=== PATIENT | female | born 1960 | race Hispanic/Latino ===

== ENCOUNTER 2018-03-25 06:45 | Day surgery (SDC) | payer OTHER ==
--- OUTSIDE RECORDS SUMMARY | 2018-03-25 06:57 | XMS REPORT ---
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, unspecified laterality Problem Breast cancer C50.919 Active Problem Post-menopausal bleeding N95.0 Active Problem Overactive bladder N32.81 Active Problem Mixed hyperlipidemia E78.2 Active Problem Colon polyps K63.5 Active Problem Chronic depressive person F34.1 Active Problem Other osteoporosis M81.8 Active Problem Edema R60.9 Active Problem Fatty liver K76.0 Active Problem Thrombocytopenia D69.6 Active Problem HTN (hypertension) I10 Active Problem Obesity E66.9 Active Problem 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 Problem Hyperglycemia R73.9 Active Problem Secondary esophageal varices I85.10 Active without bleeding Assessment Prediabetes R73.03 Active Problem Hypothyroidism E03.9 Active Problem Intramural leiomyoma of uterus D25.1 Active Medications Medication Code Code Instructions Start End Date Status Dosage System Date Metformin HCl [facility] 54503173889 500 MG Orally Active 1/2 Twice a day tablet with meals Results No Known Results Summary Purpose eClinicalWorks Submission
--- OUTSIDE RECORDS SUMMARY | 2018-03-25 06:57 | XMS REPORT ---
:1960 Author Organization e[employer]Works Care Team Providers Name Role Phone Murillo, Na Provider Role Unavailable Allergies, Adverse Reactions, Alerts Substance Reaction Event Type Lisinopril Info Not Available Drug Allergy Problems Problem Type Condition Code Onset Dates Condition Status Assessment Overactive bladder N32.81 Active Assessment Post-menopausal bleeding N95.0 Active Assessment Vaginal spotting N92.0 Active Assessment Urinary frequency R35.0 Active Problem Secondary esophageal varices I85.10 Active without bleeding Assessment Hematuria, unspecified R31.9 Active Problem Intramural leiomyoma of uterus D25.1 Active Assessment Urinary tract infection, site not N39.0 Active specified Problem Splenomegaly R16.1 Active Problem Allergic rhinitis, seasonal J30.2 Active Problem 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) Problem Vaginal spotting N92.0 Active Problem 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, unspecified laterality Problem Gastroesophageal reflux disease K21.9 Active Problem Breast cancer C50.919 Active Problem Overactive bladder N32.81 Active Problem Post-menopausal bleeding N95.0 Active Problem Mixed hyperlipidemia E78.2 Active Problem Colon polyps K63.5 Active Problem Chronic depressive person F34.1 Active Problem Other osteoporosis M81.8 Active Problem Edema R60.9 Active Problem Fatty liver K76.0 Active Problem Thrombocytopenia D69.6 Active Problem HTN (hypertension) I10 Active Problem Obesity E66.9 Active Problem 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 Problem Hyperglycemia R73.9 Active Problem Hypothyroidism E03.9 Active Medications Medication Code Code Instructions Start End Status Dosage System Date Date Levothyroxine [facility] 68314050936 112 MCG Orally Active 1 tablet on an Sodium Once a day empty stomach in the morning Macrobid [facility] 18726653927 100 MG Orally July Active 1 capsule with every 12 hrs 21, 28, food 2017 2017 Nadolol [facility] 75776337461 40MG Active TAKE ONE TABLET BY MOUTH ONCE DAILY Metformin HCl [facility] 73908893906 500 MG Orally Active 1/2 tablet Twice a day with meals Pennsaid [facility] 40829185989 2 % Active 2 applications Transdermal to affected Twice a day area Arimidex [facility] 13296282783 1 MG Orally Active 1 tablet Once a day Results No Known Results Summary Purpose eClinicalWorks Submission
--- OUTSIDE RECORDS SUMMARY | 2018-03-25 06:58 | XMS REPORT ---
[...] Secondary esophageal varices I85.10 Active without bleeding Problem Hypothyroidism E03.9 Active Problem Intramural leiomyoma of uterus D25.1 Active Medications No Known Medications Results No Known Results Summary Purpose eClinicalWorks Submission
--- OUTSIDE RECORDS SUMMARY | 2018-03-25 06:58 | XMS REPORT ---
:1960 Author Organization eClinicalWorks Care Team Providers Name Role Phone Tish Amor Provider Role Unavailable Allergies, Adverse Reactions, Alerts [...] in situ Z86.000 Active (DCIS) of breast Assessment Tinea B35.9 Active Problem Hyperglycemia R73.9 Active Problem Secondary esophageal varices I85.10 Active without bleeding Problem Hypothyroidism E03.9 Active Problem Intramural leiomyoma of uterus D25.1 Active Medications Medication Code Code Instructions Start End Status Dosage System Date Date Calcium + D [facility] [address] Active not defined Nadolol [facility] 01733891351 40MG Active TAKE ONE TABLET BY MOUTH ONCE DAILY Metformin HCl [facility] 52545962756 500 MG Orally Active 1/2 tablet Twice a day with meals Pennsaid [facility] 69565579627 2 % Active 2 applications Transdermal to affected Twice a day area Levothyroxine [facility] 57908227918 125 MCG Orally Active TAKE ONE Sodium Once a day TABLET BY MOUTH ONCE DAILY Diflucan [facility] 00821964284 150 MG Orally November Active 1 tablet once a week 2017 Fosamax [facility] [address]-89 Active not defined Arimidex [facility] 72313827512 1 MG Orally Active 1 tablet Once a day Results No Known Results Summary Purpose eClinicalWorks Submission
[2018-03-25] MEDS ORDERED: NA CHLORIDE 0.9% 1,000 ML ONE (07:00)
[2018-03-25 07:07] VITALS: TEMP 96.8
[2018-03-25] MEDS ORDERED: LIDOCAINE 1% MPF 5 ML VIAL ONE (07:45)
[2018-03-25] MEDS ORDERED: PROPOFOL 200 MG/20 ML VIAL IV ONE ×2 (07:45→08:15)
--- NOTE | 2018-03-25 08:17 | ENDO RPT ---
[address], [address] EGD PROCEDURE REPORT EXAM DATE: 03/25/2018 PATIENT NAME: Adry De Guzman MR#: [id number] BIRTHDATE: 1960 ATTENDING: Shailesh Lazcano Dr STATUS: outpatient NAIL TECH: Cecille Riley and Darling Solomon RN INDICATIONS: The patient is a 57 yr old Female here for an EGD due to bleeding varices PROCEDURE PERFORMED: EGD with banding MEDICATIONS: Per Anesthesia. TOPICAL ANESTHETIC: none CONSENT: The patient understands the risks and benefits of the procedure and understands that these risks include, but are not limited to: sedation, allergic reaction, infection, perforation and/or bleeding. Alternative means of evaluation and treatment include, among others: physical exam, x-rays, and/or surgical intervention. The patient elects to proceed with this endoscopic procedure. DESCRIPTION OF PROCEDURE: During intra-op preparation period all mechanical medical equipment was checked for proper function. Hand hygiene and appropriate measures for infection prevention was taken. Procedure, possible complications, and alternatives including but not limited to the possibility of bleeding, perforation, tear, infection, sepsis, need for surgery, need for blood transfusion, and anesthesia related complications were explained to the patient. After the risks, benefits and alternatives of the procedure were thoroughly explained, Informed consent was verified, confirmed and timeout was successfully executed by the treatment team. The patient was placed in the left lateral position. The patient was anesthetized with topical anesthesia. Through the anesthetized oropharyngeal area, the scope was passed without any difficulty. The Pentax EG-[id number] ([id number]) endoscope was introduced through the mouth and advanced to the second portion of the duodenum. Retroflexed views revealed a small hiatal hernia. The gastroscope was then slowly withdrawn and removed. Grade II varices were found in the lower esophagus. Esophageal banding was performed. A small hiatal hernia was found Mild gastritis was found in the body and the antrum of the stomach. A sessile polyp was found in the body of the stomach. ADVERSE EVENTS: There were no complications. IMPRESSIONS: 1. Two columns of grade II varices in the lower esophagus, s/p banding X2 2. Small hiatal hernia 3. Mild gastritis (bile induced) in the body and the antrum of the stomach 4. 4 sessile friable 3-5 mm polyps in the body of the stomach, with minor after abrasion with endoscope RECOMMENDATIONS: REPEAT EXAM: Shailesh Lazcano Dr eSigned: Shailesh Lazcano Dr 03/25/2018 8:08 AM cc: CPT CODES: ICD9 CODES: PATIENT NAME: Adry De Guzman MR#: [id number]
--- NOTE | 2018-03-25 08:31 | ENDO RPT ---
[address], [address] COLONOSCOPY PROCEDURE REPORT EXAM DATE: 03/25/2018 PATIENT NAME: Adry De Guzman MR #: [id number] BIRTHDATE: 1960 ATTENDING: Shailesh Lazcano Dr STATUS: outpatient NIGHT ORDER SELECTOR: Cecille Riley and Darling Solomon RN INDICATIONS: The patient is a 57 yr old Female here for a colonoscopy due to personal history of colon polyps PROCEDURE PERFORMED: Colonoscopy MEDICATIONS: Per Anesthesia. ESTIMATED BLOOD LOSS: None CONSENT: The patient understands the risks and benefits of the procedure and understands that these risks include, but are not limited to: sedation, allergic reaction, infection, perforation and/or bleeding. Alternative means of evaluation and treatment include, among others: physical exam, x-rays, and/or surgical intervention. The patient elects to proceed with this endoscopic procedure. DESCRIPTION OF PROCEDURE: During intra-op preparation period all mechanical medical equipment was checked for proper function. Hand hygiene and appropriate measures for infection prevention was taken. Procedure, possible complications, alternatives including, but not limited to possibility of bleeding, perforation, tear, infection, sepsis, need for surgery, need for blood transfusion, were explained to the patient. After the risks, benefits and alternatives of the procedure were thoroughly explained, Informed consent was verified, confirmed and timeout was successfully executed by the treatment team. The patient was placed in the left lateral position. A digital rectal exam was performed and revealed no abnormalities of the rectum. After appropriate level of anesthesia, the scope was passed. The EG-2990i ([id number]) and EC-[id number] ([id number]) endoscope was introduced through the anus and advanced to the terminal ileum which was intubated for a short distance. The quality of the prep was good. The instrument was then slowly withdrawn as the colon was fully examined. Scope withdrawal time was 7 minutes. COLON FINDINGS: Mild diverticulosis was noted in the sigmoid colon. Small internal hemorrhoids were found. Retroflexed views revealed small hemorrhoids. The scope was then completely withdrawn from the patient and the procedure terminated. ADVERSE EVENTS: There were no complications. IMPRESSIONS: 1. Mild diverticulosis in the sigmoid colon 2. Small internal hemorrhoids 3. Intubation to terminal ileum RECOMMENDATIONS: fiber rich diet RECALL: Return in 3 year(s) for Colonoscopy. Shailesh Lazcano Dr eSigned: Shailesh Lazcano Dr 03/25/2018 8:31 AM cc: Melinda Murillo M.D. CPT CODES: ICD9 CODES: PATIENT NAME: Adry De Guzman MR#: [id number]
[2018-03-25 08:51] VITALS: O2SAT 98
[2018-03-25 08:52] VITALS: BP 134/63
== END 2018-03-25 08:55 | disposition home or self-care (01) ==
LOC: OR 06:45
PROVIDERS: ATTEND Internal Medicine Gastroenterology
PROC: 0DJD8ZZ Inspection of Lower Intestinal Tract, Via Natural or Artificial Opening Endoscopic (ICD-10-PCS; principal; 2018-03-25 08:45)
PROC: 0W3P8ZZ Control Bleeding in Gastrointestinal Tract, Via Natural or Artificial Opening Endoscopic (ICD-10-PCS; 2018-03-25 08:45)
DX: I85.01 Esophageal varices with bleeding (principal); K29.60 Other gastritis without bleeding; K57.30 Diverticulosis of large intestine without perforation or abscess without bleeding; K31.7 Polyp of stomach and duodenum; K44.9 Diaphragmatic hernia without obstruction or gangrene; K64.8 Other hemorrhoids; K21.9 Gastro-esophageal reflux disease without esophagitis; E11.9 Type 2 diabetes mellitus without complications; I10 Essential (primary) hypertension; E03.9 Hypothyroidism, unspecified; Z86.010 Personal history of colon polyps; Z85.3 Personal history of malignant neoplasm of breast; Z87.891 Personal history of nicotine dependence; Z88.8 Allergy status to other drugs, medicaments and biological substances; Z83.71 Family history of colonic polyps; Z82.49 Family history of ischemic heart disease and other diseases of the circulatory system
CPT/HCPCS: 82962; J2704; J7030

== ENCOUNTER 2018-08-17 16:38 | Emergency (ER) | payer OTHER ==
--- OUTSIDE RECORDS SUMMARY | 2018-08-17 16:41 | XMS REPORT ---
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) Problem Seasonal allergies J30.2 Active Problem Esophageal varices determined by I85.00 Active endoscopy Problem Gastroesophageal reflux disease K21.9 Active Problem Breast cancer C50.919 Active Problem Personal history of malignant Z85.3 Active neoplasm of breast Problem Post-menopausal bleeding N95.0 Active Problem Mixed hyperlipidemia E78.2 Active Problem Colon polyps K63.5 Active Problem Vaginal spotting N92.0 Active Problem Overactive bladder N32.81 Active Problem Edema R60.9 Active Problem Fatty liver K76.0 Active Problem Thrombocytopenia D69.6 Active Problem HTN (hypertension) I10 Active Problem Obesity E66.9 Active Problem 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 Problem Hyperglycemia R73.9 Active Problem Hypothyroidism E03.9 Active Medications Medication Code Code Instructions Start End Date Status Dosage System Date Cyclobenzaprine [facility] 34607199046 10 MG Orally July Active 1 tablet HCl once a day at 2018 as bedtime needed Results No Known Results Summary Purpose eClinicalWorks Submission
--- OUTSIDE RECORDS SUMMARY | 2018-08-17 16:41 | XMS REPORT ---
[...] R73.9 Active Problem Hypothyroidism E03.9 Active Medications No Known Medications Results No Known Results Summary Purpose eClinicalWorks Submission
--- OUTSIDE RECORDS SUMMARY | 2018-08-17 16:41 | XMS REPORT ---
:1960 Author Organization eClinicalWorks Care Team Providers Name Role Phone Murillo, Na Provider Role Unavailable Allergies, Adverse Reactions, Alerts Substance Reaction Event Type Lisinopril Info Not Available Drug Allergy Problems Problem Type Condition Code Onset Dates Condition Status Assessment Seasonal allergies J30.2 Active Assessment Encounter for follow-up examination Z08 Active after completed treatment for malignant neoplasm Assessment 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 Assessment Hypothyroidism E03.9 Active Assessment HTN (hypertension) I10 Active Assessment Prediabetes R73.03 Active Assessment Ingrown nail of great toe of right L60.0 Active foot Problem Other osteoporosis M81.8 Active Problem Chronic [...] N92.0 Active Problem Overactive bladder N32.81 Active Assessment Mastodynia N64.4 Active Problem Edema R60.9 Active Assessment Personal history of malignant Z85.3 Active neoplasm of breast Problem Fatty liver K76.0 Active Assessment Esophageal varices determined by I85.00 Active endoscopy Problem Thrombocytopenia D69.6 Active Assessment Unspecified lump in the left N63.20 Active breast, unspecified quadrant Problem HTN (hypertension) I10 Active Problem Obesity E66.9 Active Assessment Screening, lipid Z13.220 Active Problem 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 Problem Hyperglycemia R73.9 Active Problem Hypothyroidism E03.9 Active Medications Medication Code Code Instructions Start End Status Dosage System Date Date Metformin HCl [facility] 46508563840 500 MG Orally Active 1/2 tablet Twice a day with meals Calcium + D [facility] [address] Active not defined Arimidex [facility] 78972749784 1 MG Orally Active 1 tablet Once a day Keflex [facility] 22756700809 500 MG Orally Jun 30 Active 1 capsule every 12 hrs 2018 Diflucan [facility] 23104463059 150 MG Orally November Active 1 tablet once a week 2017 Nadolol [facility] 63378610386 40MG Active TAKE ONE TABLET BY MOUTH ONCE DAILY Nadolol [facility] 73118339133 40MG Active TAKE ONE TABLET BY MOUTH ONCE DAILY Levothyroxine [facility] 75123689673 112 MCG Orally Active 1 tablet on an Sodium Once a day empty stomach in the morning Pennsaid [facility] 91857085332 2 % Active 2 applications Transdermal to affected Twice a day area Levothyroxine [facility] 15238281893 125 MCG Orally Active TAKE ONE Sodium Once a day TABLET BY MOUTH ONCE DAILY Fosamax [facility] [address]-89 Active not defined Results No Known Results Summary Purpose eClinicalWorks Submission
--- OUTSIDE RECORDS SUMMARY | 2018-08-17 16:41 | XMS REPORT ---
[...] Date Status Dosage System Date Metformin HCl [facility] 68756051703 500 MG Orally Active 1/2 Twice a day tablet with meals Results No Known Results Summary Purpose eClinicalWorks Submission
--- OUTSIDE RECORDS SUMMARY | 2018-08-17 16:41 | XMS REPORT ---
[...] End Status Dosage System Date Date Levothyroxine [facility] 81136499428 112 MCG Orally Active 1 tablet on an Sodium Once a day empty stomach in the morning Macrobid [facility] 79518883910 100 MG Orally July Active 1 capsule with every 12 hrs 21, 28, food 2017 2017 Nadolol [facility] 30672080955 40MG Active TAKE ONE TABLET BY MOUTH ONCE DAILY Metformin HCl [facility] 48127828391 500 MG Orally Active 1/2 tablet Twice a day with meals Pennsaid [facility] 04518004424 2 % Active 2 applications Transdermal to affected Twice a day area Arimidex [facility] 03510696949 1 MG Orally Active 1 tablet Once a day Results No Known Results Summary Purpose eClinicalWorks Submission
--- OUTSIDE RECORDS SUMMARY | 2018-08-17 16:41 | XMS REPORT ---
[...] Dosage System Date Date Calcium + D [facility] [address] Active not defined Nadolol [facility] 27526323757 40MG Active TAKE ONE TABLET BY MOUTH ONCE DAILY Metformin HCl [facility] 24277881334 500 MG Orally Active 1/2 tablet Twice a day with meals Pennsaid [facility] 69591045625 2 % Active 2 applications Transdermal to affected Twice a day area Levothyroxine [facility] 70721732203 125 MCG Orally Active TAKE ONE Sodium Once a day TABLET BY MOUTH ONCE DAILY Diflucan [facility] 65391187734 150 MG Orally November Active 1 tablet once a week 2017 Fosamax [facility] [address]-41 Active not defined Arimidex [facility] 06374925728 1 MG Orally Active 1 tablet Once a day Results No Known Results Summary Purpose eClinicalWorks Submission
[2018-08-17] MEDS ORDERED: DIAZEPAM 2 MG TABLET ONE (18:00)
--- NOTE | 2018-08-17 18:46 | RAD REPORT ---
EXAM DESCRIPTION: RAD - Knee Left 3 View - 08/17/2018 5:40 pm CLINICAL HISTORY: knee pain COMPARISON: Knee Left 3 View dated 11/07/2016 FINDINGS: Mild arthritic changes are present. No fracture, dislocation or aggressive marrow pattern. No intraarticular joint effusion.
--- NOTE | 2018-08-17 18:47 | RAD REPORT ---
EXAM DESCRIPTION: US - Extremity Venous Uni Ltd - 08/17/2018 6:06 pm CLINICAL HISTORY: PAIN Leg swelling and edema. COMPARISON: No comparisons FINDINGS: Left lower extremity venous system was interrogated with Doppler technique. Normal flow, c ompressibility and augmentation was noted. There is no DVT present. IMPRESSION: No evidence of left lower extremity deep venous thrombosis.
--- NOTE | 2018-08-17 19:06 | EDPHYS ---
Physician Documentation [facility] Name: Adry De Guzman Age: 58 yrs Sex: Female : 1960 Arrival Date: 08/17/2018 Time: 16:40 Bed 17 Private MD: ED Physician Bebo Noav HPI: 08/17 16:51 This 58 yrs old Female presents to ER via Ambulatory with complaints of Leg jmm Pain. 16:51 The patient presents with an injury, pain. Onset: The symptoms/episode began/occurred jmm gradually, 3 week(s) ago. Modifying factors: The symptoms are alleviated by nothing. the symptoms are aggravated by nothing. This is a 58 year old female with a history of dm, htn that presents to the ED with complaints of left lateral knee pain, calf pain, and left posterior knee pain. Symptoms have been intermittent over the past 3 weeks worsening over the past week. Patient prescribed muscle relaxer with no relief. Patient denies chest pain, denies shortness of breath. Denies fever. . Historical: - Allergies: 16:46 Lisinopril; la1 - PMHx: 16:46 Hypertension; Hypothyroidism; Osteoporosis; Diabetes - NIDDM; breast CA; liver fibrosis;la1 - PSHx: 16:46 Cholecystectomy; Lumpectomy; la1 - Immunization history:: Adult Immunizations up to date. - Social history:: Smoking status: Patient/guardian denies using tobacco. - Ebola Screening: : No symptoms or risks identified at this time. ROS: 16:51 Constitutional: Negative for fever, chills, and weight loss, Cardiovascular: Negative jmm for chest pain, palpitations, and edema, Respiratory: Negative for shortness of breath, cough, wheezing, and pleuritic chest pain. 16:51 MS/extremity: Positive for pain. 16:51 All other systems are negative. Exam: 16:51 Constitutional: This is a well developed, well nourished patient who is awake, alert, jmm and in no acute distress. Head/Face: atraumatic. Eyes: EOMI, no conjunctival erythema appreciated ENT: Moist Mucus Membranes Neck: Trachea midline, Supple Chest/axilla: Normal chest wall appearance and motion. Cardiovascular: Regular rate and rhythm. No edema appreciated Respiratory: Normal respirations, no respiratory distress appreciated Abdomen/GI: Non distended, soft Back: Normal ROM Skin: General appearance color normal 16:51 Musculoskeletal/extremity: FROM appreciated to the left knee, no erythema or swelling is appreciated, pain localized to the lateral posterior region. compartments are soft, full dorsalis pedis pulse, NVI. 16:51 Skin: Appearance: Color: normal in color. 16:51 Neuro: Orientation: is normal, Mentation: is normal, Memory: is normal. 16:51 Psych: Behavior/mood is pleasant, cooperative. Vital Signs: 16:46 BP 145 / 67; Pulse 71; Resp 16; Temp 97.3; Pulse Ox 98% on R/A; Weight 111.58 kg; la1 Height 5 ft. 6 in. (167.64 cm); 19:05 BP 148 / 63; Pulse 75; Resp 17 S; Pulse Ox 98% on R/A; cc3 16:46 Body Mass Index 39.71 (111.58 kg, 167.64 cm) la1 MDM: 16:51 Patient medically screened. coco 19:04 Data reviewed: vital signs, nurses notes. Counseling: I had a detailed discussion with teresa the patient and/or guardian regarding: the historical points, exam findings, and any diagnostic results supporting the discharge/admit diagnosis, radiology results, the need for outpatient follow up, to return to the emergency department if symptoms worsen or persist or if there are any questions or concerns that arise at home. ED course: Imaging studies negative. No SOB, NO Chest pain. I do not suspect PE. Patient advised to follow up with ortho for further evaluation. patient understood and agrees with the plan of care. . 08/17 17:07 Order name: Knee Left 3 View XRAY; Complete Time: 18:49 [facility] 08/17 17:07 Order name: US Extremity Venous Unilateral Ltd; Complete Time: 18:49 [facility] Administered Medications: 17:51 Drug: Valium 2 mg Route: PO; em 19:00 Follow up: Response: No adverse reaction cc3 Disposition: 08/18 08:01 Co-signature as Attending Physician, Bebo Nova MD I agree with the assessment and [facility] plan of care. Chart complete. Disposition: 08/17/18 19:05 Discharged to Home. Impression: Pain in left leg. - Condition is Stable. - Discharge Instructions: Musculoskeletal Pain. - Prescriptions for Tramadol 50 mg Oral Tablet - take 1 tablet by ORAL route every 8 hours as needed; 12 tablet. - Medication Reconciliation Form, Thank You Letter, Antibiotic Education, Prescription Opioid Use form. - Follow up: Jorge Mcnamara MD; When: 2 - 3 days; Reason: Recheck today's complaints, Continuance of care, Re-evaluation by your physician. Signatures: Dispatcher [employer] Bebo Painter MD MD cha Mickail, Joel, PA PA jmm Munoz, Edgar, SPEED RUNNER SPEED RUNNER Won Serrano RN RN la1 Maryann Couch cc3 Corrections: (The following items were deleted from the chart) 08/17 19:19 19:05 08/17/2018 19:05 Discharged to Home. Impression: Pain in left leg. Condition is cc3 Stable. Forms are Medication Reconciliation Form, Thank You Letter, Antibiotic Education, Prescription Opioid Use. Follow up: Jorge Mcnamara; When: 2 - 3 days; Reason: Recheck today's complaints, Continuance of care, Re-evaluation by your physician. teresa
--- NOTE | 2018-08-17 19:06 | ER ---
Nurse's Notes [facility] Name: Adry De Guzman Age: 58 yrs Sex: Female : 1960 Arrival Date: 08/17/2018 Time: 16:40 Bed 17 Private MD: Diagnosis: Pain in left leg Presentation: 08/17 16:44 Presenting complaint: Patient states: I have had a pain behind my left knee and down my la1 calf for about 3 weeks. Pt denies CP/SOB. Transition of care: patient was not received from another setting of care. Onset of symptoms was August 17, 2018. Risk Assessment: Do you want to hurt yourself or someone else? Patient reports no desire to harm self or others. Initial Sepsis Screen: Does the patient meet any 2 criteria? No. Patient's initial sepsis screen is negative. Does the patient have a suspected source of infection? No. Patient's initial sepsis screen is negative. Care prior to arrival: None. 16:44 Method Of Arrival: Ambulatory la1 16:44 Acuity: JULEE 3 la1 Historical: - Allergies: 16:46 Lisinopril; la1 - PMHx: 16:46 Hypertension; Hypothyroidism; Osteoporosis; Diabetes - NIDDM; breast CA; liver fibrosis;la1 - PSHx: 16:46 Cholecystectomy; Lumpectomy; la1 - Immunization history:: Adult Immunizations up to date. - Social history:: Smoking status: Patient/guardian denies using tobacco. - Ebola Screening: : No symptoms or risks identified at this time. Screenin:15 Abuse screen: Denies threats or abuse. Nutritional screening: No deficits noted. em Tuberculosis screening: No symptoms or risk factors identified. Fall Risk None identified. Assessment: 17:15 General: Appears in no apparent distress. comfortable, Behavior is calm, cooperative, em Denies fever. Pain: Complains of pain in posterior aspect of left knee Pain currently is 7 out of 10 on a pain scale. Neuro: Level of Consciousness is awake, alert, obeys commands, Oriented to person, place, time, situation. Cardiovascular: Denies chest pain, Capillary refill < 3 seconds Patient's skin is warm and dry. Respiratory: Airway is patent Respiratory effort is even, unlabored, Respiratory pattern is regular, symmetrical, Breath sounds are clear bilaterally. Denies shortness of breath. Derm: Skin is intact, is healthy with good turgor, Skin is pink, warm \T\ dry. Musculoskeletal: Capillary refill < 3 seconds, Range of motion: intact in all extremities. 17:25 Reassessment: I agree with previous assessment. hb 18:42 Reassessment: Patient appears in no apparent distress at this time. Patient and/or em family updated on plan of care and expected duration. Pain level reassessed. Patient is alert, oriented x 3, equal unlabored respirations, skin warm/dry/pink. pending results. 19:00 Reassessment: Patient appears in no apparent distress at this time. Patient and/or cc3 family updated on plan of care and expected duration. Pain level reassessed. Patient is alert, oriented x 3, equal unlabored respirations, skin warm/dry/pink. 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 No IV cannula in situ. Patient denies pain at this time. Patient states feeling better. 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 No IV cc3 cannula in situ. Patient left ER vitally stable and ambulatory with her daughter. Vital Signs: 16:46 BP 145 / 67; Pulse 71; Resp 16; Temp 97.3; Pulse Ox 98% on R/A; Weight 111.58 kg; la1 Height 5 ft. 6 in. (167.64 cm); 19:05 BP 148 / 63; Pulse 75; Resp 17 S; Pulse Ox 98% on R/A; cc3 16:46 Body Mass Index 39.71 (111.58 kg, 167.64 cm) la1 ED Course: 16:40 Patient arrived in ED. as 16:44 Triage completed. la1 16:46 Arm band placed on right wrist. la1 16:47 Chris Mireles PA is PHCP. jose carlos 16:47 Bebo Nova MD is Attending Physician. bairon 16:47 Carter Church LVN is Primary Nurse. em 17:15 Patient has correct armband on for positive identification. Placed in gown. Bed in low em position. Call light in reach. Adult w/ patient. 17:40 Knee Left 3 View XRAY In Process Unspecified. EDMS 18:05 US Extremity Venous Unilateral Ltd In Process Unspecified. EDMS 18:05 Ultrasound completed. Patient tolerated well. sg3 19:05 Jorge Mcnamara MD is Referral Physician. [facility] 19:15 No provider procedures requiring assistance completed. Patient did not have IV access cc3 during this emergency room visit. Administered Medications: 17:51 Drug: Valium 2 mg Route: PO; em 19:00 Follow up: Response: No adverse reaction cc3 Outcome: 19:05 Discharge ordered by . [facility] 19:15 Discharged to home ambulatory, with family. cc3 19:15 Condition: stable 19:15 Discharge instructions given to patient, family, Instructed on discharge instructions, follow up and referral plans. medication usage, Demonstrated understanding of instructions, follow-up care, medications, Prescriptions given X 1. 19:19 Patient left the ED. cc3 Signatures: Dispatcher [employer] EDMS Chris Mireles PA PA m Carter Church, [employer] em Bety Emmanuel Lee RN RN la1 Maribel Thompson RN RN Tania Brush sg3 Maryann Couch cc3
[2018-08-17 19:22] VITALS: BP 145/67; TEMP 97.3; O2SAT 98
== END 2018-08-17 19:19 | disposition home or self-care (01) ==
LOC: ER 16:38
DX: M25.562 Pain in left knee (principal); I10 Essential (primary) hypertension; E03.9 Hypothyroidism, unspecified; E11.9 Type 2 diabetes mellitus without complications; C50.919 Malignant neoplasm of unspecified site of unspecified female breast
CPT/HCPCS: 93971; 99283

== ENCOUNTER 2018-09-11 10:22 | Emergency (ER) | payer OTHER ==
--- OUTSIDE RECORDS SUMMARY | 2018-09-11 10:31 | XMS REPORT ---
[...] Date Status Dosage System Date Metformin HCl [facility] 86177686021 500 MG Orally Active 1/2 Twice a day tablet with meals Results No Known Results Summary Purpose eClinicalWorks Submission
--- OUTSIDE RECORDS SUMMARY | 2018-09-11 10:31 | XMS REPORT ---
[...] Dosage System Date Date Calcium + D [facility] [address] Active not defined Nadolol [facility] 54260482746 40MG Active TAKE ONE TABLET BY MOUTH ONCE DAILY Metformin HCl [facility] 40611392692 500 MG Orally Active 1/2 tablet Twice a day with meals Pennsaid [facility] 33136712140 2 % Active 2 applications Transdermal to affected Twice a day area Levothyroxine [facility] 96330395372 125 MCG Orally Active TAKE ONE Sodium Once a day TABLET BY MOUTH ONCE DAILY Diflucan [facility] 69925110042 150 MG Orally November Active 1 tablet once a week 2017 Fosamax [facility] [address]-84 Active not defined Arimidex [facility] 55691533232 1 MG Orally Active 1 tablet Once a day Results No Known Results Summary Purpose eClinicalWorks Submission
--- OUTSIDE RECORDS SUMMARY | 2018-09-11 10:32 | XMS REPORT ---
[...] End Date Status Dosage System Date Cyclobenzaprine [facility] 14766253522 10 MG Orally July Active 1 tablet HCl once a day at 2018 as bedtime needed Results No Known Results Summary Purpose eClinicalWorks Submission
--- OUTSIDE RECORDS SUMMARY | 2018-09-11 10:32 | XMS REPORT ---
[...] Status Dosage System Date Date Metformin HCl [facility] 10373574475 500 MG Orally Active 1/2 tablet Twice a day with meals Calcium + D [facility] [address] Active not defined Arimidex [facility] 68830502633 1 MG Orally Active 1 tablet Once a day Keflex [facility] 80287396917 500 MG Orally Jun 30 Active 1 capsule every 12 hrs 2018 Diflucan [facility] 41963657755 150 MG Orally November Active 1 tablet once a week 2017 Nadolol [facility] 92922564866 40MG Active TAKE ONE TABLET BY MOUTH ONCE DAILY Nadolol [facility] 95807531966 40MG Active TAKE ONE TABLET BY MOUTH ONCE DAILY Levothyroxine [facility] 03283712766 112 MCG Orally Active 1 tablet on an Sodium Once a day empty stomach in the morning Pennsaid [facility] 07828937782 2 % Active 2 applications Transdermal to affected Twice a day area Levothyroxine [facility] 68323726952 125 MCG Orally Active TAKE ONE Sodium Once a day TABLET BY MOUTH ONCE DAILY Fosamax [facility] [address]-35 Active not defined Results No Known Results Summary Purpose eClinicalWorks Submission
--- NOTE | 2018-09-11 11:52 | ER ---
Nurse's Notes [facility] Name: Adry De Guzman Age: 58 yrs Sex: Female : 1960 Arrival Date: 09/11/2018 Time: 10:24 Bed 5 Private MD: Diagnosis: Pain in left leg Presentation: 09/11 10:45 Presenting complaint: Patient states: was seen here in July for left leg pain, had US iw done and was negative, is due to see ortho on September 23 but pain has increased and pain medicine isn't working, c/o pain to entire left leg. Transition of care: patient was not received from another setting of care. Onset of symptoms was July 2018. Risk Assessment: Do you want to hurt yourself or someone else? Patient reports no desire to harm self or others. Initial Sepsis Screen: Does the patient meet any 2 criteria? No. Patient's initial sepsis screen is negative. Does the patient have a suspected source of infection? No. Patient's initial sepsis screen is negative. Care prior to arrival: None. 10:45 Method Of Arrival: Ambulatory iw 10:45 Acuity: JULEE 4 iw Historical: - Allergies: 10:47 Lisinopril; iw - Home Meds: 10:50 nadolol 40 mg oral tab 1 tab once daily [Active]; levothyroxine oral 118 mcg once daily iw [Active]; metformin 500 mg oral Tb24 daily [Active]; Fosamax Oral [Active]; anastrozole 1 mg oral tab 1 tab once daily [Active]; Nexium 40 mg Oral cpDR 1 cap once daily [Active]; - PMHx: 10:47 BREAST CA; Diabetes - NIDDM; Hypertension; Hypothyroidism; liver fibrosis; Osteoporosis;iw - PSHx: 10:47 Cholecystectomy; Lumpectomy; iw - Immunization history:: Adult Immunizations. - Social history:: Smoking status: Patient/guardian denies using tobacco. - Ebola Screening: : Patient negative for fever greater than or equal to 101.5 degrees Fahrenheit, and additional compatible Ebola Virus Disease symptoms Patient denies exposure to infectious person Patient denies travel to an Ebola-affected area in the 21 days before illness onset No symptoms or risks identified at this time. - Family history:: not pertinent. - Hospitalizations: : No recent hospitalization is reported. Screenin:54 Abuse screen: Denies threats or abuse. Nutritional screening: No deficits noted. tw2 Tuberculosis screening: No symptoms or risk factors identified. Fall Risk None identified. Assessment: 10:59 General: Appears obese, well groomed, Behavior is calm, cooperative, appropriate for tw2 age. Pain: Complains of pain in posterior aspect of left knee and left calf. Neuro: Level of Consciousness is awake, alert, obeys commands, Oriented to person, place, time, situation. Cardiovascular: Patient's skin is warm and dry. Respiratory: Airway is patent Respiratory effort is even, unlabored, Respiratory pattern is regular, symmetrical. GI: No signs and/or symptoms were reported involving the gastrointestinal system. : No signs and/or symptoms were reported regarding the genitourinary system. EENT: No signs and/or symptoms were reported regarding the EENT system. Derm: No signs and/or symptoms reported regarding the dermatologic system. Musculoskeletal: Reports pain in posterior aspect of left knee and left calf "the pain has increased and i cant take the hydrocodone for pain it makes me sick like and drowsy and i have an appt on September 23, but i need something to help with the pain because i cant sleep well". 12:00 Reassessment: Patient appears in no apparent distress at this time. Patient and/or tw2 family updated on plan of care and expected duration. Pain level reassessed. Patient is alert, oriented x 3, equal unlabored respirations, skin warm/dry/pink. Vital Signs: 10:47 BP 143 / 79; Pulse 79; Resp 16; Temp 97.9(TE); Pulse Ox 98% on R/A; Weight 112.94 kg; iw Height 5 ft. 5 in. (165.10 cm); Pain 10/10; 10:47 Body Mass Index 41.44 (112.94 kg, 165.10 cm) iw ED Course: 10:24 Patient arrived in ED. as 10:47 Triage completed. iw 10:47 Arm band placed on. iw 10:53 Nya Gage, RN is Primary Nurse. tw2 10:54 Placed in gown. Bed in low position. Pulse ox on. NIBP on. tw2 11:04 Abner Edouard MD is Attending Physician. rn 12:01 No provider procedures requiring assistance completed. Patient did not have IV access tw2 during this emergency room visit. Administered Medications: No medications were administered Outcome: 11:51 Discharge ordered by . rn 12:01 Discharged to home via wheelchair, with family. tw2 12: Condition: stable 12:01 Discharge instructions given to patient, family, Instructed on discharge instructions, follow up and referral plans. no drinking with medication, no driving heavy equipment, medication usage, Demonstrated understanding of instructions, follow-up care, medications, Prescriptions given X 1. 12:01 Patient left the ED. tw2 Signatures: Bety Emmanuel Irene, RN RN iw Abner Edouard MD MD rn Wise, Tara, RN RN tw2
--- NOTE | 2018-09-11 11:52 | EDPHYS ---
Physician Documentation [facility] Name: Adry De Guzman Age: 58 yrs Sex: Female : 1960 Arrival Date: 09/11/2018 Time: 10:24 Bed 5 Private MD: ED Physician Abner Edouard HPI: 09/11 11:47 This 58 yrs old Female presents to ER via Ambulatory with complaints of Leg rn Pain. 11:47 The patient presents with pain. The complaints affect the left leg and left calf and rn posterior aspect of left knee. Onset: The symptoms/episode began/occurred 2 month(s) ago. Modifying factors: The symptoms are alleviated by nothing. the symptoms are aggravated by weight bearing. Severity of symptoms: At their worst the symptoms were mild, in the emergency department the symptoms have improved. The patient has experienced similar episodes in the past. Reports left leg pain, reports better with walking but hurts at beginning, no swelling or injury, seen before for it, has had neg plain films and ultrasound. Reports has known osteoarthritis/tendonitis/bursitis. . Historical: - Allergies: 10:47 Lisinopril; iw - Home Meds: 10:50 nadolol 40 mg oral tab 1 tab once daily [Active]; levothyroxine oral 118 mcg once daily iw [Active]; metformin 500 mg oral Tb24 daily [Active]; Fosamax Oral [Active]; anastrozole 1 mg oral tab 1 tab once daily [Active]; Nexium 40 mg Oral cpDR 1 cap once daily [Active]; - PMHx: 10:47 BREAST CA; Diabetes - NIDDM; Hypertension; Hypothyroidism; liver fibrosis; Osteoporosis;iw - PSHx: 10:47 Cholecystectomy; Lumpectomy; iw - Immunization history:: Adult Immunizations. - Social history:: Smoking status: Patient/guardian denies using tobacco. - Ebola Screening: : Patient negative for fever greater than or equal to 101.5 degrees Fahrenheit, and additional compatible Ebola Virus Disease symptoms Patient denies exposure to infectious person Patient denies travel to an Ebola-affected area in the 21 days before illness onset No symptoms or risks identified at this time. - Family history:: not pertinent. - Hospitalizations: : No recent hospitalization is reported. ROS: 11:47 Constitutional: Negative for fever, chills, and weight loss, Eyes: Negative for injury, rn pain, redness, and discharge, Cardiovascular: Negative for chest pain, palpitations, and edema, Respiratory: Negative for shortness of breath, cough, wheezing, and pleuritic chest pain, Abdomen/GI: Negative for abdominal pain, nausea, vomiting, diarrhea, and constipation, Back: Negative for injury and pain, MS/Extremity: Negative for injury and deformity, Skin: Negative for injury, rash, and discoloration, Neuro: Negative for headache, weakness, numbness, tingling, and seizure. Exam: 11:47 Constitutional: This is a well developed, well nourished patient who is awake, alert, rn and in no acute distress. Skin: Warm, dry with normal turgor. Normal color with no rashes, no lesions, and no evidence of cellulitis. MS/ Extremity: Pulses equal, no cyanosis. Neurovascular intact. Full, normal range of motion. Equal circumference. Neuro: Awake and alert, GCS 15, oriented to person, place, time, and situation. Cranial nerves II-XII grossly intact. Motor strength 5/5 in all extremities. Sensory grossly intact. Cerebellar exam normal. Normal gait. Vital Signs: 10:47 BP 143 / 79; Pulse 79; Resp 16; Temp 97.9(TE); Pulse Ox 98% on R/A; Weight 112.94 kg; iw Height 5 ft. 5 in. (165.10 cm); Pain 10/10; 10:47 Body Mass Index 41.44 (112.94 kg, 165.10 cm) iw MDM: 11:04 Patient medically screened. rn 11:47 Differential diagnosis: tendonitis, bursitis, muscle pain, arthritis. Data reviewed: rn vital signs, nurses notes, old medical records, and as a result, I will discharge patient. Counseling: I had a detailed discussion with the patient and/or guardian regarding: the historical points, exam findings, and any diagnostic results supporting the discharge/admit diagnosis, the need for outpatient follow up, to return to the emergency department if symptoms worsen or persist or if there are any questions or concerns that arise at home. Special discussion: I discussed with the patient/guardian in detail that at this point there is no indication for admission to the hospital. It is understood, however, that if the symptoms persist or worsen the patient needs to return immediately for re-evaluation. Based on the history and exam findings, there is no indication for further emergent testing or inpatient evaluation. I discussed with the patient/guardian the need to see the primary care provider for further evaluation of the symptoms. ED course: NO current pain or abnormal exam, will dc home with steroids/muscle relaxer, pain meds.. Administered Medications: No medications were administered Disposition: 09/11/18 11:51 Discharged to Home. Impression: Pain in left leg. - Condition is Stable. - Discharge Instructions: Musculoskeletal Pain. - Prescriptions for Ultram 50 mg Oral Tablet - take 1 tablet by ORAL route every 6 hours As needed; 15 tablet. Cyclobenzaprine 10 mg Oral Tablet - take 1 tablet by ORAL route every 8 hours As needed; 20 tablet. Medrol ([place]) 4 mg Oral Tablets, Dose Pack - take 1 tablet by ORAL route as directed - follow package instructions; 1 packet. - Medication Reconciliation Form, Thank You Letter, Antibiotic Education, Prescription Opioid Use form. - Follow up: Private Physician; When: As needed; Reason: Recheck today's complaints, Re-evaluation by your physician. - Problem is an ongoing problem. - Symptoms are unchanged. Signatures: Daxa Goldberg RN RN iw Abner Edouard MD MD rn Wise, Tara, RN RN tw2 Corrections: (The following items were deleted from the chart) 12:01 11:51 09/11/2018 11:51 Discharged to Home. Impression: Pain in left leg. Condition is tw2 Stable. Forms are Medication Reconciliation Form, Thank You Letter, Antibiotic Education, Prescription Opioid Use. Follow up: Private Physician; When: As needed; Reason: Recheck today's complaints, Re-evaluation by your physician. Problem is an ongoing problem. Symptoms are unchanged. rn
[2018-09-11 12:50] VITALS: BP 143/79; TEMP 97.9; O2SAT 98
== END 2018-09-11 12:01 | disposition home or self-care (01) ==
LOC: ER 10:22
DX: M79.662 Pain in left lower leg (principal); C50.919 Malignant neoplasm of unspecified site of unspecified female breast; E11.9 Type 2 diabetes mellitus without complications; I10 Essential (primary) hypertension; E03.9 Hypothyroidism, unspecified; Z79.84 Long term (current) use of oral hypoglycemic drugs
CPT/HCPCS: 99283

== ENCOUNTER 2019-01-12 18:24 | Emergency (ER) | payer OTHER ==
--- OUTSIDE RECORDS SUMMARY | 2019-01-12 18:26 | XMS REPORT ---
:1960 Author Organization e[employer]Works Care Team Providers Name Role Phone Murillo, Na Provider Role Unavailable Allergies, Adverse Reactions, Alerts Substance Reaction Event Type Lisinopril Info Not Available Drug Allergy Problems Problem Type Condition Code Onset Dates Condition Status Assessment Varicose veins of both lower I83.813 Active extremities with pain Assessment Trochanteric bursitis of left hip M70.62 Active Assessment Acute pain of left knee M25.562 Active Problem Post-menopausal bleeding N95.0 Active Problem Breast cancer C50.919 Active Problem Gastroesophageal reflux disease K21.9 Active Problem Colon polyps K63.5 Active Problem Mixed hyperlipidemia E78.2 Active Problem Thrombocytopenia D69.6 Active Problem Other osteoporosis M81.8 Active Problem Chronic depressive person F34.1 Active Problem 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 Problem Esophageal varices determined by I85.00 Active endoscopy Problem Personal history of malignant Z85.3 Active neoplasm of breast Problem Fatty liver K76.0 Active Problem Edema R60.9 Active Problem Varicose veins of both lower I83.813 Active extremities with pain Problem HTN (hypertension) I10 Active Problem Vaginal spotting N92.0 Active Problem 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, unspecified laterality Problem Seasonal allergies J30.2 Active Problem Overactive bladder N32.81 Active Problem Obesity E66.9 Active Problem Secondary esophageal varices I85.10 Active without bleeding Problem Hyperglycemia R73.9 Active Problem Hypothyroidism E03.9 Active Problem 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) Problem Allergic rhinitis, seasonal J30.2 Active Problem Intramural leiomyoma of uterus D25.1 Active Problem Splenomegaly R16.1 Active Medications Medication Code Code Instructions Start End Status Dosage System Date Date Calcium + D [facility] [address]79 Active not defined Diflucan [facility] 06075767490 150 MG Orally November Active 1 tablet once a week 2017 Nadolol [facility] 15197858135 40MG Active TAKE ONE TABLET BY MOUTH ONCE DAILY Levothyroxine [facility] 72494720445 112 MCG Orally Active 1 tablet on an Sodium Once a day empty stomach in the morning Meloxicam [facility] 45599537473 15 MG Orally August Active 1 tablet Once a day 2018 Levothyroxine [facility] 38919599695 125 MCG Orally Active TAKE ONE Sodium Once a day TABLET BY MOUTH ONCE DAILY Fosamax [facility] [address]-96 Active not defined Keflex [facility] 78449083253 500 MG Orally Jun 30, Active 1 capsule every 12 hrs 2018 Metformin HCl [facility] 18010127583 500 MG Orally Active 1/2 tablet Twice a day with meals Nadolol [facility] 44837266526 40MG Active TAKE ONE TABLET BY MOUTH ONCE DAILY Arimidex [facility] 73879449476 1 MG Orally Active 1 tablet Once a day Pennsaid [facility] 00861013397 2 % Active 2 applications Transdermal to affected Twice a day area Results No Known Results Summary Purpose eClinicalWorks Submission
--- OUTSIDE RECORDS SUMMARY | 2019-01-12 18:26 | XMS REPORT ---
[...] End Date Status Dosage System Date Cyclobenzaprine [facility] 75299711613 10 MG Orally July Active 1 tablet HCl once a day at 2018 as bedtime needed Results No Known Results Summary Purpose eClinicalWorks Submission
--- OUTSIDE RECORDS SUMMARY | 2019-01-12 18:26 | XMS REPORT ---
[...] Status Dosage System Date Date Metformin HCl [facility] 13756997588 500 MG Orally Active 1/2 tablet Twice a day with meals Calcium + D [facility] 77249-[address]40 Active not defined Arimidex [facility] 17173412460 1 MG Orally Active 1 tablet Once a day Keflex [facility] 27794446784 500 MG Orally Jun 30 Active 1 capsule every 12 hrs 2018 Diflucan [facility] 43679448180 150 MG Orally November Active 1 tablet once a week 2017 Nadolol [facility] 74522538860 40MG Active TAKE ONE TABLET BY MOUTH ONCE DAILY Nadolol [facility] 86978415840 40MG Active TAKE ONE TABLET BY MOUTH ONCE DAILY Levothyroxine [facility] 86018800482 112 MCG Orally Active 1 tablet on an Sodium Once a day empty stomach in the morning Pennsaid [facility] 21862778919 2 % Active 2 applications Transdermal to affected Twice a day area Levothyroxine [facility] 72632301327 125 MCG Orally Active TAKE ONE Sodium Once a day TABLET BY MOUTH ONCE DAILY Fosamax [facility] [address]-71 Active not defined Results No Known Results Summary Purpose eClinicalWorks Submission
--- OUTSIDE RECORDS SUMMARY | 2019-01-12 18:26 | XMS REPORT ---
:1960 Author Organization [facility] Address [address] [place] [address] Dr. Leo [address] [place] [id number] Care Team Providers Name Role Phone Unavailable Unavailable Unavailable Problems This patient has no known problems. Allergies, Adverse Reactions, Alerts This patient has no known allergies or adverse reactions. Medications This patient has no known medications.
--- OUTSIDE RECORDS SUMMARY | 2019-01-12 18:27 | XMS REPORT ---
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 Problem Edema R60.9 Active Problem Chronic depressive person F34.1 Active Problem Vaginal spotting N92.0 Active Problem 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, unspecified laterality Problem Primary osteoarthritis of left knee M17.12 Active Problem Varicose veins of both lower I83.813 Active extremities with pain Problem Hypothyroidism E03.9 Active Problem Hyperglycemia R73.9 Active Problem Pain, joint, knee, left M25.562 Active Problem Fatty liver K76.0 Active Problem Seasonal allergies J30.2 Active Problem Overactive bladder N32.81 Active Problem Esophageal varices determined by I85.00 Active endoscopy Problem Personal history of malignant Z85.3 Active neoplasm of breast Problem Intramural leiomyoma of uterus D25.1 Active Problem Splenomegaly R16.1 Active Problem Obesity E66.9 Active Problem Secondary esophageal varices I85.10 Active without bleeding Problem Colon polyps K63.5 Active Problem Mixed hyperlipidemia E78.2 Active Problem 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
--- OUTSIDE RECORDS SUMMARY | 2019-01-12 18:27 | XMS REPORT ---
:1960 Author Organization eClinicalWorks Care Team Providers Name Role Phone Jose Julio Provider Role Unavailable Allergies, Adverse Reactions, Alerts Substance Reaction Event Type Lisinopril Info Not Available Drug Allergy Problems Problem Type Condition Code Onset Dates Condition Status Assessment Pain, joint, knee, left M25.562 Active Assessment Primary osteoarthritis of left knee M17.12 Active Problem Post-menopausal bleeding N95.0 Active Problem [...] Problem Allergic rhinitis, seasonal J30.2 Active Medications Medication Code Code Instructions Start End Status Dosage System Date Date Risedronate [facility] [address]-21 Active not defined Sodium Arimidex [facility] 78145154220 1 MG Orally Active 1 tablet Once a day Fosamax [facility] [address]-68 Active not defined Calcium + D [facility] [address]8837-[address]28 Active not defined Nadolol [facility] 25346367666 40MG Active TAKE ONE TABLET BY MOUTH ONCE DAILY [facility] 50236450068 2 % Active 2 applications Transdermal to affected Twice a day area Tramadol HCl [facility] 66927871960 50 MG Orally October Active 1 tablet as every 6 hrs 04, 2019 Levothyroxine [facility] 86806040415 125 MCG Orally Active TAKE ONE Sodium Once a day TABLET BY MOUTH ONCE DAILY Nadolol [facility] 51269409663 40MG Active TAKE ONE TABLET BY MOUTH ONCE DAILY Diflucan [facility] 73110270499 150 MG Orally November Active 1 tablet once a week 2017 Metformin HCl [facility] 50577040704 500 MG Orally Active 1/2 tablet Twice a day with meals Levothyroxine [facility] 50464651451 112 MCG Orally Active 1 tablet on an Sodium Once a day empty stomach in the morning [facility] 79975860864 2 % October Active 2 pumps to Transdermal , affected area Twice a day 2018 2018 Keflex [facility] 77906858441 500 MG Orally Jun 30, Active 1 capsule every 12 hrs 2019 Results No Known Results Summary Purpose eClinicalWorks Submission
--- OUTSIDE RECORDS SUMMARY | 2019-01-12 18:27 | XMS REPORT ---
:1960 Author Organization eClinicalWorks Care Team Providers Name Role Phone Garcia Julio Provider Role Unavailable Allergies, Adverse Reactions, Alerts Substance Reaction Event Type Lisinopril Info Not Available Drug Allergy Problems Problem Type Condition Code Onset Dates Condition Status Assessment Primary osteoarthritis of left knee M17.12 [...] Start End Status Dosage System Date Date Penns [facility] 48821460001 2 % Active 2 applications Transdermal to affected Twice a day area Levothyroxine [facility] 82579666164 125 MCG Orally Active TAKE ONE Sodium Once a day TABLET BY MOUTH ONCE DAILY Nadolol [facility] 05012946639 40MG Active TAKE ONE TABLET BY MOUTH ONCE DAILY Levothyroxine [facility] 23783973600 112 MCG Orally Active 1 tablet on an Sodium Once a day empty stomach in the morning Ibuprofen [facility] 07867741202 800 MG Orally Active 1 tablet po Three times a prn day Metformin HCl [facility] 56278114919 500 MG Orally Active 1/2 tablet Twice a day with meals Tramadol HCl [facility] 39302663709 50 MG Orally October Active 1 tablet as every 6 hrs , needed 2018 Keflex [facility] 02658727619 500 MG Orally Jun 30, Active 1 capsule every 12 hrs 2018 Arimidex [facility] 97095502509 1 MG Orally Active 1 tablet Once a day Calcium + D [facility] 66[address] Active not defined Diflucan [facility] 74379111241 150 MG Orally November Active 1 tablet once a week 2017 Nadolol [facility] 80053219799 40MG Active TAKE ONE TABLET BY MOUTH ONCE DAILY Risedronate [facility] [address]-24 Active not defined Sodium Tazarotene [facility] 79863494364 0.1 % October Active apply 1-2 Externally 12, 11, grams twice a day 2018 2018 topically to affected area as needed for psoriasis Pennsaid [facility] 14591051502 2 % October Active 2 pumps to Transdermal , affected area Twice a day 2018 2018 Fosamax [facility] [address]-04 Active not defined Results No Known Results Summary Purpose eClinicalWorks Submission
--- OUTSIDE RECORDS SUMMARY | 2019-01-12 18:27 | XMS REPORT ---
[...] rhinitis, seasonal J30.2 Active Medications Medication Code System Code Instructions Start Date End Date Status Dosage Voltaren [facility] 77166268064 1 % Transdermal November 28, Jan 27, Active 2 grams Twice a day 2018 2018 Results No Known Results Summary Purpose eClinicalWorks Submission
--- OUTSIDE RECORDS SUMMARY | 2019-01-12 18:27 | XMS REPORT ---
[...] Start End Status Dosage System Date Date Nadolol [facility] 05170318972 40MG Active TAKE ONE TABLET BY MOUTH ONCE DAILY Ibuprofen [facility] 56599542464 800 MG Orally November Active 1 tablet po Three times a 02, 01, prn pain day 2018 2018 Risedronate [facility] [address]-08 Active not defined Sodium Tramadol HCl [facility] 66541779239 50 MG Orally October Active 1 tablet as every 6 hrs 04, needed 2019 [facility] 42559465167 2 % Active 2 applications Transdermal to affected Twice a day area Arimidex [facility] 94783273138 1 MG Orally Active 1 tablet Once a day Calcium + D [facility] 63[address]1987 Active not defined Nadolol [facility] 96251180493 40MG Active TAKE ONE TABLET BY MOUTH ONCE DAILY Metformin HCl [facility] 22385863904 500 MG Orally Active 1/2 tablet Twice a day with meals Tazarotene [facility] 61214346138 0.1 % October Active apply 1-2 Externally 12, 11, grams twice a day 2018 2018 topically to affected area as needed for psoriasis [facility] 48961852646 2 % October Active 2 pumps to Transdermal , affected area Twice a day 2018 2018 Keflex [facility] 17541122673 500 MG Orally Jun 30, Active 1 capsule every 12 hrs 2018 Levothyroxine [facility] 19946580312 125 MCG Orally Active TAKE ONE Sodium Once a day TABLET BY MOUTH ONCE DAILY Fosamax [facility] [address]-27 Active not defined Diflucan [facility] 76931946747 150 MG Orally November Active 1 tablet once a week 2017 Levothyroxine [facility] 74740266716 112 MCG Orally Active 1 tablet on an Sodium Once a day empty stomach in the morning Results No Known Results Summary Purpose eClinicalWorks Submission
--- OUTSIDE RECORDS SUMMARY | 2019-01-12 18:27 | XMS REPORT ---
[...] Start End Date Status Dosage System Date Tazarotene [facility] 86703447172 0.1 % Externally October 22, Dec 21, Active apply 1-2 twice a day 2018 2018 grams topically to affected area as needed for psoriasis Results No Known Results Summary Purpose eClinicalWorks Submission
--- OUTSIDE RECORDS SUMMARY | 2019-01-12 18:27 | XMS REPORT ---
[...] Start End Date Status Dosage System Date [facility] 21251222804 2 % Transdermal October 17, Jan 11, Active 2 pumps to Twice a day 2018 2018 affected area Results No Known Results Summary Purpose eClinicalWorks Submission
--- OUTSIDE RECORDS SUMMARY | 2019-01-12 18:27 | XMS REPORT ---
[...] Start End Status Dosage System Date Date Tazarotene [facility] 35765181906 0.1 % October Active apply 1-2 Externally 12, 11, grams twice a day 2018 2018 topically to affected area as needed for psoriasis Keflex [facility] 38881216263 500 MG Orally Jun 30, Active 1 capsule every 12 hrs 2018 Nadolol [facility] 32895606133 40MG Active TAKE ONE TABLET BY MOUTH ONCE DAILY Fosamax [facility] [address]-62 Active not defined Tramadol HCl [facility] 02572093666 50 MG Orally October Active 1 tablet as every 6 hrs 04, needed 2018 Nadolol [facility] 75969435097 40MG Active TAKE ONE TABLET BY MOUTH ONCE DAILY [facility] 97513885732 2 % October Active 2 pumps to Transdermal , affected area Twice a day 2018 2018 [facility] 94433297353 2 % Active 2 applications Transdermal to affected Twice a day area Calcium + D [facility] [address]72 Active not defined Diflucan [facility] 52564576881 150 MG Orally November Active 1 tablet once a week 2017 Levothyroxine [facility] 92291444952 125 MCG Orally Active TAKE ONE Sodium Once a day TABLET BY MOUTH ONCE DAILY Risedronate [facility] [address]-63 Active not defined Sodium Metformin HCl [facility] 49597790958 500 MG Orally Active 1/2 tablet Twice a day with meals Levothyroxine [facility] 56411396215 112 MCG Orally Active 1 tablet on an Sodium Once a day empty stomach in the morning Arimidex [facility] 77767877782 1 MG Orally Active 1 tablet Once a day Results No Known Results Summary Purpose eClinicalWorks Submission
--- OUTSIDE RECORDS SUMMARY | 2019-01-12 18:27 | XMS REPORT ---
:1960 Author Organization eClinicalWorks Care Team Providers Name Role Phone Julio Garcia Provider Role Unavailable Allergies No Known Allergies [...]
[2019-01-12] MEDS ORDERED: MECLIZINE HCL 12.5 MG TAB ONE (20:11)
[2019-01-12] MEDS ORDERED: DIAZEPAM 10 MG/2 ML INJ SYRINGE ONE (20:12)
--- NOTE | 2019-01-12 20:12 | RAD REPORT ---
EXAM DESCRIPTION: CT - Head Brain Wo Cont - 01/12/2019 8:03 pm CLINICAL HISTORY: Dizziness, nausea, history of breast cancer and hypertension COMPARISON: None. TECHNIQUE: Axial 5 mm thick images of the head were obtained without IV contrast. All CT scans are performed using dose optimization technique as appropriate and may include automated exposure control or mA/KV adjustment according to patient size. FINDINGS: No intracranial hemorrhage, mass, edema or shift of mid-line structures. No acute infarcti on changes seen. No abnormal extra-axial fluid collections. Ventricles are normal. Mastoid air cells and visualized portions of the paranasal sinuses are clear. No acute bony findings. IMPRESSION: Negative non-contrast CT head examination.
[2019-01-12 20:14] LABS: Absolute Lymphocytes (CBC) 1.2 K/uL (0.7-4.9); Basophils % 0.6 % (0-1.3); Hematocrit 31.1 % (36.0-45.0); Lymphocytes % 25.9 % (15.3-44.8); MPV 8.8 fL (7.6-11.3); RBC Red Blood Cell Count 4.47 M/uL (3.86-4.86)
[2019-01-12 20:33] LABS: Potassium 4.1 mmol/L (3.5-5.1)
[2019-01-12 20:36] LABS: Anisocytosis SLIGHT; Blood Morphology Comment NOTED (NOT SEEN); Elliptocytes 1+; Hypochromasia 1+; Platelet Estimate ADEQ; Polychromasia SLIGHT; Urine White Blood Cell Casts OK
--- NOTE | 2019-01-12 21:57 | ER ---
Nurse's Notes [facility] Angela Name: Adry De Guzman Age: 58 yrs Sex: Female : 1960 Arrival Date: 01/12/2019 Time: 18:26 Bed 25 [facility] MD: Diagnosis: Vertigo Presentation: 01/12 18:27 Presenting complaint: Patient states: dizziness started this morning when she woke up sv at 0700. c/o nausea. Transition of care: patient was not received from another setting of care. Onset of symptoms was January 12, 2019 at 07:00. Risk Assessment: Do you want to hurt yourself or someone else? Patient reports no desire to harm self or others. Care prior to arrival: Medication(s) given: meclizine taken at 1300. 18:27 Method Of Arrival: Wheelchair sv 18:27 Acuity: JULEE 3 sv 19:24 Initial Sepsis Screen: Does the patient meet any 2 criteria? No. Patient's initial sepsis screen is negative. Does the patient have a suspected source of infection? No. Patient's initial sepsis screen is negative. Triage Assessment: 18:27 General: Appears in no apparent distress. comfortable, Behavior is calm, cooperative, sv appropriate for age. Pain: Denies pain. Neuro: Level of Consciousness is awake, alert, obeys commands, Oriented to person, place, time, situation, Moves all extremities. Full function Speech is normal, Facial symmetry appears normal. Neuro: Reports dizziness, since 0700 when waking up. Respiratory: Respiratory effort is even, unlabored, Respiratory pattern is regular, symmetrical. GI: Reports nausea. Historical: - Allergies: 18:29 Lisinopril; sv - Home Meds: 19:33 nadolol 40 mg Oral tab 1 tab once daily [Active]; metformin 250 Oral Tb24 2 times per day [Active]; levothyroxine 112 mcg oral tab 1 tab once daily [Active]; Fosamax Oral [Active]; - PMHx: 18:29 BREAST CA; Diabetes - NIDDM; Hypertension; Hypothyroidism; liver fibrosis; Osteoporosis;sv - PSHx: 18:29 Lumpectomy; Cholecystectomy; sv - Immunization history:: Adult Immunizations up to date. - Social history:: Smoking status: Patient/guardian denies using tobacco. - Ebola Screening: : Patient negative for fever greater than or equal to 101.5 degrees Fahrenheit, and additional compatible Ebola Virus Disease symptoms Patient denies exposure to infectious person. Screenin:23 Abuse screen: Denies threats or abuse. Denies injuries from another. Nutritional wh screening: No deficits noted. Tuberculosis screening: No symptoms or risk factors identified. Fall Risk None identified. Assessment: 19:33 General: Appears in no apparent distress. Behavior is calm, cooperative, appropriate wh for age. Pain: Denies pain. Neuro: Level of Consciousness is awake, alert, obeys commands, Oriented to person, place, time, situation, Appropriate for age Manager Photography are equal bilaterally Reports dizziness, since this morning. Neuro: Moves all extremities. Cardiovascular: Heart tones S1 S2. Respiratory: Airway is patent Respiratory effort is even, unlabored, Respiratory pattern is regular, symmetrical. GI: Abdomen is flat, non-distended. : No signs and/or symptoms were reported regarding the genitourinary system. EENT: No signs and/or symptoms were reported regarding the EENT system. Derm: Skin is intact, is healthy with good turgor, Skin is pink, warm \T\ dry. normal. Musculoskeletal: Range of motion: intact in all extremities. 20:30 Reassessment: Patient appears in no apparent distress at this time. No changes from previously documented assessment. Patient and/or family updated on plan of care and expected duration. Pain level reassessed. Patient is alert, oriented x 3, equal unlabored respirations, skin warm/dry/pink. 21:45 Reassessment: Patient appears in no apparent distress at this time. No changes from previously documented assessment. Patient and/or family updated on plan of care and expected duration. Pain level reassessed. Patient is alert, oriented x 3, equal unlabored respirations, skin warm/dry/pink. Patient states feeling better. Patient states symptoms have improved. 22:28 Reassessment: Patient appears in no apparent distress at this time. No changes from previously documented assessment. Patient and/or family updated on plan of care and expected duration. Pain level reassessed. Patient is alert, oriented x 3, equal unlabored respirations, skin warm/dry/pink. Patient states feeling better. Patient states symptoms have improved. Vital Signs: 18:29 BP 112 / 65; Pulse 69; Resp 18; Temp 97.9; Pulse Ox 99% ; Weight 115.67 kg; Height 5 sv ft. 5 in. (165.10 cm); 19:15 BP 142 / 55; Pulse 72; Resp 18; Temp 97.6; Pulse Ox 99% on R/A; wh 18:29 Body Mass Index 42.44 (115.67 kg, 165.10 cm) ED Course: 18:26 Patient arrived in ED. as 18:28 Triage completed. 18:29 Arm band placed on. 19:09 Cristino Qureshi PA is PHCP. [facility] 19:09 Brody Hardy MD is Attending Physician. jr 19:11 Kerry Antonio is Primary Nurse. 19:24 Patient has correct armband on for positive identification. Bed in low position. Call light in reach. Side rails up X 1. Pulse ox on. NIBP on. 19:50 Inserted saline lock: 22 gauge in right antecubital area, using aseptic technique. Blood collected. 20:03 CT Head Brain wo Cont In Process Unspecified. EDNY 22:31 No provider procedures requiring assistance completed. IV discontinued, intact, bleeding controlled, No redness/swelling at site. Administered Medications: 20:21 Drug: Valium 2 mg {Note: RASS 0.} Route: IVP; Site: right antecubital; 22:30 Follow up: Response: No adverse reaction; RASS: Alert and Calm (0) 20:22 Drug: Meclizine 25 mg Route: PO; 22:31 Follow up: Response: No adverse reaction Outcome: 21:56 Discharge ordered by . [facility] 22:32 Discharged to home ambulatory, with family. 22:32 Condition: good 22:32 Discharge instructions given to patient, family, Instructed on discharge instructions, follow up and referral plans. medication usage, POC Vertigo Demonstrated understanding of instructions, follow-up care, medications, POC Prescriptions given X 2. 22:32 Patient left the ED. Signatures: Dispatcher [employer] EDNY Danuta Mc RN RN sv Martinez, Amelia as Cristino Qureshi PA PA [facility] Kerry Antonio Corrections: (The following items were deleted from the chart) 18:29 18:27 Care prior to arrival: None. [facility] 18:29 18:29 Pulse 69bpm; Resp 18bpm; Pulse Ox 99%; Temp 97.9F; 115.67 kg; Height 5 ft. 5 in.; sv BMI: 42.4; sv
--- NOTE | 2019-01-12 21:58 | EDPHYS ---
Physician Documentation [facility] Angela Name: Adry De Guzman Age: 58 yrs Sex: Female : 1960 Arrival Date: 01/12/2019 Time: 18:26 Bed 25 Private MD: ED Physician Brody Hardy HPI: 01/12 20:02 This 58 yrs old Female presents to ER via Wheelchair with complaints of jr8 Dizziness. 20:02 The patient presents with dizziness, sense of spinning. Onset: The symptoms/episode jr8 began/occurred acutely, today. Context: occurred at home, occurred while the patient was at rest. Modifying factors: The symptoms are alleviated by Antivert, holding head still, the symptoms are aggravated by movement of head, standing up. Associated signs and symptoms: Pertinent positives: nausea, vomiting. Severity of symptoms: At their worst the symptoms were moderate in the emergency department the symptoms are unchanged. Patient's baseline: Neuro: alert and fully oriented, Motor: no deficits, Ambulation: walks without assistance, Speech: normal. The patient has not experienced similar symptoms in the past. The patient has not recently seen a physician. Patient stated that she turned over in bed and had sudden onset of dizziness and vomiting. Had taken some meclizine which helped but then came back and now is constant. Historical: - Allergies: 18:29 Lisinopril; sv - Home Meds: 19:33 nadolol 40 mg Oral tab 1 tab once daily [Active]; metformin 250 Oral Tb24 2 times per wh day [Active]; levothyroxine 112 mcg oral tab 1 tab once daily [Active]; Fosamax Oral [Active]; - PMHx: 18:29 BREAST CA; Diabetes - NIDDM; Hypertension; Hypothyroidism; liver fibrosis; Osteoporosis;sv - PSHx: 18:29 Lumpectomy; Cholecystectomy; sv - Immunization history:: Adult Immunizations up to date. - Social history:: Smoking status: Patient/guardian denies using tobacco. - Ebola Screening: : Patient negative for fever greater than or equal to 101.5 degrees Fahrenheit, and additional compatible Ebola Virus Disease symptoms Patient denies exposure to infectious person. ROS: 20:02 Eyes: Negative for injury, pain, redness, and discharge, ENT: Negative for injury, jr8 pain, and discharge, Neck: Negative for injury, pain, and swelling, Cardiovascular: Negative for chest pain, palpitations, and edema, Respiratory: Negative for shortness of breath, cough, wheezing, and pleuritic chest pain, Back: Negative for injury and pain, MS/Extremity: Negative for injury and deformity, Skin: Negative for injury, rash, and discoloration. 20:02 Abdomen/GI: Positive for nausea and vomiting, Negative for abdominal pain, diarrhea, constipation, abdominal cramps, abdominal distension. 20:02 Neuro: Positive for dizziness, Negative for altered mental status, headache, hearing loss, loss of consciousness, numbness, seizure activity, speech changes, syncope, near syncope, tingling, tinnitus, tremor, visual changes, weakness. Exam: 20:02 Eyes: Pupils equal round and reactive to light, extra-ocular motions intact. Lids and jr8 lashes normal. Conjunctiva and sclera are non-icteric and not injected. Cornea within normal limits. Periorbital areas with no swelling, redness, or edema. ENT: Nares patent. No nasal discharge, no septal abnormalities noted. Tympanic membranes are normal and external auditory canals are clear. Oropharynx with no redness, swelling, or masses, exudates, or evidence of obstruction, uvula midline. Mucous membranes moist. Neck: Trachea midline, no thyromegaly or masses palpated, and no cervical lymphadenopathy. Supple, full range of motion without nuchal rigidity, or vertebral point tenderness. No Meningismus. Cardiovascular: Regular rate and rhythm with a normal S1 and S2. No gallops, murmurs, or rubs. Normal PMI, no JVD. No pulse deficits. Respiratory: Lungs have equal breath sounds bilaterally, clear to auscultation and percussion. No rales, rhonchi or wheezes noted. No increased work of breathing, no retractions or nasal flaring. Abdomen/GI: Soft, non-tender, with normal bowel sounds. No distension or tympany. No guarding or rebound. No evidence of tenderness throughout. Back: No spinal tenderness. No costovertebral tenderness. Full range of motion. Skin: Warm, dry with normal turgor. Normal color with no rashes, no lesions, and no evidence of cellulitis. MS/ Extremity: Pulses equal, no cyanosis. Neurovascular intact. Full, normal range of motion. Neuro: Awake and alert, GCS 15, oriented to person, place, time, and situation. Cranial nerves II-XII grossly intact. Motor strength 5/5 in all extremities. Sensory grossly intact. Cerebellar exam normal. Vital Signs: 18:29 BP 112 / 65; Pulse 69; Resp 18; Temp 97.9; Pulse Ox 99% ; Weight 115.67 kg; Height 5 sv ft. 5 in. (165.10 cm); 19:15 BP 142 / 55; Pulse 72; Resp 18; Temp 97.6; Pulse Ox 99% on R/A; wh 18:29 Body Mass Index 42.44 (115.67 kg, 165.10 cm) sv MDM: 19:14 Patient medically screened. jr8 21:56 Data reviewed: vital signs, nurses notes, lab test result(s), radiologic studies, CT jr8 scan, and as a result, I will discharge patient. Data interpreted: Pulse oximetry: on room air is 99 %. Interpretation: normal. Counseling: I had a detailed discussion with the patient and/or guardian regarding: the historical points, exam findings, and any diagnostic results supporting the discharge/admit diagnosis, lab results, radiology results, the need for outpatient follow up, a family practitioner, to return to the emergency department if symptoms worsen or persist or if there are any questions or concerns that arise at home. Response to treatment: the patient's symptoms have markedly improved after treatment. 01/12 19:47 Order name: CBC with Diff; Complete Time: 21:56 8 01/12 19:47 Order name: BMP; Complete Time: 21:56 8 01/12 19:48 Order name: CT Head Brain wo Cont; Complete Time: 21:56 8 01/12 20:16 Order name: CBC Smear Scan; Complete Time: 21:56 EDIA 01/12 19:47 Order name: IV; Complete Time: 20:04 [facility] Administered Medications: 20:21 Drug: Valium 2 mg {Note: RASS 0.} Route: IVP; Site: right antecubital; 22:30 Follow up: Response: No adverse reaction; RASS: Alert and Calm (0) 20:22 Drug: Meclizine 25 mg Route: PO; 22:31 Follow up: Response: No adverse reaction Disposition: 01/13 06:31 Co-signature as Attending Physician, Brody Hardy MD. pkl Disposition: 01/12/19 21:56 Discharged to Home. Impression: Vertigo . - Condition is Stable. - Discharge Instructions: Vertigo. - Prescriptions for Meclizine 25 mg Oral Tablet - take 1 tablet by ORAL route every 8 hours As needed; 30 tablet. Valium 2 mg Oral Tablet - take 1 tablet by ORAL route every 8 hours As needed; 20 tablet. Zofran 4 mg Oral Tablet - take 1 tablet by ORAL route every 12 hours As needed; 20 tablet. - Medication Reconciliation Form, Thank You Letter, Antibiotic Education, Prescription Opioid Use form. - Follow up: Private Physician; When: 2 - 3 days; Reason: Recheck today's complaints, Continuance of care, Re-evaluation by your physician. - Problem is new. - Symptoms have improved. Signatures: Dispatcher [employer] EDDanuta Almeida RN RN Brody Dorado MD MD pkl Roszak, Josh, PA PA jr8 Kerry Antonio Corrections: (The following items were deleted from the chart) 01/12 22:32 21:56 01/12/2019 21:56 Discharged to Home. Impression: Vertigo . Condition is Stable. wh Forms are Medication Reconciliation Form, Thank You Letter, Antibiotic Education, Prescription Opioid Use. Follow up: Private Physician; When: 2 - 3 days; Reason: Recheck today's complaints, Continuance of care, Re-evaluation by your physician. Problem is new. Symptoms have improved. jr8
[2019-01-12 23:16] VITALS: O2SAT 99
[2019-01-12 23:17] VITALS: BP 142/55; TEMP 97.6
== END 2019-01-12 22:32 | disposition home or self-care (01) ==
LOC: ER 18:24
DX: R42 Dizziness and giddiness (principal); R11.2 Nausea with vomiting, unspecified; I10 Essential (primary) hypertension; E11.9 Type 2 diabetes mellitus without complications; E03.9 Hypothyroidism, unspecified
CPT/HCPCS: 85025; 80048; 36415; 70450; 96374; 99284; J3360

== ENCOUNTER 2019-03-24 07:11 | Day surgery (SDC) | payer OTHER ==
--- OUTSIDE RECORDS SUMMARY | 2019-03-24 07:13 | XMS REPORT ---
:1960 [facility] Address [address] [place] [address] Dr. Leo [address] [place] [id number] Care Team Providers Name Role Phone Unavailable Unavailable Unavailable Problems This patient has no known problems. Allergies, Adverse Reactions, Alerts This patient has no known allergies or adverse reactions. Medications This patient has no known medications.
--- OUTSIDE RECORDS SUMMARY | 2019-03-24 07:14 | XMS REPORT ---
:1960 Author Organization [employer] Care Team Providers Name Role Phone Murillo, Na Provider Role Unavailable Allergies, Adverse Reactions, Alerts Substance Reaction Event Type Lisinopril Info Not Available Drug Allergy Problems Problem Type Condition Code Onset Dates Condition Status Problem Post-menopausal bleeding N95.0 Active Problem Gastroesophageal reflux disease K21.9 Active Problem Breast cancer C50.919 Active Problem Thrombocytopenia D69.6 Active Problem HTN (hypertension) I10 Active Problem Edema R60.9 Active Problem Fatty liver K76.0 Active Problem Hyperglycemia R73.9 Active Problem Hypothyroidism E03.9 Active Problem Overactive bladder N32.81 Active Problem Seasonal allergies J30.2 Active Problem Obesity E66.9 Active Problem Personal history of malignant Z85.3 Active neoplasm of breast Problem Varicose veins of both lower I83.813 Active extremities with pain Problem Esophageal varices determined by I85.00 Active endoscopy Problem Prediabetes R73.03 Active Problem Liver fibrosis K74.0 Active Problem Splenomegaly R16.1 Active Problem Intramural leiomyoma of uterus D25.1 Active Assessment Seasonal allergies J30.2 Active Problem Iron deficiency anemia, unspecified D50.9 Active iron deficiency anemia type Problem Secondary esophageal varices I85.10 Active without bleeding Assessment Esophageal varices determined by I85.00 Active endoscopy Problem Primary osteoarthritis of left knee M17.12 Active Assessment Liver fibrosis K74.0 Active Problem Pain, joint, knee, left M25.562 Active Assessment 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 Problem Cutaneous abscess, unspecified site L02.91 Active Assessment Influenza vaccination declined by Z28.21 Active patient Problem Benign paroxysmal positional H81.13 Active vertigo, bilateral Assessment Iron deficiency anemia, unspecified D50.9 Active iron deficiency anemia type Problem Mixed hyperlipidemia E78.2 Active Assessment Benign paroxysmal positional H81.13 Active vertigo, bilateral Problem Other osteoporosis M81.8 Active Assessment Prediabetes R73.03 Active Problem 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) Assessment Cutaneous abscess, unspecified site L02.91 Active Problem Colon polyps K63.5 Active Assessment Hypothyroidism E03.9 Active Problem 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 Assessment HTN (hypertension) I10 Active Problem Vaginal spotting N92.0 Active Problem Chronic depressive person F34.1 Active Problem 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, unspecified laterality Medications Medication Code Code Instructions Start End Status Dosage System Date Date Meclizine HCl [facility] 86683549852 25 MG Orally Active 1 tablet as twice a day needed Metformin HCl [facility] 13328077601 500 MG Orally Active 1/2 tablet Twice a day with meals Levothyroxine [facility] 04630506892 112 MCG Active TAKE 1 TABLET Sodium BY MOUTH DAILY 1 HOUR BEFORE BREAKFAST Arimidex [facility] 14433422108 1 MG Orally Active 1 tablet Once a day Nadolol [facility] 72030154837 40MG Active TAKE ONE TABLET BY MOUTH ONCE DAILY Ibuprofen [facility] 15978766686 800 MG Orally Active 1 tablet po Three times a prn pain day Keflex [facility] 25204417388 500 MG Orally Jun 30, Active 1 capsule every 12 hrs 2018 Diflucan [facility] 80882645870 150 MG Orally November Active 1 tablet once a week 2017 Nadolol [facility] 29006085824 40MG Active TAKE ONE TABLET BY MOUTH ONCE DAILY Levothyroxine [facility] 46176315145 112 MCG Orally Active 1 tablet on an Sodium Once a day empty stomach in the morning Tramadol HCl [facility] 86633746428 50 MG Orally October Active 1 tablet as every 6 hrs , 2018 Risedronate [facility] [address]-41 Active not defined Sodium Pennsaid [facility] 89675225304 2 % Active 2 applications Transdermal to affected Twice a day area Levothyroxine [facility] 97788020995 125 MCG Orally Active TAKE ONE Sodium Once a day TABLET BY MOUTH ONCE DAILY Fosamax [facility] [address]-49 Active not defined Calcium + D [facility] [address] Active not defined Results No Known Results Summary Purpose [employer]Works Submission
[2019-03-24] MEDS ORDERED: NA CHLORIDE 0.9% 1,000 ML ONE (07:58)
[2019-03-24] MEDS ORDERED: PROPOFOL 200 MG/20 ML VIAL IV ONE ×2 (09:52→10:21)
[2019-03-24] MEDS ORDERED: LIDOCAINE 1% MPF 5 ML VIAL ONE (09:53)
--- NOTE | 2019-03-24 10:18 | ENDO RPT ---
[address], [address] EGD PROCEDURE REPORT EXAM DATE: 03/24/2019 PATIENT NAME: Adry De Guzman MR#: [id number] BIRTHDATE: 1960 ATTENDING: Shailesh Lazcano Dr STATUS: outpatient ANALYTICAL DATA MINER: Marion Smith RN and Marlen Davis RN INDICATIONS: The patient is a 58 yr old Female here for an EGD due to surveillance PROCEDURE PERFORMED: EGD with banding MEDICATIONS: Per Anesthesia. TOPICAL ANESTHETIC: none CONSENT: The patient understands the risks and benefits of the procedure and understands that these risks include, but are not limited to: sedation, allergic reaction, infection, perforation and/or bleeding. Alternative means of evaluation and treatment include, among others: physical exam, x-rays, and/or surgical intervention. The patient elects to proceed with this endoscopic procedure. DESCRIPTION OF PROCEDURE: During intra-op preparation period all mechanical medical equipment was checked for proper function. Hand hygiene and appropriate measures for infection prevention was taken. Procedure, possible complications, and alternatives including but not limited to the possibility of bleeding, perforation, tear, infection, sepsis, need for surgery, need for blood transfusion, and anesthesia related complications were explained to the patient. After the risks, benefits and alternatives of the procedure were thoroughly explained, Informed consent was verified, confirmed and timeout was successfully executed by the treatment team. The patient was placed in the left lateral position. The patient was anesthetized with topical anesthesia. Through the anesthetized oropharyngeal area, the scope was passed without any difficulty. The [id number] ([id number]) endoscope was introduced through the mouth and advanced to the second portion of the duodenum. Retroflexed views revealed no abnormalities. The gastroscope was then slowly withdrawn and removed. Two columns of grade II varices were found in the lower esophagus. Esophageal banding was performed X3. A few 2-4 mm sessile polyps were found in the body of the stomach. Mild gastritis was found in the antrum. ADVERSE EVENTS: There were no complications. IMPRESSIONS: 1. Two columns of grade II varices in the lower esophagus, s/p banding X3 2. Few 2-4 mm sessile polyps in the body of the stomach 3. Mild gastritis in the antrum RECOMMENDATIONS: continue Nadolol REPEAT EXAM: Return in 8 week(s) for EGD. Shailesh Lazcano Dr eSigned: Shailesh Lazcano Dr 03/24/2019 10:17 AM cc: Melinda Murillo M.D. CPT CODES: ICD9 CODES: PATIENT NAME: Adry De Guzman MR#: [id number]
[2019-03-24 13:42] VITALS: BP 152/51; TEMP 97.3; O2SAT 97
== END 2019-03-24 10:59 | disposition home or self-care (01) ==
LOC: OR 07:11
PROVIDERS: ATTEND Internal Medicine Gastroenterology
PROC: 06L38CZ Occlusion of Esophageal Vein with Extraluminal Device, Via Natural or Artificial Opening Endoscopic (ICD-10-PCS; principal; 2019-03-24 09:45)
DX: I85.00 Esophageal varices without bleeding (principal); K29.70 Gastritis, unspecified, without bleeding; K31.7 Polyp of stomach and duodenum; K74.0 Hepatic fibrosis; E03.9 Hypothyroidism, unspecified; I10 Essential (primary) hypertension; M81.0 Age-related osteoporosis without current pathological fracture; E66.01 Morbid (severe) obesity due to excess calories; Z85.3 Personal history of malignant neoplasm of breast; Z87.891 Personal history of nicotine dependence; Z88.8 Allergy status to other drugs, medicaments and biological substances; Z90.49 Acquired absence of other specified parts of digestive tract; Z83.71 Family history of colonic polyps; Z82.49 Family history of ischemic heart disease and other diseases of the circulatory system
CPT/HCPCS: 82947; 43244; J2704 ×2; J7030

== ENCOUNTER 2019-06-23 06:48 | Day surgery (SDC) | payer OTHER ==
--- OUTSIDE RECORDS SUMMARY | 2019-06-23 06:51 | XMS REPORT ---
:1960 [facility] Address [address] [place] [address] Dr. Leo [address] [place] [address] Care Team Providers Name Role Phone Unavailable Unavailable Unavailable Problems This patient has no known problems. Allergies, Adverse Reactions, Alerts This patient has no known allergies or adverse reactions. Medications This patient has no known medications.
--- OUTSIDE RECORDS SUMMARY | 2019-06-23 06:52 | XMS REPORT ---
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
--- OUTSIDE RECORDS SUMMARY | 2019-06-23 06:52 | XMS REPORT ---
[...] Status Dosage System Date Date Meclizine HCl [facility] 99343970025 25 MG Orally Active 1 tablet as twice a day needed Metformin HCl [facility] 51232951957 500 MG Orally Active 1/2 tablet Twice a day with meals Levothyroxine [facility] 56174152570 112 MCG Active TAKE 1 TABLET Sodium BY MOUTH DAILY 1 HOUR BEFORE BREAKFAST Arimidex [facility] 90684637768 1 MG Orally Active 1 tablet Once a day Nadolol [facility] 49635376345 40MG Active TAKE ONE TABLET BY MOUTH ONCE DAILY Ibuprofen [facility] 07074221897 800 MG Orally Active 1 tablet po Three times a prn pain day Keflex [facility] 67008506580 500 MG Orally Jun 30, Active 1 capsule every 12 hrs 2018 Diflucan [facility] 80638873082 150 MG Orally November Active 1 tablet once a week 2017 Nadolol [facility] 93513084969 40MG Active TAKE ONE TABLET BY MOUTH ONCE DAILY Levothyroxine [facility] 92122606576 112 MCG Orally Active 1 tablet on an Sodium Once a day empty stomach in the morning Tramadol HCl [facility] 85775811557 50 MG Orally October Active 1 tablet as every 6 hrs , 2018 Risedronate [facility] [address]-30 Active not defined Sodium Pennsaid [facility] 05599017485 2 % Active 2 applications Transdermal to affected Twice a day area Levothyroxine [facility] 34104875111 125 MCG Orally Active TAKE ONE Sodium Once a day TABLET BY MOUTH ONCE DAILY Fosamax [facility] [address]-95 Active not defined Calcium + D [facility] [address] Active not defined Results No Known Results Summary Purpose eClinicalWorks Submission
--- OUTSIDE RECORDS SUMMARY | 2019-06-23 06:52 | XMS REPORT ---
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
[2019-06-23] MEDS ORDERED: NA CHLORIDE 0.9% 1,000 ML ONE (07:11)
[2019-06-23 07:45] VITALS: TEMP 97.8
[2019-06-23] MEDS ORDERED: propofoL 200 MG/20 ML VIAL IV ONE ×2 (08:33→08:39)
[2019-06-23] MEDS ORDERED: LIDOCAINE 1% MPF 2 ML AMPULE ONE (08:34)
[2019-06-23] MEDS ORDERED: MIDAZOLAM HCL 2 MG/2 ML INJ ONE (08:39)
[2019-06-23] MEDS ORDERED: FENTANYL CITR 100 MCG/2 ML ONE (08:39)
--- NOTE | 2019-06-23 09:12 | ENDO RPT ---
[address], [address] EGD PROCEDURE REPORT EXAM DATE: 06/23/2019 PATIENT NAME: Adry De Guzman MR#: [id number] BIRTHDATE: 1960 ATTENDING: Shailesh Lazcano Dr STATUS: outpatient ASSET PROTECTION SPECIALIST: Suki Curtis RN and Richmond Askew CST INDICATIONS: The patient is a 59 yr old Female here for an EGD due to bleeding varices PROCEDURE PERFORMED: EGD with banding MEDICATIONS: Per Anesthesia. TOPICAL ANESTHETIC: none CONSENT: The patient understands the risks and benefits of the procedure and understands that these risks include, but are not limited to: sedation, allergic reaction, infection, perforation and/or bleeding. Alternative means of evaluation and treatment include, among others: physical exam, x-rays, and/or surgical intervention. The patient elects to proceed with this endoscopic procedure. DESCRIPTION OF PROCEDURE: During intra-op preparation period all mechanical medical equipment was checked for proper function. Hand hygiene and appropriate measures for infection prevention was taken. Procedure, possible complications, and alternatives including but not limited to the possibility of bleeding, perforation, tear, infection, sepsis, need for surgery, need for blood transfusion, and anesthesia related complications were explained to the patient. After the risks, benefits and alternatives of the procedure were thoroughly explained, Informed consent was verified, confirmed and timeout was successfully executed by the treatment team. The patient was placed in the left lateral position. The patient was anesthetized with topical anesthesia. Through the anesthetized oropharyngeal area, the scope was passed without any difficulty. The Pentax EG-[id number] ([id number]) endoscope was introduced through the mouth and advanced to the second portion of the duodenum. Retroflexed views revealed no abnormalities. The gastroscope was then slowly withdrawn and removed. Grade II varices were found in the lower esophagus. Esophageal banding was performed. Moderate gastritis was found in the body and the antrum of the stomach. A sessile polyp was found in the body of the stomach. ADVERSE EVENTS: There were no complications. IMPRESSIONS: 1. Two columns of grade II varices in the lower esophagus, s/p banding X3 2. Moderate gastritis in the body and the antrum of the stomach 3. Few 3-6 mm inflammatory appearing sessile polyps in the body of the stomach RECOMMENDATIONS: acid suppression therapy REPEAT EXAM: Return in 4 week(s) for EGD with possible banding(s). Shailesh Lazcano Dr eSigned: Shailesh Lazcano Dr 06/23/2019 9:11 AM cc: CPT CODES: ICD9 CODES: PATIENT NAME: Adry De Guzman MR#: [id number]
--- NOTE | 2019-06-23 09:17 | ENDO RPT ---
[address], [address] EGD PROCEDURE REPORT EXAM DATE: 06/23/2019 PATIENT NAME: Adry De Guzman MR#: [id number] BIRTHDATE: 1960 ATTENDING: Shailesh Lazcano Dr STATUS: outpatient STRAND FORMING MACHINE OPERATOR: Suki Curtis RN and Richmond Askew CST INDICATIONS: The patient is a 59 yr old Female here for an EGD due to surveillance of esophageal varices PROCEDURE PERFORMED: EGD with banding MEDICATIONS: Per Anesthesia. TOPICAL ANESTHETIC: none CONSENT: The patient understands the risks and benefits of the procedure and understands that these risks include, but are not limited to: sedation, allergic reaction, infection, perforation and/or bleeding. Alternative means of evaluation and treatment include, among others: physical exam, x-rays, and/or surgical intervention. The patient elects to proceed with this endoscopic procedure. DESCRIPTION OF PROCEDURE: During intra-op preparation period all mechanical medical equipment was checked for proper function. Hand hygiene and appropriate measures for infection prevention was taken. Procedure, possible complications, and alternatives including but not limited to the possibility of bleeding, perforation, tear, infection, sepsis, need for surgery, need for blood transfusion, and anesthesia related complications were explained to the patient. After the risks, benefits and alternatives of the procedure were thoroughly explained, Informed consent was verified, confirmed and timeout was successfully executed by the treatment team. The patient was placed in the left lateral position. The patient was anesthetized with topical anesthesia. Through the anesthetized oropharyngeal area, the scope was passed without any difficulty. The Pentax EG-[id number] ([id number]) endoscope was introduced through the mouth and advanced to the second portion of the duodenum. Retroflexed views revealed no abnormalities. The gastroscope was then slowly withdrawn and removed. Two columns of grade II varices were found in the lower esophagus. Esophageal bandings X 3 were performed. Moderate gastritis was found in the body and the antrum of the stomach. Few 3-6 mm inflammatory appearing sessile polyp was found in the body of the stomach. ADVERSE EVENTS: There were no complications. IMPRESSIONS: 1. Two columns of grade II varices in the lower esophagus, s/p banding X3 2. Moderate gastritis in the body < the antrum of the stomach 3. Few 3-6 mm inflammatory appearing sessile polyps in the body of the stomach RECOMMENDATIONS: acid suppression therapy REPEAT EXAM: Return in 4 week(s) for EGD with possible banding(s). Shailesh Lazcano Dr eSigned: Shailesh Lazcano Dr 06/23/2019 9:17 AM Revised: 06/23/2019 9:17 AM cc: CPT CODES: ICD9 CODES: PATIENT NAME: Adry De Guzman MR#: [id number]
[2019-06-23 09:33] VITALS: BP 157/70; O2SAT 98
== END 2019-06-23 09:38 | disposition home or self-care (01) ==
LOC: OR 06:48
PROVIDERS: ATTEND Internal Medicine Gastroenterology
PROC: 0W3P8ZZ Control Bleeding in Gastrointestinal Tract, Via Natural or Artificial Opening Endoscopic (ICD-10-PCS; principal; 2019-06-23 08:00)
DX: I85.01 Esophageal varices with bleeding (principal); K31.7 Polyp of stomach and duodenum; K29.70 Gastritis, unspecified, without bleeding; E11.9 Type 2 diabetes mellitus without complications; I10 Essential (primary) hypertension; E03.9 Hypothyroidism, unspecified; M81.0 Age-related osteoporosis without current pathological fracture; Z87.11 Personal history of peptic ulcer disease; Z85.3 Personal history of malignant neoplasm of breast; Z90.49 Acquired absence of other specified parts of digestive tract; Z87.891 Personal history of nicotine dependence; Z83.71 Family history of colonic polyps; Z82.49 Family history of ischemic heart disease and other diseases of the circulatory system
CPT/HCPCS: 43244; 82947; J2704; J2250; J3010; J2001; J7030

== ENCOUNTER 2019-07-23 09:23 | Emergency (ER) | payer OTHER ==
--- OUTSIDE RECORDS SUMMARY | 2019-07-23 09:28 | XMS REPORT ---
:1960 [facility] [address] [place] [address] Dr. Leo [address] [place] [id number] Care Team Providers Name Role Phone Unavailable Unavailable Unavailable Problems This patient has no known problems. Allergies, Adverse Reactions, Alerts This patient has no known allergies or adverse reactions. Medications This patient has no known medications.
--- OUTSIDE RECORDS SUMMARY | 2019-07-23 09:30 | XMS REPORT ---
[...] Status Dosage System Date Date Meclizine HCl [facility] 81818069374 25 MG Orally Active 1 tablet as twice a day needed Metformin HCl [facility] 36486393557 500 MG Orally Active 1/2 tablet Twice a day with meals Levothyroxine [facility] 59389227491 112 MCG Active TAKE 1 TABLET Sodium BY MOUTH DAILY 1 HOUR BEFORE BREAKFAST Arimidex [facility] 67955456826 1 MG Orally Active 1 tablet Once a day Nadolol [facility] 48118269045 40MG Active TAKE ONE TABLET BY MOUTH ONCE DAILY Ibuprofen [facility] 71076431195 800 MG Orally Active 1 tablet po Three times a prn pain day Keflex [facility] 12593219737 500 MG Orally Jun 30, Active 1 capsule every 12 hrs 2018 Diflucan [facility] 73916960770 150 MG Orally November Active 1 tablet once a week 2017 Nadolol [facility] 97850838960 40MG Active TAKE ONE TABLET BY MOUTH ONCE DAILY Levothyroxine [facility] 85192387862 112 MCG Orally Active 1 tablet on an Sodium Once a day empty stomach in the morning Tramadol HCl [facility] 70742670922 50 MG Orally October Active 1 tablet as every 6 hrs , 2018 Risedronate [facility] [address]-41 Active not defined Sodium Pennsaid [facility] 76003759323 2 % Active 2 applications Transdermal to affected Twice a day area Levothyroxine [facility] 13043441529 125 MCG Orally Active TAKE ONE Sodium Once a day TABLET BY MOUTH ONCE DAILY Fosamax [facility] [address]-13 Active not defined Calcium + D [facility] [address] Active not defined Results No Known Results Summary Purpose eClinicalWorks Submission
--- OUTSIDE RECORDS SUMMARY | 2019-07-23 09:31 | XMS REPORT | Summary of Care ---
:1960 Author Organization [facility] Address [address] [place] [id number] Care Team Providers Name Role Phone Melinda Murillo Alesha Primary Care Provider Reason for Visit Reason Comments Cough 3 days Sore Throat Encounter Details Date Type Department Care Team Description 06/28/2019 Urgent Care [facility] Unknown, Attending Strep pharyngitis (Primary Dx); Urgent Care Geraldine Lazcano FNP [address] [facility] [address] [place], [place] [id number] Fever, unspecified fever cause; [address], Cough; [place] [address] Allergies Active Allergy Reactions Severity Noted Date Comments Lisinopril Cough 09/28/2016 documented as of this encounter (statuses as of 06/28/2019) Medications Medication Sig Dispensed Refills Start Date End Date Status POTASSIUM CHLORIDE Take 1 Tab by 0 Active (KLOR-CON ORAL) mouth daily. furosemide (LASIX) Take 20 mg by 0 Active 20 mg tablet mouth daily. carvedilol (COREG) Take 3.125 mg 0 Active 3.125 mg tablet by mouth 2 (two) times daily with meals. nadolol 40 mg Take 40 mg by 0 Active tablet mouth daily. METFORMIN HCL Take 250 mg by 0 Active (METFORMIN ORAL) mouth 2 (two) times daily. HYDROcodone-acetami 1/2 - 1 1/2 Q4h 20 tablet 0 09/28/2016 Active nophen 5-325 mg PRN pain or tabletIndications: cough requiring Right medial knee Narcotic pain anastrozole 1 mg 0 07/25/2016 Active tablet esomeprazole 40 mg Take 40 mg by 0 Active capsule mouth daily with breakfast. risedronate 150 mg Take 150 mg by 0 11/08/2016 Active tablet mouth. Calcium Take by mouth. 0 Active Carb-Cholecalcifero l (CALCIUM 600 + D,3,) 600 mg(1,500mg) -200 unit Tab levothyroxine 112 Take 112 mcg by 0 12/02/2017 Active mcg tablet mouth. esomeprazole Take 40 mg by 0 Active (NEXIUM PACKET) 40 mouth daily mg packet with breakfast. traMADOL 50 mg TAKE 1 TABLET 0 10/15/2018 Active tablet BY MOUTH EVERY 6 HOURS NEEDED FOR PAIN amoxicillin 500 mg Take 1 capsule 20 capsule 0 06/28/2019 Active capsuleIndications: by mouth 2 0 Strep pharyngitis (two) times daily for 10 days. amoxicillin 500 mg Take 1 tablet 20 tablet 0 06/28/2019 Discontinued tabletIndications: by mouth 2 0 Strep pharyngitis (two) times daily for 10 days. 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 Encounter for routine gynecological examination 03/27/2013 Overview: [facility]: Stereostatic guided biopsy. Impression: Calcifications in the left breast at 12 o'clock. Patho: malignant ductal carcinoma in situ. Patho report: 07/02/13. Left breast at 12 o'clock- two small foci of intraductal carcinoma, solid pattern with associated calcifications, high nuclear grade. No invasive malignancy noted. Addendum to previous report- 06/03/2013. Impression of bilateral breast USG. No sonographic evidence of malignancy. Calcifications in the left central breast and tissues are probably fat necrosis. Stere otatic guided core needle biopsy of the dominant cluster of the new calcifications is recommended. Left breast- 5 o'clock 2cm from the nipple 0.4 x 0.6cm collocated cyst without interval change since . There is no solid mass in the left breast. Medical records received. DOS: 06/03/2013. Breast USG- Impression: suspicious of malignancy. There are new calcifications in the left central breast and also in tissues underlying the biopsy site which are probably fat necrosis. Sterostacic guided core needle biopsy of the dominant left central cluster of new calcifications is recommended and this was discussed with the patient. Bilateral mammogram: 2 new clusters of calcifications in the left upper outer quadrant. Sterostactic needle biopsy recommended. See scanned results. ICD10 Diagnosis Term Threat Analyst Utility Tobacco use disorder 03/27/2013 Thyroid disease 03/27/2013 Essential hypertension 03/27/2013 Overview: ICD10 Diagnosis Term Threat Analyst Utility Morbid obesity 03/27/2013 documented as of this encounter (statuses as of 06/28/2019) Immunizations Name Administration Dates Next Due Tdap 12/19/2011 documented as of this encounter Social History Tobacco Use Types Packs/Day Years Used Date Former Smoker Cigarettes Smokeless Tobacco: Never Used Comments: smokes one cigarette per month Alcohol Use Drinks/Week oz/Week Comments No Sex Assigned at Date Recorded Not on file Job Start Date Occupation Industry Not on file Not on file Not on file Travel History Travel Start Travel End No recent travel history available. documented as of this encounter Last Filed Vital Signs Vital Sign Reading Time Taken Comments Blood Pressure 130/86 06/28/2019 3:48 PM [facility] Pulse 77 06/28/2019 3:48 PM [facility] Temperature 37.6 C (99.6 F) 06/28/2019 3:48 PM [facility] Respiratory Rate 16 06/28/2019 3:48 PM [facility] Oxygen Saturation 96% 06/28/2019 3:48 PM [facility] Inhaled Oxygen Concentration - - Weight 113.8 kg (250 lb 12.8 oz) 06/28/2019 3:48 PM [facility] Height 167.6 cm (5' 6") 06/28/2019 3:48 PM [facility] Body Mass Index 40.48 06/28/2019 3:48 PM [facility] documented in this encounter Patient Instructions Patient InstructionsGeraldine Lazcano FNP - 06/28/2019 3:30 PM CST1. Strep pharyngitis - POCT FLU A AND B (MOLECULAR) - NEGATIVE - POCT GRP A STREP (MOLECULAR) - POSITIVE - amoxicillin 500 mg tablet; Take 1 tablet by mouth 2 (two) times daily for 10 days. Dispense: 20 tablet; Refill: 0 Educated about home care: - avoid others eating or drinking after you. - replace toothbrush tomorrow night. - drink plenty of fluids. - gargle warm salt water. - tylenol/motrin dosage chart reviewed and given - follow up with PCP, urgent care or ER if symptoms do now improve or worsens. Patient/parent verbalized understanding and agreed with plan of care. [facility] documented in this encounter Progress Notes Geraldine Lazcano FNP - 06/28/2019 3:30 PM CST Cc: Chief Complaint Patient presents with Cough 3 days Sore Throat Adry De Guzman is a 59 year old female presents to with concern for sore throat and cough. She started about 3 days ago with runny nose, sore throat and cough. Five days ago she had endoscopy. Now having chills and body aches. Denies any fever, sob or wheezing. Tolerating fluids. Sore Throat Location: Posterior Quality: Sore Severity: Moderate Onset quality: Gradual Duration: 3 days Timing: Intermittent Progression: Worsening Chronicity: New Relieved by: None tried Worsened by: Swallowing Ineffective treatments: None tried Associated symptoms: chills, cough and rhinorrhea Associated symptoms: no adenopathy, no drooling, no ear discharge, no ear pain, no fever, no headaches, no neck stiffness, no night sweats, no plugged ear sensation, no postnasal drip, no rash, no shortness of breath, no sinus congestion and no stridor Risk factors: recent endoscopy Risk factors: no exposure to strep, no exposure to mono, no sick contacts and no recent dental procedure Allergies Adry is allergic to lisinopril. Medications Outpatient Medications Prior to Visit Medication Sig Dispense Refill esomeprazole (NEXIUM PACKET) 40 mg packet Take 40 mg by mouth daily with breakfast. traMADOL 50 mg tablet TAKE 1 TABLET BY MOUTH EVERY 6 HOURS NEEDED FOR PAIN 0 Calcium Carb-Cholecalciferol (CALCIUM 600 + D,3,) 600 mg(1,500mg) -200 unit Tab Take by mouth. esomeprazole 40 mg capsule Take 40 mg by mouth daily with breakfast. levothyroxine 112 mcg tablet Take 112 mcg by mouth. risedronate 150 mg tablet Take 150 mg by mouth. anastrozole 1 mg tablet HYDROcodone-acetaminophen 5-325 mg tablet 1/2 - 1 /2 Q4h PRN pain or cough requiring Narcotic 20 tablet 0 METFORMIN HCL (METFORMIN ORAL) Take 250 mg by mouth 2 (two) times daily. nadolol 40 mg tablet Take 40 mg by mouth daily. carvedilol (COREG) 3.125 mg tablet Take 3.125 mg by mouth 2 (two) times daily with meals. furosemide (LASIX) 20 mg tablet Take 20 mg by mouth daily. POTASSIUM CHLORIDE (KLOR-CON ORAL) Take 1 Tab by mouth daily. No facility-administered medications prior to visit. Histories Past Medical History: Diagnosis Date Anemia Esophageal varices Hypertension Lobular carcinoma 2009 Osteoporosis Thyroid disease 03/27/2013 hypothyroid disease Thyroid disease Tobacco use disorder Past Surgical History: Procedure Laterality Date APPENDECTOMY BREAST BIOPSY 2009 Left breast BREAST SURGERY lumpectomy and reconstruction of both breasts SECTION 1982, 1987, 1990 CHOLECYSTECTOMY 1986 COLONOSCOPY ESOPHAGOGASTRODUODENOSCOPY Q [address] Romero REMOVAL OF OVARY(S) 1999 SALPINGO-OOPHORECTOMY one ovary- not sure which one TUBAL LIGATION 1990 Social History Socioeconomic History Marital status: Spouse name: Not on file Number of children: Not on file Years of education: Not on file Highest education level: Not on file Occupational History Not on file Social Needs Financial resource strain: Not on file Food insecurity: Worry: Not on file Inability: Not on file Transportation needs: Medical: Not on file Non-medical: Not on file Tobacco Use Smoking status: Former Smoker Types: Cigarettes Smokeless tobacco: Never Used Tobacco comment: smokes one cigarette per month Substance and Sexual Activity Alcohol use: No Drug use: No Sexual activity: Yes Partners: Male control/protection: Surgical Comment: sometimes Lifestyle Physical activity: Days per week: Not on file Minutes per session: Not on file Stress: Not on file Relationships Social connections: Talks on phone: Not on file Gets together: Not on file Attends bahai service: Not on file Active member of club or organization: Not on file Attends meetings of clubs or organizations: Not on file Relationship status: Not on file Intimate partner violence: Fear of current or ex partner: Not on file Emotionally abused: Not on file Physically abused: Not on file Forced sexual activity: Not on file Other Topics Concern Not on file Social History Narrative No domestic abuse or violence. Family History Problem Relation Age of Onset Hypertension Mother Diabetes Mother High cholesterol Mother Heart Father Uterine Cancer Maternal Aunt 56 Arthritis NoFHx Asthma NoFHx defects NoFHx Breast Cancer NoFHx Ovarian Cancer NoFHx Colon Cancer NoFHx Cancer NoFHx Depression NoFHx Genetic NoFHx Mental retardation NoFHx Neurological NoFHx Osteoporosis NoFHx Psychiatry NoFHx Other - see comments NoFHx Review of Systems Constitutional: Positive for chills and fatigue. Negative for fever and night sweats. HENT: Positive for rhinorrhea, sneezing and sore throat. Negative for drooling, ear discharge, ear pain and postnasal drip. Respiratory: Positive for cough. Negative for shortness of breath, wheezing and stridor. Gastrointestinal: Negative for diarrhea, nausea and vomiting. Musculoskeletal: Positive for myalgias. Negative for neck stiffness. Skin: Negative for rash. Neurological: Negative for dizziness, weakness and headaches. All other systems reviewed and are negative. Hematological: Negative for adenopathy. Vital Signs BP 130/86 | Pulse 77 | Temp 37.6 C (99.6 F) | Resp 16 | Ht 5' 6" (1.676 m) | Wt 250 lb 12.8oz (113.8 kg) | LMP 11/10/2005 | SpO2 96% | BMI 40.48 kg/ m Physical Exam Constitutional: She is oriented to person, place, and time. She appears well- developed and well-nourished. HENT: Head: Normocephalic and atraumatic. Right Ear: Tympanic membrane, external ear and ear canal normal. Left Ear: Tympanic membrane, external ear and ear canal normal. Nose: Mucosal edema present. No sinus tenderness. Mouth/Throat: Uvula is midline and mucous membranes are normal. Oropharyngeal exudate, posterior oropharyngeal edema and posterior oropharyngeal erythema present. Tonsils are 1+ on the right. Tonsils are 1+ on the left. No tonsillar exudate. Eyes: Conjunctivae are normal. Neck: Normal range of motion. Neck supple. Cardiovascular: Normal rate, regular rhythm and normal heart sounds. Exam reveals no gallop and no friction rub. No murmur heard. Pulmonary/Chest: Effort normal and breath sounds normal. No respiratory distress. She has no wheezes. She has no rales. Musculoskeletal: Normal range of motion. Neurological: She is alert and oriented to person, place, and time. Skin: Skin is warm and dry. Psychiatric: She has a normal mood and affect. Her behavior is normal. Nursing note and vitals reviewed. Assessment/Plan Adry De Guzman is a 59 year old female presents to with concern for sore throat and cough. 1. Strep pharyngitis - POCT FLU A AND B (MOLECULAR) - NEGATIVE - POCT GRP A STREP (MOLECULAR) - POSITIVE - amoxicillin 500 mg tablet; Take 1 tablet by mouth 2 (two) times daily for 10 days. Dispense: 20 tablet; Refill: 0 Educated about home care: - avoid others eating or drinking after you. - replace toothbrush tomorrow night. - drink plenty of fluids. - gargle warm salt water. - tylenol/motrin dosage chart reviewed and given - follow up with PCP, urgent care or ER if symptoms do now improve or worsens. Patient/parent verbalized understanding and agreed with plan of care. 2. Fever, unspecified fever cause - POCT FLU A AND B (MOLECULAR) - NEGATIVE - POCT GRP A STREP (MOLECULAR) - POSITIVE 3. Cough - POCT FLU A AND B (MOLECULAR) - NEGATIVE 4. Sore throat - POCT GRP A STREP (MOLECULAR) - POSITIVE Plan of care, desired health behaviors, goals, and medication discussed with patient. Education resources provided and reviewed with AVS. Patient/guardian/family verbalized understanding & agrees to plan of care. If applicable, the [place] [employer] database was accessed to review any controlled substance prescription claims data. The [employer] [employer] prescription claims data in [place] was reviewed to assess patient compliance with the medication treatment plan. Urgent Care precautions and follow up : 1. Return to clinic if your symptoms should worsen or fail to improve within 72 hours. 2. The care provided in the urgent care was for acute problems only. 3. You should follow up with your primary care provider within 72 hours. 4. Fill and take all your medications as prescribed. 5. Make sure you are staying adequately hydrated. MAY FOLLOW-UP WITH A PROVIDER OF YOUR CHOICE, SUCH : 1. A PHYSICIAN OF YOUR CHOICE OR, IF YOU WISH TO FOLLOW-UP WITHIN THE [facility], MAY TRY THESE OPTIONS (CLINIC APPOINTMENTS AVAILABLE ON [id number] BASIS): 1. SCHEDULE AN APPOINTMENT ONLINE AT WWW[email or web address] 2. OR CALL THE [facility] ACCESS CENTER AT OR 3. OR CALL YOUR [facility] PHYSICIAN'S OFFICE DIRECTLY IF YOU ARE ALREADY AN ESTABLISHED [facility] PATIENT. After hours care nurse access center available by calling [phone] 24 hours 7 days per week. Geraldine PARNELL [facility] arisela Benitez MA - 06/28/2019 3:30 PM CST Adry De Guzman is a 59 year old female Chief Complaint Patient presents with Cough 3 days Sore Throat Vitals: 06/28/19 1548 BP: 130/86 Pulse: 77 Resp: 16 Temp: 37.6 C (99.6 F) SpO2: 96% Weight: 250 lb 12.8 oz (113.8 kg) Height: 5' 6" (1.676 m) [id number] All Vitals taken, allergies and all medications reviewed, fall risk assessed. Pain level 0. Marisela Dinh MA 06/28/2019 3:51 PM documented in this encounter Plan of Treatment Date Type Specialty Care Team Description 12/08/2019 Office Visit Surgery Shyanne Goodrich MD [address] [place] [phone] 01/27/2020 Office Visit Obstetrics & Gynecology Vandana Hardy MD [address] [place] [address] DR. Tyler [address] [place] [id number] Health Maintenance Due Date Last Done Comments HEPATITIS C (HCV) SCREEN 1960 COLONOSCOPY 2009 Zoster Recombinant Vaccine 2009 (SHINGRIX) (1 of 2) LUNG CANCER SCREEN: 2014 Recommended for age 55-80 with 30 + pack year history INFLUENZA VACCINE (#1) 2019 Breast Cancer Screening 11/19/2019 11/18/2018, (MAMMOGRAM) 06/03/2013, 11/20/2010 DTaP,Tdap,and Td Vaccines (2 12/18/2021 12/19/2011 - Td) PAP SMEAR 12/03/2023 12/02/2018, 11/01/2010, 07/25/2007 PNEUMOCOCCAL 0-64 YEARS Aged Out No longer eligible based COMBINED SERIES on patient's age to complete this topic documented as of this encounter Procedures Procedure Name Priority Date/Time Associated Diagnosis Comments POCT FLU A AND B STAT 06/28/2019 3:59 PM Fever, unspecified Results for this (MOLECULAR) [facility] fever cause procedure are in Cough the results section. POCT GRP A STREP STAT 06/28/2019 3:54 PM Fever, unspecified Results for this (MOLECULAR) [facility] fever cause procedure are in Sore throat the results Strep pharyngitis section. documented in this encounter Results POCT FLU A AND B (MOLECULAR) (06/28/2019 3:59 PM [facility]) POCT INFLUENZA A neg Negative - Negative POCT INFLUENZA B neg Negative - Negative Specimen Swab Narrative Performed At accurate development and interpretation of all internal controls POCT GRP A STREP (MOLECULAR) (06/28/2019 3:54 PM [facility]) POCT GP A STREP pos Negative - Negative Specimen Swab - THROAT Narrative Performed At accurate development and interpretation of all internal controls documented in this encounter Visit Diagnoses Diagnosis Strep pharyngitis - Primary Streptococcal sore throat Fever, unspecified fever cause Cough Sore throat Acute pharyngitis documented in this encounter Insurance Payer Benefit Plan / Subscriber ID Effective Dates Phone Address Type Group [facility] xxxxxxxxx 2017-Present Medicaid COMM PLAN - PLUS MANAGED MEDICAID documented as of this encounter
--- OUTSIDE RECORDS SUMMARY | 2019-07-23 09:31 | XMS REPORT | Summary of Care ---
:1960 Author Organization [facility] Address [address] [place] [address] Care Team Providers Name Role Phone Melinda Murillo Alesha Primary Care Provider Reason for Referral (Routine) Status Reason Specialty Diagnoses / Referred By Referred To Procedures Contact Contact New Request Physical Therapy Diagnoses Left elbow pain Nilton Mas Procedures CONSULT/REFERRAL PHYSICAL THERAPY MD Patricia [address] [place] [address] [place] [address] Radiology Services (Routine) Status Reason Specialty Diagnoses / Referred By Referred To Procedures Contact Contact New Request Diagnostic Diagnoses Left elbow pain Nilton Mas Radiology Procedures XR ELBOW <3 VW LEFT MD Patricia [address] [place] [address] [place] [address] Reason for Visit Reason Comments Elbow Pain Left elbow/arm pain Encounter Details Date Type Department Care Team Description 07/16/2019 Office Visit [facility] Orthopaedic Nilton Mas Left elbow pain Surgery- Landon Gomez MD (Primary Dx) [address] [place] [place] [address] [place], [place] [phone] Allergies Active Allergy Reactions Severity Noted Date Comments Lisinopril Cough, Other - See comments Medium 05/23/2016 coughing documented as of this encounter (statuses as of 07/16/2019) Medications Medication Sig Dispensed Refills Start Date End Date Status POTASSIUM CHLORIDE Take 1 Tab by 0 Active (KLOR-CON ORAL) mouth daily. furosemide (LASIX) 20 mg Take 20 mg by 0 Active tablet mouth daily. carvedilol (COREG) 3.125 Take 3.125 mg by 0 Active mg tablet mouth 2 (two) times daily with meals. nadolol 40 mg tablet Take 40 mg by 0 Active mouth daily. METFORMIN HCL (METFORMIN Take 250 mg by 0 Active ORAL) mouth 2 (two) times daily. HYDROcodone-acetaminophe 1/2 - 1 1/2 Q4h 20 tablet 0 09/28/2016 Active n 5-325 mg PRN pain or tabletIndications: Right cough requiring medial knee pain Narcotic anastrozole 1 mg tablet 0 07/25/2016 Active esomeprazole 40 mg Take 40 mg by 0 Active capsule mouth daily with breakfast. risedronate 150 mg Take 150 mg by 0 11/08/2016 Active tablet mouth. Calcium Take by mouth. 0 Active Carb-Cholecalciferol (CALCIUM 600 + D,3,) 600 mg(1,500mg) -200 unit Tab levothyroxine 112 mcg Take 112 mcg by 0 12/02/2017 Active tablet mouth. esomeprazole (NEXIUM Take 40 mg by 0 Active PACKET) 40 mg packet mouth daily with breakfast. traMADOL 50 mg tablet TAKE 1 TABLET BY 0 10/15/2018 Active MOUTH EVERY 6 HOURS NEEDED FOR PAIN benzonatate 100 mg 0 06/11/2019 Active capsule blood sugar diagnostic 0 06/21/2016 Active (CONTOUR NEXT TEST STRIPS) strip HEMOCYTE-PLUS 106 mg 0 06/11/2019 Active iron- 1 mg Cap loratadine 10 mg tablet 0 06/11/2019 Active meclizine 25 mg tablet 0 06/11/2019 Active ondansetron 4 mg tablet 0 05/26/2019 Active methylPREDNISolone Take 21 tablets 1 Each 0 07/16/2019 Active (MEDROL, RADHA,) 4 mg by mouth tabletsIndications: Left SEE-INSTRUCTIONS elbow pain . follow package directions documented as of this encounter (statuses as of 07/16/2019) Active Problems Problem Noted Date Right medial [...] recommended. See scanned results. 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 Morbid obesity 03/27/2013 documented as of this encounter (statuses as of 07/16/2019) Immunizations Name Administration Dates Next Due Tdap [...] Sign Reading Time Taken Comments Blood Pressure 131/79 07/16/2019 9:18 AM DRY PLASTERER HELPER Pulse 65 07/16/2019 9:18 AM DRY PLASTERER HELPER Temperature - - Respiratory Rate 20 07/16/2019 9:18 AM DRY PLASTERER HELPER Oxygen Saturation - - Inhaled Oxygen Concentration - - Weight 113.4 kg (250 lb) 07/16/2019 9:18 AM DRY PLASTERER HELPER Height 167.6 cm (5' 6") 07/16/2019 9:18 AM DRY PLASTERER HELPER Body Mass Index 40.35 07/16/2019 9:18 AM DRY PLASTERER HELPER documented in this encounter Progress Notes Nilton Mas MD - 07/16/2019 9:30 AM CST Adry De Guzman is a 59 year old female Chief Complaint Patient presents with Elbow Pain Left elbow/arm pain Vitals: 07/16/19 0918 BP: 131/79 BP Location: Right arm Patient Position: Sitting BP CUFF SIZE: Adult Large Pulse: 65 Resp: 20 Weight: 113.4 kg (250 lb) Height: 66" (167.6 cm) [facility] - [address] All Vitals taken, allergies and all medications reviewed, fall risk assessed. Pain level 5/10. KAMERON SPEAR MA 07/16/2019 9:23 AM Adry De Guzman is a 59 year old female. Elbow Pain This is a recurrent problem. The current episode started more than 1 month ago. The problem occurs constantly. The problem has been gradually worsening. Associated symptoms include joint swelling. She has tried position changes, NSAIDs, relaxation and rest for the symptoms. The treatment provided mildrelief. Allergies Adry is allergic to lisinopril. Medications Outpatient Medications Prior to Visit Medication Sig Dispense Refill blood sugar diagnostic (CONTOUR NEXT TEST STRIPS) strip benzonatate 100 mg capsule HEMOCYTE-PLUS 106 mg iron- 1 mg Cap loratadine 10 mg tablet meclizine 25 mg tablet ondansetron 4 mg tablet esomeprazole (NEXIUM PACKET) 40 mg packet Take [...] HYDROcodone-acetaminophen 5-325 mg tablet 1/2 - 1 1/2 Q4h PRN pain or cough requiring Narcotic [...] file Gets together: Not on file Attends alevism service: Not on file Active member of [...] see comments NoFHx Review of Systems Constitutional: Negative. HENT: Negative. Eyes: Negative. Respiratory: Negative. Breasts: Negative. Cardiovascular: Negative. Gastrointestinal: Negative. Genitourinary: Negative. Musculoskeletal: Positive for joint swelling. Skin: Negative. Neurological: Negative. Psychiatric/Behavioral: Negative. Endocrine: Endocrine negative Vital Signs Ht 66" (167.6 cm) | Wt 113.4 kg (250 lb) | LMP 11/10/2005 | BMI 40.35 kg/m Physical Exam Musculoskeletal: Left elbow: She exhibits decreased range of motion. Tenderness found. Lateral epicondyle tenderness noted. General: Well-developed well-nourished oriented to person place and time HEENT normocephalic atraumatic atraumatic pupils equal round reactive to light extraocular muscles intact Cervical thoracic and lumbar spine without focal deficit normal kyphosis and lordosis Chest clear to auscultation and percussion Cardiovascular regular rate and rhythm without gallop rub or murmur soft without organomegaly Normal bowel sounds Neurologic: Focal myotome or dermatomal deficits Vascular: Intact symmetrical bilateral upper and lower extremities Skin without stasis varicosities or breakdown Extremities without cyanosis clubbing or edema Lymphatics no peripheral lymphedema Psych normal mood and affect. Neurovascular function is intact. To include brisk capillary refill warm pink skin active motor function and sensory function intact. + Cozen's + Mill's Nursing note and vitals reviewed. Assessment/Plan Diagnosis left tennis elbow Plan Patient prescribed medrol dosepak. Tennis elbow is an inflammation of the tendons that join the forearm muscles on the outside of the elbow. The forearm muscles and tendons become damaged from overuse repeating the same motions again and again. This leads to pain and tenderness on the outside of the elbow. Do not lift anything at all with the right/left hand including a coffee cup until the exercise program is graduated Start with the Juan method of stretching with elbow straight and shoulder extended pull the wrist toward the shoulder while turning the hand out. Perform this exercise for 20 seconds at a time and doit 6-8 times. Do as many repetitions as you can without pain until you get to a repetitions, then add the next step Wrist curls and wrist extensions with that. 2-1/2 pound weight perform sets of 10. do as many sets of 10, is a candidate you can get to 6 or 8 sets of 10. Continue previous steps in this case. Stretching and stretching without pain at stress ball squeeze the stress ball in sets of 10. There is many setsof 10, is you can until he can do 6-8 sets of 10. Continue the stretching and curls. Once you can do all of these exercises pain-free. Then you can gradually begin to lift light things and build up from there. documented in this encounter Plan of Treatment Date Type Specialty Care Team Description 12/08/2019 Office Visit Surgery Shyanne Goodrich MD [address] [place] [phone] 01/27/2020 Office Visit Obstetrics & Gynecology Vandana Hardy MD [address] [place] [address] [place] [address] [phone] Health Maintenance Due Date Last Done Comments [...] this topic documented as of this encounter Results XR ELBOW <3 VW LEFT (07/16/2019 9:25 AM DRY PLASTERER HELPER) Specimen Narrative Performed At Normal study PACS Performing Organization Address City/State/Zipcode Phone Number PACS documented in this encounter Visit Diagnoses Diagnosis Left elbow pain - Primary Pain in joint, upper arm documented in this encounter Insurance Payer Benefit Plan / Subscriber ID Effective Dates Phone Address Type Group [facility] xxxxxxxxx 2017-Present Medicaid COMM PLAN - PLUS MANAGED MEDICAID documented as of this encounter
--- OUTSIDE RECORDS SUMMARY | 2019-07-23 09:32 | XMS REPORT | Summary of Care ---
:1960 Author Organization [facility] Address [address] [place] [address] Care Team Providers Name Role Phone Melinda Murillo Alesha Primary Care Provider Reason for Referral (Routine) Status Reason Specialty Diagnoses / Referred By Referred To Procedures Contact Contact New Request Physical Therapy Diagnoses Left elbow pain Nilton Mas Procedures CONSULT/REFERRAL PHYSICAL THERAPY MD Patricia [address] [place] [address] Radiology Services (Routine) Status Reason Specialty Diagnoses / Referred By Referred To Procedures Contact Contact New Request Diagnostic Diagnoses Left elbow pain Nilton Mas Radiology Procedures XR ELBOW <3 VW LEFT MD Patricia [address] [place] [address] Reason for Visit Reason Comments Elbow Pain Left elbow/arm pain Encounter Details Date Type Department Care Team Description 07/16/2019 Office Visit [facility] Orthopaedic Nilton Mas Left elbow pain Surgery- Landon Gomez MD (Primary Dx) [address] [place] [address] [place], [place] [phone] Allergies Active Allergy Reactions Severity Noted [...] recommended. See scanned results. ICD10 Diagnosis Term Bean Snapper Utility Tobacco use disorder 03/27/2013 Thyroid disease 03/27/2013 Essential hypertension 03/27/2013 Overview: ICD10 Diagnosis Term Bean Snapper Utility Morbid obesity 03/27/2013 documented as of [...] Comments Blood Pressure 131/79 07/16/2019 9:18 AM EVENTS INTERN Pulse 65 07/16/2019 9:18 AM EVENTS INTERN Temperature - - Respiratory Rate 20 07/16/2019 9:18 AM EVENTS INTERN Oxygen Saturation - - Inhaled Oxygen Concentration - - Weight 113.4 kg (250 lb) 07/16/2019 9:18 AM EVENTS INTERN Height 167.6 cm (5' 6") 07/16/2019 9:18 AM EVENTS INTERN Body Mass Index 40.35 07/16/2019 9:18 AM EVENTS INTERN documented in this encounter Progress Notes Nilton Mas MD - 07/16/2019 9:30 AM CST Adry De Guzman is a 59 year old female Chief Complaint Patient presents with Elbow Pain Left elbow/arm pain Vitals: 07/16/19 0918 BP: 131/79 BP Location: Right arm Patient Position: Sitting BP CUFF SIZE: Adult Large Pulse: 65 Resp: 20 Weight: 113.4 kg (250 lb) Height: 66" (167.6 cm) [facility] - [address] All Vitals taken, allergies and all [...] file Gets together: Not on file Attends jehovah's witness service: Not on file Active member of [...] 12/08/2019 Office Visit Surgery Shyanne Goodrich MD [address] [place] [phone] 01/27/2020 Office Visit Obstetrics & Gynecology Vandana Hardy MD [address] [place] [address] [place] [address] [phone] Health Maintenance Due Date Last Done Comments [...] ELBOW <3 VW LEFT (07/16/2019 9:25 AM EVENTS INTERN) Specimen Narrative Performed At Normal study PACS Performing Organization Address City/State/Zipcode Phone Number PACS documented in this encounter Visit Diagnoses Diagnosis Left elbow pain - Primary Pain in joint, upper arm documented in this encounter Insurance Payer Benefit Plan / Subscriber ID Effective Dates Phone Address Type Group [facility] xxxxxxxxx 2017-Present Medicaid COMM PLAN - PLUS MANAGED MEDICAID documented as of this encounter
--- OUTSIDE RECORDS SUMMARY | 2019-07-23 09:32 | XMS REPORT | Summary of Care ---
:1960 Author Organization [facility] Address [address] [place] [address] Care Team Providers Name Role Phone Melinda Murillo Alesha Primary Care Provider Encounter Details Date Type Department Care Team Description 07/16/2019 [facility] [address] [place] [address] [place] [address] [place] [phone] Allergies Active Allergy Reactions Severity Noted Date Comments Lisinopril Cough, Other - See comments Medium 05/23/2016 coughing documented as of this encounter (statuses as of 07/17/2019) Medications Medication Sig Dispensed Refills Start Date [...] as of this encounter (statuses as of 07/17/2019) Active Problems Problem Noted Date Right medial [...] recommended. See scanned results. ICD10 Diagnosis Term Cut To Length Operator Utility Tobacco use disorder 03/27/2013 Thyroid disease 03/27/2013 Essential hypertension 03/27/2013 Overview: ICD10 Diagnosis Term Cut To Length Operator Utility Morbid obesity 03/27/2013 documented as of this encounter (statuses as of 07/17/2019) Immunizations Name Administration Dates Next Due Tdap [...] of this encounter Last Filed Vital Signs Not on filedocumented in this encounter Plan of Treatment Date Type Specialty Care Team Description 12/08/2019 Office Visit Surgery Shyanne Goodrich MD [address] [place] [phone] 01/27/2020 Office Visit Obstetrics & Gynecology Vandana Hardy MD [address] [place] [address] [place] [address] [phone] Health Maintenance Due Date Last Done Comments [...] Procedure Name Priority Date/Time Associated Diagnosis Comments XR ELBOW <3 VW LEFT Routine 07/16/2019 9:25 AM Left elbow pain Results for this GROUP FITNESS INSTRUCTOR procedure are in the results section. documented in this encounter Results XR ELBOW <3 VW LEFT (07/16/2019 9:25 AM GROUP FITNESS INSTRUCTOR) Specimen Narrative Performed At Normal study PACS Performing Organization Address City/State/Zipcode Phone Number PACS documented in this encounter Visit Diagnoses Diagnosis Left elbow pain Pain in joint, upper arm documented in this encounter Insurance Payer Benefit Plan / Subscriber ID Effective Dates Phone Address Type Group [facility] xxxxxxxxx 2017-Present Medicaid COMM PLAN - PLUS MANAGED MEDICAID documented as of this encounter
--- OUTSIDE RECORDS SUMMARY | 2019-07-23 09:32 | XMS REPORT ---
:1960 Author Organization [employer] Care Team Providers Name Role Phone Murillo, Na Provider Role Unavailable Allergies, Adverse Reactions, Alerts Substance Reaction Event Type Lisinopril Info Not Available Drug Allergy Problems Problem Type Condition Code Onset Dates Condition Status Problem Breast cancer C50.919 Active Problem Post-menopausal bleeding N95.0 Active Problem Thrombocytopenia D69.6 Active Problem Gastroesophageal reflux disease K21.9 Active Problem HTN (hypertension) I10 Active Problem Edema R60.9 Active Assessment Cough R05 Active Problem Fatty liver K76.0 Active Problem Hyperglycemia R73.9 Active Problem Hypothyroidism E03.9 Active Problem Obesity E66.9 Active Problem Seasonal allergies J30.2 Active Problem Personal history of malignant Z85.3 Active neoplasm of breast Problem Secondary esophageal varices I85.10 Active without bleeding Problem Esophageal varices determined by I85.00 Active endoscopy Problem Pain, joint, knee, left M25.562 Active Problem Varicose veins of both lower I83.813 Active extremities with pain Problem Prediabetes R73.03 Active Problem Liver fibrosis K74.0 Active Problem 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) Problem Splenomegaly R16.1 Active Assessment Seasonal allergies J30.2 Active Problem Osteoporosis, unspecified M81.0 Active osteoporosis type, unspecified pathological fracture presence Problem Intramural leiomyoma of uterus D25.1 Active Assessment Esophageal varices determined by I85.00 Active endoscopy Problem Benign paroxysmal positional H81.13 Active vertigo, bilateral Assessment Liver fibrosis K74.0 Active Problem Primary osteoarthritis of left knee M17.12 Active Assessment 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 Problem Iron deficiency anemia, unspecified D50.9 Active iron deficiency anemia type Assessment Osteoporosis, unspecified M81.0 Active osteoporosis type, unspecified pathological fracture presence Problem Cutaneous abscess, unspecified site L02.91 Active Assessment Benign paroxysmal positional H81.13 Active vertigo, bilateral Problem Other osteoporosis M81.8 Active Problem Chronic depressive person F34.1 Active Assessment Prediabetes R73.03 Active Problem Colon polyps K63.5 Active Assessment Iron deficiency anemia, unspecified D50.9 Active iron deficiency anemia type Problem Mixed hyperlipidemia E78.2 Active Assessment Hypothyroidism E03.9 Active Problem Vaginal spotting N92.0 Active Assessment HTN (hypertension) I10 Active Problem Overactive bladder N32.81 Active Problem 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, unspecified laterality Problem 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 Medications Medication Code Code Instructions Start End Status Dosage System Date Date Metformin HCl [facility] 61681504078 500 MG Orally Active 1/2 tablet Twice a day with meals Meclizine HCl [facility] 19019853092 25 MG Orally Active 1 tablet as twice a day needed Levothyroxine [facility] 89832275727 125 MCG Orally Active TAKE ONE Sodium Once a day TABLET BY MOUTH ONCE DAILY Ibuprofen [facility] 06455323013 800 MG Orally Active 1 tablet po Three times a prn pain day Hemocyte Plus [facility] 08430833729 106-1 MG Feb 27, Active 1 capsule Orally Once a 2019 day Calcium + D [facility] [address] Active not defined Risedronate [facility] [address]-22 Active not defined Sodium Benzonatate [facility] 24076587893 100 MG Orally Jun 11Jun Active 1 capsule as two times a 2019, needed day prn cough 2019 Tramadol HCl [facility] 35001508435 50 MG Orally October Active 1 tablet as every 6 hrs , needed 2018 Levothyroxine [facility] 27167228652 112 MCG Active TAKE 1 TABLET Sodium BY MOUTH DAILY 1 HOUR BEFORE BREAKFAST Risedronate [facility] 93036329106 150 MG Orally Jun 11November Active 1 tablet at Sodium Once a month 2019 28, least 30 2020 minutes before the first food or drink, other than water, of the day Diflucan [facility] 19384686778 150 MG Orally November Active 1 tablet once a week 2017 Loratadine [facility] 12203241253 10 MG Orally Jun 11November Active 1 tablet Once a day 2019 Nadolol [facility] 42112793049 40MG Orally Active 1 tablet Once a day Levothyroxine [facility] 22363209992 112 MCG Orally Active 1 tablet on an Sodium Once a day empty stomach in the morning Fosamax [facility] [address]-14 Active not defined Nadolol [facility] 70816980384 40 MG Active TAKE 1 TABLET BY MOUTH DAILY Pennsaid [facility] 22452386760 2 % Active 2 applications Transdermal to affected Twice a day area Keflex [facility] 79487239723 500 MG Orally Jun 30, Active 1 capsule every 12 hrs 2018 Arimidex [facility] 23609054742 1 MG Orally Active 1 tablet Once a day Results No Known Results Summary Purpose [employer] Submission
--- NOTE | 2019-07-23 13:03 | RAD REPORT ---
EXAM DESCRIPTION: Reagan Single View07/23/2019 12:57 pm CLINICAL HISTORY: Cough COMPARISON: 2011 FINDINGS: The lungs appear clear of acute infiltrate. The heart is mildly enlarged IMPRESSION: No acute abnormalities displayed
--- NOTE | 2019-07-23 14:41 | ER ---
Nurse's Notes [facility] Angela Name: Adry De Guzman Age: 59 yrs Sex: Female : 1960 Arrival Date: 07/23/2019 Time: 09:25 Bed 28 Private MD: Diagnosis: Cough;Acute pharyngitis Presentation: 07/22 10:20 Chief complaint: Patient states: Just got back from the [place], reports dry, hacking jl7 cough x 2 days with wheezing, denies fever, N/V/D. Coronavirus screen: The patient has NOT traveled to a country currently being monitored by the [facility] within the last 14 days. Proceed with normal triage procedures. Ebola Screen: No symptoms or risks identified at this time. Initial Sepsis Screen: Does the patient meet any 2 criteria? No. Patient's initial sepsis screen is negative. Does the patient have a suspected source of infection? No. Patient's initial sepsis screen is negative. Risk Assessment: Do you want to hurt yourself or someone else? Patient reports no desire to harm self or others. Onset of symptoms was July 21, 2019. Care prior to arrival: None. 10:20 Method Of Arrival: Ambulatory jl7 10:20 Acuity: JULEE 4 jl7 Triage Assessment: 10:25 General: Appears in no apparent distress. uncomfortable, Behavior is calm, cooperative, jl7 appropriate for age. Pain: Denies pain. Neuro: Level of Consciousness is awake, alert, obeys commands, Oriented to person, place, time, situation. Cardiovascular: Patient's skin is warm and dry. Respiratory: Reports cough that is non-productive, dry, hacking, Onset: The symptoms/episode began/occurred x 2 days, the patient has mild shortness of breath. Derm: Skin is pink, warm \T\ dry. Historical: - Allergies: 10:24 Lisinopril; jl7 - Home Meds: 10:24 levothyroxine 112 mcg tab 1 tab once daily [Active]; nadolol 40 mg Oral tab 1 tab once jl7 daily [Active]; metformin 250 Oral Tb24 2 times per day [Active]; Fosamax Oral [Active]; - PMHx: 10:24 BREAST CA; Diabetes - NIDDM; Hypertension; Hypothyroidism; liver fibrosis; Osteoporosis;jl7 - PSHx: 10:24 Lumpectomy; Cholecystectomy; jl7 - Immunization history:: Adult Immunizations up to date. - Social history:: Smoking status: Patient denies any tobacco usage or history of. Screenin:30 Abuse screen: Denies threats or abuse. Nutritional screening: No deficits noted. vc Tuberculosis screening: No symptoms or risk factors identified. Fall Risk None identified. Assessment: 12:30 General: Appears in no apparent distress. uncomfortable, ill, Behavior is calm, vc cooperative, appropriate for age. Pain: Denies pain. Neuro: Level of Consciousness is awake, alert, obeys commands, Oriented to person, place, time, situation, Appropriate for age. Cardiovascular:. 12:30 Respiratory: Airway is patent Respiratory effort is even, unlabored, Respiratory vc pattern is regular, symmetrical. Respiratory: Reports shortness of breath on exertion cough that is non-productive, persistent. GI: No signs and/or symptoms were reported involving the gastrointestinal system. : No signs and/or symptoms were reported regarding the genitourinary system. EENT: No signs and/or symptoms were reported regarding the EENT system. Derm: Skin is intact, is healthy with good turgor, Skin temperature is warm. Musculoskeletal: Circulation, motion, and sensation intact. Range of motion: intact in all extremities. 13:30 Reassessment: Patient and/or family updated on plan of care and expected duration. Pain vc level reassessed. Patient is alert, oriented x 3, equal unlabored respirations, skin warm/dry/pink. 14:21 Reassessment: Patient and/or family updated on plan of care and expected duration. Pain vc level reassessed. Patient is alert, oriented x 3, equal unlabored respirations, skin warm/dry/pink. Neuro: Level of Consciousness is awake, alert, obeys commands. Vital Signs: 10:20 BP 139 / 74; Pulse 72; Resp 17 S; Temp 98.3(O); Pulse Ox 97% on R/A; Weight 113.4 kg jl7 (R); Height 5 ft. 6 in. (167.64 cm) (R); Pain 0/10; 12:30 BP 148 / 99; Pulse 82; Resp 18; Pulse Ox 100% on R/A; vc 13:30 BP 131 / 81; Pulse 71; Resp 17; Pulse Ox 100% on R/A; vc 14:00 BP 129 / 67; Pulse 58; Resp 16; Temp 98.2(O); Pulse Ox 99% on R/A; vc 10:20 Body Mass Index 40.35 (113.40 kg, 167.64 cm) 7 ED Course: 09:25 Patient arrived in ED. ag5 10:22 Triage completed. jl7 10:25 Arm band placed on right wrist. 7 11:12 Que Scott MD is Attending Physician. kdr 11:54 Mary Lentz, RN is Primary Nurse. vc 12:30 Patient has correct armband on for positive identification. Placed in gown. Bed in low vc position. Call light in reach. Pulse ox on. NIBP on. 12:58 XRAY Chest (1 view) In Process Unspecified. EDMS 14:35 No provider procedures requiring assistance completed. Patient did not have IV access vc during this emergency room visit. Administered Medications: No medications were administered Outcome: 14:16 Discharge ordered by . kdr 14:35 Discharged to home ambulatory, with significant other. vc 14:35 Condition: good 14:35 Discharge instructions given to patient, significant other, Instructed on discharge instructions, follow up and referral plans. no driving heavy equipment, medication usage, Demonstrated understanding of instructions, follow-up care, medications, Prescriptions given X 4. 14:36 Patient left the ED. vc Signatures: Dispatcher [employer] EDAK Que Scott MD MD kdr Polo Peter RN RN [facility] HenrikSunday [facility] Mary Lentz, JAN RN vc Corrections: (The following items were deleted from the chart) 14:34 14:21 BP 129 / 67; Pulse 58bpm; Resp 16bpm; Pulse Ox 99% RA; vc vc
--- NOTE | 2019-07-23 14:42 | EDPHYS ---
Physician Documentation [facility] Name: Adry De Guzman Age: 59 yrs Sex: Female : 1960 Arrival Date: 07/23/2019 Time: 09:25 Bed 28 Private MD: ED Physician Que Scott HPI: 07/22 14:02 This 59 yrs old Female presents to ER via Ambulatory with complaints of kdr Breathing Difficulty, Cough. 14:03 The patient or guardian reports cough, that is intermittent, described as severe, with kdr no sputum. Onset: The symptoms/episode began/occurred 3 day(s) ago. Severity of symptoms: At their worst the symptoms were severe, in the emergency department the symptoms have improved, markedly. Modifying factors: The symptoms are alleviated by nothing, the symptoms are aggravated by exertion. Associated signs and symptoms: Pertinent positives: sore throat, Pertinent negatives: chest pain, diarrhea, ear ache, fever, nausea, rhinorrhea, vomiting. The patient has not experienced similar symptoms in the past. The patient has not recently seen a physician, States she recently had pharyngitis and was on abx but has finished those. Historical: - Allergies: 10:24 Lisinopril; jl7 - Home Meds: 10:24 levothyroxine 112 mcg tab 1 tab once daily [Active]; nadolol 40 mg Oral tab 1 tab once jl7 daily [Active]; metformin 250 Oral Tb24 2 times per day [Active]; Fosamax Oral [Active]; - PMHx: 10:24 BREAST CA; Diabetes - NIDDM; Hypertension; Hypothyroidism; liver fibrosis; Osteoporosis;jl7 - PSHx: 10:24 Lumpectomy; Cholecystectomy; jl7 - Immunization history:: Adult Immunizations up to date. - Social history:: Smoking status: Patient denies any tobacco usage or history of. ROS: 14:03 Constitutional: Negative for fever, chills, and weight loss, Eyes: Negative for injury, kdr pain, redness, and discharge, ENT: Negative for injury, pain, and discharge, Neck: Negative for injury, pain, and swelling, Cardiovascular: Negative for chest pain, palpitations, and edema, Abdomen/GI: Negative for abdominal pain, nausea, vomiting, diarrhea, and constipation, Back: Negative for injury and pain, : Negative for injury, bleeding, discharge, and swelling, MS/Extremity: Negative for injury and deformity, Skin: Negative for injury, rash, and discoloration, Neuro: Negative for headache, weakness, numbness, tingling, and seizure activity. Psych: Negative for depression, anxiety, suicide ideation, homicidal ideation, and hallucinations, Allergy/Immunology: Negative for hives, rash, and allergies, Endocrine: Negative for neck swelling, polydipsia, polyuria, polyphagia, and marked weight changes, Hematologic/Lymphatic: Negative for swollen nodes, abnormal bleeding, and unusual bruising. 14:03 ENT: Positive for sore throat. 14:03 Respiratory: Positive for cough. Exam: 14:03 Constitutional: This is a well developed, well nourished patient who is awake, alert, kdr and in no acute distress. Head/Face: Normocephalic, atraumatic. Eyes: Pupils equal round and reactive to light, extra-ocular motions intact. Lids and lashes normal. Conjunctiva and sclera are non-icteric and not injected. Cornea within normal limits. Periorbital areas with no swelling, redness, or edema. Neck: Trachea midline, no thyromegaly or masses palpated, and no cervical lymphadenopathy. Supple, full range of motion without nuchal rigidity, or vertebral point tenderness. No Meningismus. Chest/axilla: Normal chest wall appearance and motion. Nontender with no deformity. No lesions are appreciated. Cardiovascular: Regular rate and rhythm with a normal S1 and S2. No gallops, murmurs, or rubs. Normal PMI, no JVD. No pulse deficits. Respiratory: Lungs have equal breath sounds bilaterally, clear to auscultation and percussion. No rales, rhonchi or wheezes noted. No increased work of breathing, no retractions or nasal flaring. Abdomen/GI: Soft, non-tender, with normal bowel sounds. No distension or tympany. No guarding or rebound. No evidence of tenderness throughout. Back: No spinal tenderness. No costovertebral tenderness. Full range of motion. Skin: Warm, dry with normal turgor. Normal color with no rashes, no lesions, and no evidence of cellulitis. MS/ Extremity: Pulses equal, no cyanosis. Neurovascular intact. Full, normal range of motion. Neuro: Awake and alert, GCS 15, oriented to person, place, time, and situation. Cranial nerves II-XII grossly intact. Motor strength 5/5 in all extremities. Sensory grossly intact. Cerebellar exam normal. Normal gait. Psych: Awake, alert, with orientation to person, place and time. Behavior, mood, and affect are within normal limits. Vital Signs: 10:20 BP 139 / 74; Pulse 72; Resp 17 S; Temp 98.3(O); Pulse Ox 97% on R/A; Weight 113.4 kg jl7 (R); Height 5 ft. 6 in. (167.64 cm) (R); Pain 0/10; 12:30 BP 148 / 99; Pulse 82; Resp 18; Pulse Ox 100% on R/A; vc 13:30 BP 131 / 81; Pulse 71; Resp 17; Pulse Ox 100% on R/A; vc 14:00 BP 129 / 67; Pulse 58; Resp 16; Temp 98.2(O); Pulse Ox 99% on R/A; vc 10:20 Body Mass Index 40.35 (113.40 kg, 167.64 cm) 7 MDM: 14:03 Data reviewed: vital signs, nurses notes, lab test result(s), radiologic studies. kdr Counseling: I had a detailed discussion with the patient and/or guardian regarding: the historical points, exam findings, and any diagnostic results supporting the discharge/admit diagnosis, lab results, radiology results. 14:16 Patient medically screened. kdr 07/22 12:40 Order name: XRAY Chest (1 view); Complete Time: 13:56 kdr 07/22 13:54 Order name: Group A Streptococcus Rapid Sc; Complete Time: 13:56 EDMS 07/22 13:59 Order name: Influenza Screen (A ; Complete Time: 14:13 EDMS 07/22 12:40 Order name: O2 Per Protocol; Complete Time: 13:25 kdr 07/22 12:40 Order name: O2 Sat Monitoring; Complete Time: 13:25 kdr Administered Medications: No medications were administered Disposition: 07/23/19 14:16 Discharged to Home. Impression: Cough, Acute pharyngitis. - Condition is Stable. - Discharge Instructions: Pharyngitis, Cough, Adult, Jmby-ry-Ouxe. - Prescriptions for Promethazine VC- Codeine 6.25-5-10 mg/5 mL Oral syrup - take 5 milliliter by ORAL route every 4-6 hours As needed as needed, not to exceed 30 mL in 24 hours; 200 milliliter. Ibuprofen 600 mg Oral Tablet - take 1 tablet by ORAL route every 6 hours As needed take with food; 30 tablet. Prednisone 20 mg Oral Tablet - take 1 tablet by ORAL route once daily for 5 days; 5 tablet. Zyrtec 10 mg Oral Tablet - take 1 tablet by ORAL route once daily As needed; 20 tablet. - Medication Reconciliation Form, Thank You Letter, Prescription Opioid Use form. - Follow up: Private Physician; When: 2 - 3 days; Reason: If symptoms return, Further diagnostic work-up, Recheck today's complaints, Continuance of care, Re-evaluation by your physician. - Problem is new. - Symptoms have improved. Signatures: Dispatcher [employer] EDMS Que Scott MD MD kdr Leal, Jahala, RN RN jl7 Mary Lentz RN RN vc Corrections: (The following items were deleted from the chart) 12:52 12:41 BASIC METABOLIC PANEL+C.LAB.BRZ ordered. [facility] 12:53 12:41 CBC+H.LAB.BRZ ordered. [facility] 12:53 12:41 HEPATIC FUNCTION+C.LAB.BRZ ordered. [facility] 12:53 12:41 MAGNESIUM+C.LAB.BRZ ordered. [facility] 12:53 12:41 PROBNP+C.LAB.BRZ ordered. [facility] 12:53 12:42 PROTIME (+INR)+COAG.LAB.BRZ ordered. [facility] 12:53 12:42 TROPONIN (EMERG DEPT USE ONLY)+C.LAB.BRZ ordered. [facility] 13:24 12:40 IV Saline Lock ordered. kdr vc 13:25 12:40 Cardiac monitoring ordered. kdr vc 13:25 12:40 EKG - Nurse/Tech ordered. kdr vc 13:25 12:40 Labs collected and sent ordered. kdr vc 14:36 14:16 07/23/2019 14:16 Discharged to Home. Impression: Cough; Acute pharyngitis. vc Condition is Stable. Forms are Medication Reconciliation Form, Thank You Letter, Antibiotic Education, Prescription Opioid Use. Follow up: Private Physician; When: 2 - 3 days; Reason: If symptoms return, Further diagnostic work-up, Recheck today's complaints, Continuance of care, Re-evaluation by your physician. Problem is new. Symptoms have improved. kdr
[2019-07-23 15:46] VITALS: BP 129/67; TEMP 98.2; O2SAT 99
== END 2019-07-23 14:36 | disposition home or self-care (01) ==
LOC: ER 09:23
DX: J02.9 Acute pharyngitis, unspecified (principal); I10 Essential (primary) hypertension; E11.9 Type 2 diabetes mellitus without complications; E03.9 Hypothyroidism, unspecified; Z85.3 Personal history of malignant neoplasm of breast; Z88.8 Allergy status to other drugs, medicaments and biological substances
CPT/HCPCS: 71045; 87070; 87081; 87804; 99283

== ENCOUNTER 2020-11-02 07:05 | Day surgery (SDC) | payer OTHER ==
[2020-11-02] MEDS ORDERED: NA CHLORIDE 0.9% 1,000 ML ONE (07:47)
[2020-11-02] MEDS ORDERED: LIDOCAINE 1% MPF 5 ML VIAL ONE (09:16)
[2020-11-02] MEDS ORDERED: propofoL 200 MG/20 ML VIAL IV ONE (09:16)
--- NOTE | 2020-11-02 09:30 | ENDO RPT ---
[address], [address] EGD PROCEDURE REPORT EXAM DATE: 11/02/2020 PATIENT NAME: Adry De Guzman MR#: [id number] BIRTHDATE: 1960 ATTENDING: Shailesh Lazcano Dr STATUS: outpatient ICE SKATING TEACHER: Bertha Polanco RN and Jasmina Riley INDICATIONS: The patient is a 60 yr old Female here for an EGD due to surveillance PROCEDURE PERFORMED: EGD with banding MEDICATIONS: Per Anesthesia. TOPICAL ANESTHETIC: none CONSENT: The patient understands the risks and benefits of the procedure and understands that these risks include, but are not limited to: sedation, allergic reaction, infection, perforation and/or bleeding. Alternative means of evaluation and treatment include, among others: physical exam, x-rays, and/or surgical intervention. The patient elects to proceed with this endoscopic procedure. DESCRIPTION OF PROCEDURE: During intra-op preparation period all mechanical medical equipment was checked for proper function. Hand hygiene and appropriate measures for infection prevention was taken. Procedure, possible complications, and alternatives including but not limited to the possibility of bleeding, perforation, tear, infection, sepsis, need for surgery, need for blood transfusion, and anesthesia related complications were explained to the patient. After the risks, benefits and alternatives of the procedure were thoroughly explained, Informed consent was verified, confirmed and timeout was successfully executed by the treatment team. The patient was placed in the left lateral position. The patient was anesthetized with topical anesthesia. Through the anesthetized oropharyngeal area, the scope was passed without any difficulty. The EG-2990i ([id number]) endoscope was introduced through the mouth and advanced to the second portion of the duodenum. Retroflexed views revealed no abnormalities. The gastroscope was then slowly withdrawn and removed. Grade II varices were found in the lower esophagus. Esophageal banding was performed. Moderate gastritis was found in the total stomach. Scattered 2-5 mm inflammatory erythematous nodules with minute amounts of fresh heme were found in the body of the stomach > antrum. ADVERSE EVENTS: There were no complications. IMPRESSIONS: 1. Three columns of grade II varices in the lower to mid esophagus, s/p 4 bandings 2. Moderate gastritis in the total stomach 3. Scattered 2-5 mm inflammatory erythematous nodules with minute amounts of fresh heme in the body of the stomach > antrum RECOMMENDATIONS: REPEAT EXAM: Shailesh Lazcano Dr eSigned: Shailesh Lazcano Dr 11/02/2020 9:29 AM cc: CPT CODES: ICD9 CODES: PATIENT NAME: Adry De Guzman MR#: [id number]
[2020-11-02 09:42] VITALS: TEMP 98.1; O2SAT 95
[2020-11-02 09:43] VITALS: BP 155/65
== END 2020-11-02 10:03 | disposition home or self-care (01) ==
LOC: OR 07:05
PROVIDERS: ATTEND Internal Medicine Gastroenterology
PROC: 06L38CZ Occlusion of Esophageal Vein with Extraluminal Device, Via Natural or Artificial Opening Endoscopic (ICD-10-PCS; principal; 2020-11-02 08:45)
DX: I85.00 Esophageal varices without bleeding (principal); E11.9 Type 2 diabetes mellitus without complications; E03.9 Hypothyroidism, unspecified; M81.0 Age-related osteoporosis without current pathological fracture; Z85.3 Personal history of malignant neoplasm of breast
CPT/HCPCS: 82947; 43244; J2704; J7030

== ENCOUNTER 2021-06-21 07:51 | Day surgery (SDC) | payer OTHER ==
[2021-06-21] MEDS ORDERED: NA CHLORIDE 0.9% 1,000 ML ONE (08:10)
[2021-06-21] MEDS ORDERED: LIDOCAINE 1% MPF 5 ML VIAL ONE (10:21)
[2021-06-21] MEDS ORDERED: propofoL 200 MG/20 ML VIAL IV ONE ×3 (10:21→11:13)
--- NOTE | 2021-06-21 11:11 | ENDO RPT ---
[address], [address] EGD PROCEDURE REPORT EXAM DATE: 06/21/2021 PATIENT NAME: Adry De Guzman MR#: [id number] BIRTHDATE: 1960 ATTENDING: Shailesh Lazcano Dr STATUS: outpatient UNDERWEAR CUTTER: Karol Burks CST and Bertha Polanco RN INDICATIONS: The patient is a 61 yr old Female here for an EGD due to surveillance PROCEDURE PERFORMED: EGD with biopsy and EGD with banding MEDICATIONS: Per Anesthesia. TOPICAL ANESTHETIC: none CONSENT: The patient understands the risks and benefits of the procedure and understands that these risks include, but are not limited to: sedation, allergic reaction, infection, perforation and/or bleeding. Alternative means of evaluation and treatment include, among others: physical exam, x-rays, and/or surgical intervention. The patient elects to proceed with this endoscopic procedure. DESCRIPTION OF PROCEDURE: During intra-op preparation period all mechanical medical equipment was checked for proper function. Hand hygiene and appropriate measures for infection prevention was taken. Procedure, possible complications, and alternatives including but not limited to the possibility of bleeding, perforation, tear, infection, sepsis, need for surgery, need for blood transfusion, and anesthesia related complications were explained to the patient. After the risks, benefits and alternatives of the procedure were thoroughly explained, Informed consent was verified, confirmed and timeout was successfully executed by the treatment team. The patient was placed in the left lateral position. The patient was anesthetized with topical anesthesia. Through the anesthetized oropharyngeal area, the scope was passed without any difficulty. The Pentax EG-2990i ([id number]) endoscope was introduced through the mouth and advanced to the second portion of the duodenum. Retroflexed views revealed no abnormalities. The gastroscope was then slowly withdrawn and removed. Three columns of grade II varices were found in the mid esophagus. Esophageal banding was performed X5. Mild atrophic gastritis was found in the body of the stomach. Six 3-6 mm sessile polyps (one friable and bleeding with abrasion of endoscope) were found in the body of the stomach, s/p biopsy. With standard forceps, a biopsy was obtained and sent to pathology. Moderate gastritis was found in the antrum. ADVERSE EVENTS: There were no complications. IMPRESSIONS: 1. Three columns of grade II varices in the mid esophagus, s/p banding X5 2. Mild atrophic gastritis in the body of the stomach 3. Six 3-6 mm sessile polyps (one friable and bleeding with abrasion of endoscope) in the body of the stomach, s/p biopsy 4. Moderate gastritis in the antrum RECOMMENDATIONS: 1. await biopsy results 2. acid suppression therapy 3. Coreg REPEAT EXAM: Return in 3 week(s) for EGD. Shailesh Lazcano Dr eSigned: Shailesh Lazcano Dr 06/21/2021 11:10 AM cc: Melinda Murillo M.D. CPT CODES: ICD9 CODES: PATIENT NAME: Adry De Guzman MR#: [id number]
--- NOTE | 2021-06-21 11:12 | ENDO RPT ---
[address], [address] EGD PROCEDURE REPORT EXAM DATE: 06/21/2021 PATIENT NAME: Adry De Guzman MR#: [id number] BIRTHDATE: 1960 ATTENDING: Shailesh Lazcano Dr STATUS: outpatient [employer]OB[employer]ES [employer]RAFT[employer] SALES REPRESENTATIVE: Karol Burks CST and Bertha Polanco RN INDICATIONS: The patient is a 61 yr old Female here for an EGD due to esophageal varices surveillance, history of liver cirrhosis PROCEDURE PERFORMED: EGD with biopsy and EGD with banding MEDICATIONS: Per Anesthesia. TOPICAL ANESTHETIC: none CONSENT: The patient understands the risks and benefits of the procedure and understands that these risks include, but are not limited to: sedation, allergic reaction, infection, perforation and/or bleeding. Alternative means of evaluation and treatment include, among others: physical exam, x-rays, and/or surgical intervention. The patient elects to proceed with this endoscopic procedure. DESCRIPTION OF PROCEDURE: During intra-op preparation period all mechanical medical equipment was checked for proper function. Hand hygiene and appropriate measures for infection prevention was taken. Procedure, possible complications, and alternatives including but not limited to the possibility of bleeding, perforation, tear, infection, sepsis, need for surgery, need for blood transfusion, and anesthesia related complications were explained to the patient. After the risks, benefits and alternatives of the procedure were thoroughly explained, Informed consent was verified, confirmed and timeout was successfully executed by the treatment team. The patient was placed in the left lateral position. The patient was anesthetized with topical anesthesia. Through the anesthetized oropharyngeal area, the scope was passed without any difficulty. The Pentax EG-2990i ([id number]) endoscope was introduced through the mouth and advanced to the second portion of the duodenum. Retroflexed views revealed no abnormalities. The gastroscope was then slowly withdrawn and removed. Three columns of grade II varices were found in the mid esophagus. Esophageal banding was performed X5. Mild atrophic gastritis was found in the body of the stomach. Six 3-6 mm sessile polyps (one friable and bleeding with abrasion of endoscope) were found in the body of the stomach, s/p biopsy. With standard forceps, a biopsy was obtained and sent to pathology. Moderate gastritis was found in the antrum. ADVERSE EVENTS: There were no complications. IMPRESSIONS: 1. Three columns of grade II varices in the mid esophagus, s/p banding X5 2. Mild atrophic gastritis in the body of the stomach 3. Six 3-6 mm sessile polyps (one friable and bleeding with abrasion of endoscope) in the body of the stomach, s/p biopsy 4. Moderate gastritis in the antrum RECOMMENDATIONS: 1. await biopsy results 2. acid suppression therapy 3. Coreg REPEAT EXAM: Return in 3 week(s) for EGD. Shailesh Lazcano Dr eSigned: Shailesh Lazcano Dr 06/21/2021 11:12 AM Revised: 06/21/2021 11:12 AM cc: Melinda Murillo M.D. CPT CODES: ICD9 CODES: PATIENT NAME: Adry De Guzman MR#: [id number]
--- NOTE | 2021-06-21 11:36 | ENDO RPT ---
[address], [address] COLONOSCOPY PROCEDURE REPORT EXAM DATE: 06/21/2021 PATIENT NAME: Adry De Guzman MR #: [id number] BIRTHDATE: 1960 ATTENDING: Shailesh Lazcano Dr STATUS: outpatient COMMISSION ASSOCIATE: Bertha Polanco RN and Karol Burks CST INDICATIONS: The patient is a 61 yr old Female here for a colonoscopy due to personal history of colon polyps and family history of colon polyps - mother PROCEDURE PERFORMED: Colonoscopy MEDICATIONS: Per Anesthesia. ESTIMATED BLOOD LOSS: None CONSENT: The patient understands the risks and benefits of the procedure and understands that these risks include, but are not limited to: sedation, allergic reaction, infection, perforation and/or bleeding. Alternative means of evaluation and treatment include, among others: physical exam, x-rays, and/or surgical intervention. The patient elects to proceed with this endoscopic procedure. DESCRIPTION OF PROCEDURE: During intra-op preparation period all mechanical medical equipment was checked for proper function. Hand hygiene and appropriate measures for infection prevention was taken. Procedure, possible complications, alternatives including, but not limited to possibility of bleeding, perforation, tear, infection, sepsis, need for surgery, need for blood transfusion, were explained to the patient. After the risks, benefits and alternatives of the procedure were thoroughly explained, Informed consent was verified, confirmed and timeout was successfully executed by the treatment team. The patient was placed in the left lateral position. A digital rectal exam was performed and revealed small external hemorrhoids. After appropriate level of anesthesia, the scope was passed. The EC-[id number] ([id number]) and [id number] ([id number]) endoscope was introduced through the anus and advanced to the terminal ileum which was intubated for a short distance. The quality of the prep was good. The instrument was then slowly withdrawn as the colon was fully examined. Scope withdrawal time was 9 minutes. COLON FINDINGS: A spider-like arteriovenous malformation measuring 4mm in size was found at the cecum. A round arteriovenous malformation measuring 5mm in size was found in the ascending colon. Mild diverticulosis was noted in the sigmoid colon. Small internal and external hemorrhoids were found. Retroflexed views revealed small hemorrhoids. The scope was then completely withdrawn from the patient and the procedure terminated. ADVERSE EVENTS: There were no complications. IMPRESSIONS: 1. 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 5 mm non-bleeding AVM in the mid ascending colon 3. Mild diverticulosis in the sigmoid colon 4. Small internal and external hemorrhoids 5. Intubation to terminal ileum 6. Personal history of colon polyps 7. Family history of colon polyps in mother RECOMMENDATIONS: 1. fiber rich diet 2. hemorrhoidal hygiene RECALL: Return in 3 year(s) for Colonoscopy. Shailesh Lazcano Dr eSigned: Shailesh Lazcano Dr 06/21/2021 11:35 AM cc: Melinda Murillo M.D. CPT CODES: ICD9 CODES: 455.5 External hemorrhoids with other complication PATIENT NAME: Adry De Guzman MR#: [id number]
[2021-06-21 14:25] VITALS: TEMP 97.1
[2021-06-21 14:28] VITALS: BP 127/57; O2SAT 99
== END 2021-06-21 12:05 | disposition home or self-care (01) ==
LOC: OR 07:51
PROVIDERS: ATTEND Internal Medicine Gastroenterology
PROC: 06L38CZ Occlusion of Esophageal Vein with Extraluminal Device, Via Natural or Artificial Opening Endoscopic (ICD-10-PCS; 2021-06-21)
PROC: 0DJD8ZZ Inspection of Lower Intestinal Tract, Via Natural or Artificial Opening Endoscopic (ICD-10-PCS; principal; 2021-06-21 09:30)
PROC: 0DB68ZX Excision of Stomach, Via Natural or Artificial Opening Endoscopic, Diagnostic (ICD-10-PCS; 2021-06-21 09:30)
DX: Z86.010 Personal history of colon polyps (principal); Z83.71 Family history of colonic polyps; K63.5 Polyp of colon; K64.4 Residual hemorrhoidal skin tags; K64.8 Other hemorrhoids; K57.30 Diverticulosis of large intestine without perforation or abscess without bleeding; Q27.39 Arteriovenous malformation, other site; I85.00 Esophageal varices without bleeding; K74.60 Unspecified cirrhosis of liver; Z20.822 Contact with and (suspected) exposure to COVID-19
CPT/HCPCS: 88312; 82947; 88305; 45378; 43239; 43244; U0003; J2704 ×3; J7030

== ENCOUNTER 2021-10-17 19:12 | Observation (INO) | payer OTHER ==
--- OUTSIDE RECORDS SUMMARY | 2021-10-17 19:20 | XMS REPORT | Continuity of Care Document ---
:[address] [facility] t Address [address] [place] [address] Care Team Providers Name Role Phone MARGE OLIVAS Primary Care Physician Unavailable Patricia Olivas Attending Clinician Unavailable Neno, H Attending Clinician Unavailable ALYCE Attending Clinician Unavailable ANENE Attending Clinician Unavailable ANNI LOPEZ Attending Clinician Unavailable Dutch PONCE Attending Clinician DUTCH Attending Clinician Unavailable Doctor Unassigned, Name Attending Clinician Unavailable Anni Lopez MD Attending Clinician BALWINDER Attending Clinician Unavailable GRAMM, A Attending Clinician Unavailable Gramm HOT PLATE PRESS OPERATOR, A Attending Clinician Hilton MCLAIN Attending Clinician Unavailable HORTENCIA Attending Clinician Unavailable Lab, Fam Pob I Attending Clinician Unavailable Nahun PONCE Attending Clinician Hortencia PARNELL Attending Clinician Mateo PONCE Attending Clinician MATEO Attending Clinician Unavailable Svetlana SALMERON Attending Clinician Unavailable Faviola PONCE, S Attending Clinician Patricia WEST Attending Clinician Unavailable Patricia West MD Attending Clinician Unknown Attending Clinician Unavailable Yadira Admitting Clinician Unavailable Olivas, Marge Admitting Clinician Unavailable Payers Payer Name Policy Type Policy Number Effective Date Expiration Date Svetlana burnett [facility] [id number] 2017 00:00:00 PLUS Problems Condition Condition Condition Status Onset Resolution Last Treating Co mments Source Name Details Category Date Date Treatment Clinician Date Postmenopa Postmenopa Disease Active U nivers usal usal 7-23 ity of bleeding bleeding 00:00: [place] 00 Medical Branch Right Right Disease Active Univers medial medial 5-19 [place] of [place] pain [place] Right Right Disease Active [facility] medial medial 5-19 [place] of [place] pain [place] Breast Breast Disease Active Overview: Univer s cancer in cancer in 07-10 Formattin i ty of situ situ 00:00: g of this [place] 00 note Medical might be Branch different from the original. [facility]- 07/14/13: Unilatera l left breast consultat ion completed . Encounter Encounter Disease Active 2012-05 Overview: Univers for for 05-27 Formattin ity of routine routine 00:00: g of this [place] gynecologi gynecologi 00 note Me dical miki miki might be Branch examinatio examinatio different n n from the original. [facility]: Stereosta tic guided biopsy. Impressio n: Calcifica tions in the left breast at 12 o'clock. Patho: malignant ductal carcinoma in situ.Path o report: 07/02/13. Left breast at 12 o'clock- two small foci of intraduct al carcinoma , solid pattern with associate d calcifica tions, high nuclear grade. No invasive malignanc y noted. Addendum to previous report- 4. Impressio n of bilateral breast USG. No sonograph ic evidence of malignanc y. Calcifica tions in the left central breast and tissues are probably fat necrosis. Stereotat ic guided core needle biopsy of the dominant cluster of the new calcifica tions is recommend ed. Left breast- 5 o'clock 2cm from the nipple 0.4 x 0.6cm collocate d cyst without interval change since 2. There is no solid mass in the left breast. Medical records received. DOS: 4. Breast USG- Impressio n: suspiciou s of malignanc y. There are new calcifica tions in the left central breast and also in tissues underlyin g the biopsy site which are probably fat necrosis. Sterostac ic guided core needle biopsy of the dominant left central cluster of new calcifica tions is recommend ed and this was discussed with the patient. Bilateral mammogram : 2 new clusters of calcifica tions in the left upper outer quadrant. Sterostac tic needle biopsy recommend ed. See scanned results. 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 ICD10 Diagnosis Term Associate Teacher Utility Morbid Morbid Disease Active 2012-05 Univers obesity obesity 1-15 ity of 00:00: Medical Branch Allergies, Adverse Reactions, Alerts Allergy Allergy Status Severity Reaction(s) Onset Inactive Treating Comm ents Source Name Type Date Date Clinician lisinopr DA Active U 2019- [facility] [place] 00:00: d 00 [facility] lisinopr DA Active U COUGH 2019-05 [facility] 0-30 [place] 00:00: d 00 [facility] Lisinopr Propensi Active Cough Univer s il ty to 5-19 ity of adverse 00:00: [place] reaction 00 Medical s Branch LISINOPR DRUG Active COUGH Univers IL INGREDI 5-19 ity of 00:00: 00 Medical Branch Lisinopr Propensi Active Other - See coughing Univers il ty to comments 1-11 ity of adverse 00:00: [place] reaction 00 Medical s Branch LISINOPR DRUG Active Med COUGH Univers IL INGREDI 1-11 ity of 00:00: [place] [facility] Lisinopr Adverse Active Info Not Commo n il Reaction Available Spiri t - [facility] Social History Social Habit Start Date Stop Date Quantity Comments Source Exposure to Not sure University of SARS-CoV-2 [place] Medical (event) Branch History of Cigarette Smoker Universi ty of tobacco use [facility] Alcohol intake 2021-03-28 2021-03-28 Current University of 00:00:00 00:00:00 non-drinker of [facility] alcohol (finding) Branch Tobacco use and 2017-12-13 2017-12-13 Never used Universit y of exposure 00:00:00 00:00:00 [facility] Tobacco Comment 2013-03-27 2013-03-27 smokes one Universit y of 00:00:00 00:00:00 cigarette per [place] [facility] Branch Sex [birth year] Universit y of 00:00:00 00:00:00 [facility] Smoking Status Start Date Stop Date Source Former smoker 2017-12-13 00:00:00 2017-12-13 00:00:00 Universi ty of [facility] Medications Ordered Filled Start Stop Current Ordering Indication Dosage Frequency Signature Comments Components Source Medication Medication Date Date Medication? Clinician (SIG) Name Name Calcium 2020-05 Yes Take by Univer s Carb-Cholec 1-16 mouth. ity of alciferol 11:07: [place] (CALCIUM 49 Medical 600 + D,3,) Branch 600 mg(1,500mg) -200 unit Tab Nebulizer 2020-05 Yes [id number] Use as U nivers Accessories 1-16 directed ity of Kit 00:00: [place] 00 [facility] Branch albuterol 2020-05 Yes [id number] 2.5mg Inhale 3 Univers 2.5 mg /3 1-16 mL every 4 ity of mL (0.083 00:00: (four) [place] %) 00 hours as Medical nebulizer needed for Bran ch solution Wheezing or Shortness of Breath. guaiFENesin 2020-05 Yes [id number] 400mg Take 1 Univers 400 mg 1-16 tablet by ity of tablet 00:00: mouth [place] 00 every 4 Medical (four) Branch hours as needed for Cough. promethazin 2020-05 Yes [id number] 5mL Take 5 mL Univers e-dextromet 1-16 by mouth 4 it y of horphan 00:00: (four) [place] 6.25-15 00 times Medical mg/5 mL daily as Branch syrup needed for Cough. bromphenira 2020-05 Yes [id number] 5mL Take 5 mL Univers mine-pseudo 1-16 by mouth 4 it y of ephedrine-D 00:00: (four[place] (BROMFED 00 times Medical DM) 2-30-10 daily as Bran ch mg/5 mL needed for syrup Congestion /Allergies . Diclofenac 2020-05 Yes [id number] Apply to Univers Sodium 1-16 area(s) 4 ity of (VOLTAREN) 00:00: (four) [place] 1 % gel 00 times Medical daily. 5g Branch QID cyclobenzap 2020-05 Yes [id number] 5mg Take 1 Univers rine 5 mg 1-16 tablet by ity o f tablet 00:00: mouth at [place] 00 bedtime. Medical Branch miSOPROStoL Yes 200ug Take 1 Uni vers (CYTOTEC) 8- tablet by ity o f 200 mcg 00:00: mouth [place] tablet 00 daily. Medical Take 1 Branch tablet by mouth the night before the procedure and 1 tablet by mouth the morning of the procedure. miSOPROStoL 2020- No 200ug Take 1 Un ag[place]ila (CYTOTEC) 8 08-12 tablet by ity of 200 mcg 00:00: 00:00 mouth [place] tablet 00 :00 daily. Medical Take 1 Branch tablet by mouth the night before the procedure and 1 tablet by mouth the morning of the procedure. miSOPROStoL 2020- No 200ug Take 1 Un [place] (CYTOTEC) 12-14-12 tablet by ity of 200 mcg 00:00: 00:00 mouth [place] tablet 00 :00 daily. Medical Take 1 Branch tablet by mouth the night before the procedure and 1 tablet by mouth the morning of the procedure. cephALEXin 2019-05 2020- No [id number] 500mg Take 2 Univers 250 mg 2- 12-09 capsules ity of capsule 00:00: 05:59 by mouth [place] 00 :00 every 12 Medical (twelve) Branch hours for 5 days. cephALEXin 2019-05 2020- No [id number] 500mg Take 2 Univers 250 mg 2- 12-09 capsules ity of capsule 00:00: 05:59 by mouth [place] 00 :00 every 12 Medical (twelve) Branch hours for 5 days. cephALEXin 2020- 2020- No [id number] 500mg Take 2 Univers 250 mg 2- 12-09 capsules ity of capsule 00:00: 05:59 by mouth [place] 00 :00 every 12 Medical (twelve) Branch hours for 5 days. clotrimazol 2020- Yes Apply to U nivers e 1 % 1-19 area(s) 2 ity of topical 00:00: (two) [place] cream 00 times Medical daily. Branch clotrimazol 2020- Yes Apply to U nivers e 1 % 1-19 area(s) 2 ity of topical 00:00: (two) [place] cream 00 times Medical daily. Branch clotrimazol 2020- Yes Apply to U nivers e 1 % 1-19 area(s) 2 ity of topical 00:00: (two) [place] cream 00 times Medical daily. Branch clotrimazol 2020- Yes Apply to U nivers e 1 % 1-19 area(s) 2 ity of topical 00:00: (two) [place] cream 00 times Medical daily. Branch clotrimazol 2020- Yes Apply to U nivers e 1 % 1-19 area(s) 2 ity of topical 00:00: (two) [place] cream 00 times Medical daily. Branch clotrimazol 2020- Yes Apply to U nivers e 1 % 1-19 area(s) 2 ity of topical 00:00: (two) [place] cream 00 times Medical daily. Branch clotrimazol 2020- Yes Apply to U nivers e 1 % 1-19 area(s) 2 ity of topical 00:00: (two) [place] cream 00 times Medical daily. Branch clotrimazol 2020- Yes Apply to U nivers e 1 % 1-19 area(s) 2 ity of topical 00:00: (two) [place] cream 00 times Medical daily. Branch clotrimazol 2020-1 Yes Apply to U nivers e 1 % 1-19 area(s) 2 ity of topical 00:00: (two) [place] cream 00 times Medical daily. Branch clotrimazol 2020- Yes Apply to U nivers e 1 % 1-19 area(s) 2 ity of topical 00:00: (two) [place] cream 00 times Medical daily. Branch clotrimazol 2019-05 Yes Apply to U nivers e 1 % 1-19 area(s) 2 ity of topical 00:00: (two) [place] cream 00 times Medical daily. Branch clotrimazol 2019-05 Yes Apply to U nivers e 1 % 1-19 area(s) 2 ity of topical 00:00: (two) [place] cream 00 times Medical daily. Branch clotrimazol 2019-05 Yes Apply to U nivers e 1 % 1-19 area(s) 2 ity of topical 00:00: (two) [place] cream 00 times Medical daily. Branch clotrimazol 2019-05 Yes Apply to U nivers e 1 % 1-19 area(s) 2 ity of topical 00:00: (two) [place] cream 00 times Medical daily. Branch carvedilol 2019-05- No 3.125mg Take 3.125 Univers (COREG) 1-10 11-10 mg by ity of 3.125 mg 20:44: 00:00 mouth 2 [place] tablet 28 :00 (two) [facility] daily with meals. carvedilol 2019-05- No 3.125mg Take 3.125 Univers (COREG) 1-10 11-10 mg by ity of 3.125 mg 20:44: 00:00 mouth 2 [place] tablet 28 :00 (two) [facility] daily with meals. esomeprazol 2019-05- No 40mg Take 40 mg Univers e (NEXIUM 1-10 11-10 by mouth ity o f PACKET) 40 20:44: 00:00 daily with [place] mg packet 21 :[address] [facility] esomeprazol 2019-05- No 40mg Take 40 mg Univers e (NEXIUM 1-10 11-10 by mouth ity o f PACKET) 40 20:44: 00:00 daily with [place] mg packet 21 :[address] [facility] esomeprazol 2019-05- No 40mg Take 40 mg Univers e 40 mg 1-10 11-10 by mouth ity of capsule 20:44: 00:00 daily with [place] as 12 :00 breakfast. [facility] esomeprazol 2019-05- No 40mg Take 40 mg Univers e 40 mg 1-10 11-10 by mouth ity of capsule 20:44: 00:00 daily with [place] as 12 :00 breakfast. Medical Branch furosemide 2019-05 2020- No 20mg Take 20 mg Univers (LASIX) 20 1-10 11-10 by mouth ity of mg tablet 20:44: 00:00 daily. [place] 09 :00 Medical Branch furosemide 2019-05 2020- No 20mg Take 20 mg Univers (LASIX) 20 1-10 11-10 by mouth ity of mg tablet 20:44: 00:00 daily. [place] 09 :00 Medical Branch POTASSIUM 2019- 2020- No 1{tbl} Take 1 Tab Univers CHLORIDE 1-10 11-10 by mouth ity of (KLOR-CON 20:43: 00:00 daily. [place] ORAL) 36 :00 Medical Branch POTASSIUM 2019- 2020- No 1{tbl} Take 1 Tab Univers CHLORIDE 1-10 11-10 by mouth ity of (KLOR-CON 20:43: 00:00 daily. [place] ORAL) 36 :00 Medical Branch triamcinolo 2019- Yes [id number] Apply to Univers ne 1-10 area(s) 2 ity of acetonide 00:00: (two) [place] 0.1 % cream 00 times Medical daily. Branch ketoconazol 2019- Yes [id number] Apply to Univers e 2 % cream 1-10 area(s) 2 ity of 00:00: (two) [place] 00 times Medical daily. Branch triamcinolo 2020- Yes [id number] Apply to Univers ne 1-10 area(s) 2 ity of acetonide 00:00: (two) [place] 0.1 % cream 00 times Medical daily. Branch ketoconazol 2019- Yes [id number] Apply to Univers e 2 % cream 1-10 area(s) 2 ity of 00:00: (two) [place] 00 times Medical daily. Branch triamcinolo 2019- Yes [id number] Apply to Univers ne 1-10 area(s) 2 ity of acetonide 00:00: (two) [place] 0.1 % cream 00 times Medical daily. Branch ketoconazol 2020- Yes [id number] Apply to Univers e 2 % cream 1-10 area(s) 2 ity of 00:00: (two) [place] 00 times Medical daily. Branch triamcinolo 2020- Yes [id number] Apply to Univers ne 1-10 area(s) 2 ity of acetonide 00:00: (two) [place] 0.1 % cream 00 times Medical daily. Branch triamcinolo 2020-1 Yes [id number] Apply to Univers ne 1-10 area(s) 2 ity of acetonide 00:00: (two) [place] 0.1 % cream 00 times Medical daily. Branch triamcinolo 2020-1 Yes [id number] Apply to Univers ne 1-10 area(s) 2 ity of acetonide 00:00: (two) [place] 0.1 % cream 00 times Medical daily. Branch triamcinolo 2020-1 Yes [id number] Apply to Univers ne 1-10 area(s) 2 ity of acetonide 00:00: (two) [place] 0.1 % cream 00 times Medical daily. Branch triamcinolo 2020-1 Yes [id number] Apply to Univers ne 1-10 area(s) 2 ity of acetonide 00:00: (two) [place] 0.1 % cream 00 times Medical daily. Branch triamcinolo 2020-1 Yes [id number] Apply to Univers ne 1-10 area(s) 2 ity of acetonide 00:00: (two) [place] 0.1 % cream 00 times Medical daily. Branch triamcinolo 2020-1 Yes [id number] Apply to Univers ne 1-10 area(s) 2 ity of acetonide 00:00: (two) [place] 0.1 % cream 00 times Medical daily. Branch triamcinolo 2020-1 Yes [id number] Apply to Univers ne 1-10 area(s) 2 ity of acetonide 00:00: (two) [place] 0.1 % cream 00 times Medical daily. Branch triamcinolo 2020-1 Yes [id number] Apply to Univers ne 1-10 area(s) 2 ity of acetonide 00:00: (two) [place] 0.1 % cream 00 times Medical daily. Branch triamcinolo 2020-1 Yes [id number] Apply to Univers ne 1-10 area(s) 2 ity of acetonide 00:00: (two) [place] 0.1 % cream 00 times Medical daily. Branch triamcinolo 2020-1 Yes [id number] Apply to Univers ne 1-10 area(s) 2 ity of acetonide 00:00: (two) [place] 0.1 % cream 00 times Medical daily. Branch triamcinolo 2019- Yes [id number] Apply to Univers ne 1-10 area(s) 2 ity of acetonide 00:00: (two) [place] 0.1 % cream 00 times Medical daily. Branch triamcinolo 2020- Yes [id number] Apply to Univers ne 1-10 area(s) 2 ity of acetonide 00:00: (two) [place] 0.1 % cream 00 times Medical daily. Branch triamcinolo 2019- Yes [id number] Apply to Univers ne 1-10 area(s) 2 ity of acetonide 00:00: (two) [place] 0.1 % cream 00 times Medical daily. Branch ketoconazol 2019-05 2020- No [id number] Apply to Univers e 2 % cream -02 20-19 area(s) 2 it y of 00:00: 00:00 (two) [place] 00 :00 times Medical daily. Branch SERTraline 2019-05 Yes Univers 50 mg 0-06 ity of tablet 00:00: [place] [facility] SERTraline 2020- Yes Univers 50 mg 0-06 ity of tablet 00:00: [place] [facility] SERTraline 2020- Yes Univers 50 mg 0-06 ity of tablet 00:00: [place] [facility] SERTraline 2020- Yes Univers 50 mg 0-06 ity of tablet 00:00: [place] [facility] SERTraline 2020- Yes Univers 50 mg 0-06 ity of tablet 00:00: [place] [facility] SERTraline 2020- Yes Univers 50 mg 0-06 ity of tablet 00:00: [place] [facility] SERTraline 2020- Yes Univers 50 mg 0-06 ity of tablet 00:00: [place] [facility] SERTraline 2020- Yes Univers 50 mg 0-06 ity of tablet 00:00: [place] [facility] SERTraline 2020- Yes Univers 50 mg 0-06 ity of tablet 00:00: [place] [facility] SERTraline 2020- Yes Univers 50 mg 0-06 ity of tablet 00:00: [place] [facility] SERTraline 2020- Yes Univers 50 mg 0-06 ity of tablet 00:00: [place] [facility] SERTraline 2020- Yes Univers 50 mg 0-06 ity of tablet 00:00: [address] SERTraline 2020-1 Yes Univers 50 mg 0-06 ity of tablet 00:00: Medical [place] SERTraline 2020- Yes Univers 50 mg 0-06 ity of tablet 00:00: [facility] SERTraline 2020-1 Yes Univers 50 mg 0-06 ity of tablet 00:00: [facility] Branch SERTraline 2020-1 Yes Univers 50 mg 0-06 ity of tablet 00:00: [facility] SERTraline 2019- Yes Univers 50 mg 0-06 ity of tablet 00:00: [facility] Macrobid Macrobid 2019-0 2020- No Na Olivas 1 capsule Common 01-12 with food [facility] 00:00: 00:00 - [facility] 00 :00 [facility] Sertraline Sertraline 2019-0 Yes Na Olivas 1 tablet Common HCl HCl 4-30 [facility] 00:00: - [facility] methylPREDN 2020-0 Yes [id number] 84mg Take 21 Univers ISolone 3-05 tablets by ity of (MEDROL, 00:00: mouth [place] RADHA,) 4 mg 00 SEE-INSTRU Med ical tablets CTIONS. Branch follow package directions methylPREDN 2020-0 Yes [id number] 84mg Take 21 Univers ISolone 3-05 tablets by ity of (MEDROL, 00:00: mouth [place] RADHA,) 4 mg 00 SEE-INSTRU Med ical tablets CTIONS. Branch follow package directions methylPREDN 2020-0 Yes [id number] 84mg Take 21 Univers ISolone 3-05 tablets by ity of (MEDROL, 00:00: mouth [place] RADHA,) 4 mg 00 SEE-INSTRU Med ical tablets CTIONS. Branch follow package directions methylPREDN 2020-0 Yes [id number] 84mg Take 21 Univers ISolone 3-05 tablets by ity of (MEDROL, 00:00: mouth [place] RADHA,) 4 mg 00 SEE-INSTRU Med ical tablets CTIONS. Branch follow package directions methylPREDN 2020-0 Yes [id number] 84mg Take 21 Univers ISolone 3-05 tablets by ity of (MEDROL, 00:00: mouth [place] RADHA,) 4 mg 00 SEE-INSTRU Med ical tablets CTIONS. Branch follow package directions methylPREDN 2020-0 Yes [id number] 84mg Take 21 Univers ISolone 3-05 tablets by ity of (MEDROL, 00:00: mouth [place] RADHA,) 4 mg 00 SEE-INSTRU Med ical tablets CTIONS. Branch follow package directions methylPREDN 2020-0 Yes [id number] 84mg Take 21 Univers ISolone 3-05 tablets by ity of (MEDROL, 00:00: mouth [place] RADHA,) 4 mg 00 SEE-INSTRU Med ical tablets CTIONS. Branch follow package directions methylPREDN 2020-0 Yes [id number] 84mg Take 21 Univers ISolone 3-05 tablets by ity of (MEDROL, 00:00: mouth [place] RADHA,) 4 mg 00 SEE-INSTRU Med ical tablets CTIONS. Branch follow package directions methylPREDN 2019-0 2020- No [id number] 84mg Take 21 Univers ISolone 3-05 11-10 tablets by ity o f (MEDROL, 00:00: 00:00 mouth [place] RADHA,) 4 mg 00 :00 SEE-INSTRU Med ical tablets CTIONS. Branch follow package directions methylPREDN 2019-0 2020- No [id number] 84mg Take 21 Univers ISolone 3-05 11-10 tablets by ity o f (MEDROL, 00:00: 00:00 mouth [place] RADHA,) 4 mg 00 :00 SEE-INSTRU Med ical tablets CTIONS. Branch follow package directions amoxicillin 2019-0 2020- No [id number] 500mg Take 1 Univers 500 mg 2-16 - capsule by ity of capsule 00:00: 05:59 mouth 2 [place] 00 :00 (two) Medical times Branch daily for 10 days. amoxicillin 2019-0 2020- No [id number] 500mg Take 1 Univers 500 mg 2-16 -16 tablet by ity of tablet 00:00: 00:00 mouth 2 [place] 00 :00 (two) Medical times Branch daily for 10 days. benzonatate 2020-0 Yes Univer s 100 mg 1-30 ity of capsule 00:00: [place] 00 Medical Branch HEMOCYTE-PL 2020-0 Yes Univer s US 106 mg 1-30 ity of iron- 1 mg 00:00: [place] Cap 00 Medical Branch loratadine 2020-0 Yes Univers 10 mg 1-30 ity of tablet 00:00: [place] 00 Medical Branch meclizine 2020-0 Yes Univers 25 mg 1-30 ity of tablet 00:00: [place] Medical Branch benzonatate 2020-0 Yes Univer s 100 mg 1-30 ity of capsule 00:00: [place] Medical Branch HEMOCYTE-PL 2020-0 Yes Univer s US 106 mg 1-30 ity of iron- 1 mg 00:00: [facility] 00 Medical Branch loratadine 2020-0 Yes Univers 10 mg 1-30 ity of tablet 00:00: [place] Medical Branch meclizine 2020-0 Yes Univers 25 mg 1-30 ity of tablet 00:00: [place] Medical Branch benzonatate 2020-0 Yes Univer s 100 mg 1-30 ity of capsule 00:00: [place] [address] Medical Branch HEMOCYTE-PL 2020-0 Yes Univer s US 106 mg 1-30 ity of iron- 1 mg 00:00: [facility] Medical Branch loratadine 2020-0 Yes Univers 10 mg 1-30 ity of tablet 00:00: [place] [address] Medical Branch meclizine 2020-0 Yes Univers 25 mg 1-30 ity of tablet 00:00: [place] [address] Medical Branch benzonatate 2020-0 Yes Univer s 100 mg 1-30 ity of capsule 00:00: [place] [address] Medical Branch HEMOCYTE-PL 2020-0 Yes Univer s US 106 mg 1-30 ity of iron- 1 mg 00:00: [facility] Medical Branch loratadine 2020-0 Yes Univers 10 mg 1-30 ity of tablet 00:00: [place] [address] Medical Branch meclizine 2020-0 Yes Univers 25 mg 1-30 ity of tablet 00:00: [place] [address] Medical Branch benzonatate 2020-0 Yes Univer s 100 mg 1-30 ity of capsule 00:00: [place] Medical Branch HEMOCYTE-PL 2020-0 Yes Univer s US 106 mg 1-30 ity of iron- 1 mg 00:00: [facility] Medical Branch loratadine 2020-0 Yes Univers 10 mg 1-30 ity of tablet 00:00: [place] [address] Medical Branch meclizine 2020-0 Yes Univers 25 mg 1-30 ity of tablet 00:00: [place] [address] Medical Branch benzonatate 2020-0 Yes Univer s 100 mg 1-30 ity of capsule 00:00: [place] [address] Medical Branch HEMOCYTE-PL 2020-0 Yes Univer s US 106 mg 1-30 ity of iron- 1 mg 00:00: [place] [facility] Medical Branch loratadine 2020-0 Yes Univers 10 mg 1-30 ity of tablet 00:00: [place] Medical Branch meclizine 2020-0 Yes Univers 25 mg 1-30 ity of tablet 00:00: [place] Medical Branch benzonatate 2020-0 Yes Univer s 100 mg 1-30 ity of capsule 00:00: [place] Medical Branch HEMOCYTE-PL 2020-0 Yes Univer s US 106 mg 1-30 ity of iron- 1 mg 00:00: [place] [facility] Medical Branch loratadine 2020-0 Yes Univers 10 mg 1-30 ity of tablet 00:00: [place] Medical Branch meclizine 2020-0 Yes Univers 25 mg 1-30 ity of tablet 00:00: [place] Medical Branch benzonatate 2020-0 Yes Univer s 100 mg 1-30 ity of capsule 00:00: [place] Medical Branch HEMOCYTE-PL 2020-0 Yes Univer s US 106 mg 1-30 ity of iron- 1 mg 00:00: [place] [facility] Medical Branch loratadine 2020-0 Yes Univers 10 mg 1-30 ity of tablet 00:00: [place] [facility] Branch meclizine 2020-0 Yes Univers 25 mg 1-30 ity of tablet 00:00: [place] Medical Branch HEMOCYTE-PL 2020-0 Yes Univer s US 106 mg 1-30 ity of iron- 1 mg 00:00: [place] [facility] Medical Branch loratadine 2020-0 Yes Univers 10 mg 1-30 ity of tablet 00:00: [place] [facility] Branch meclizine 2020-0 Yes Univers 25 mg 1-30 ity of tablet 00:00: [place] [facility] Branch HEMOCYTE-PL 2020-0 Yes Univer s US 106 mg 1-30 ity of iron- 1 mg 00:00: [place] [facility] Medical Branch loratadine 2020-0 Yes Univers 10 mg 1-30 ity of tablet 00:00: [place] [facility] Branch meclizine 2020-0 Yes Univers 25 mg 1-30 ity of tablet 00:00: [place] [facility] Branch HEMOCYTE-PL 2020-0 Yes Univer s US 106 mg 1-30 ity of iron- 1 mg 00:00: [place] [facility] Medical Branch loratadine 2020-0 Yes Univers 10 mg 1-30 ity of tablet 00:00: [place] [facility] Branch meclizine 2020-0 Yes Univers 25 mg 1-30 ity of tablet 00:00: [place] [facility] Branch HEMOCYTE-PL 2020-0 Yes Univer s US 106 mg 1-30 ity of iron- 1 mg 00:00: [place] [facility] Medical Branch loratadine 2020-0 Yes Univers 10 mg 1-30 ity of tablet 00:00: [place] [facility] meclizine 2020-0 Yes [facility] 25 mg 1-30 ity of tablet 00:00: [place] [facility] HEMOCYTE-PL 2020-0 Yes Univer s US 106 mg 1-30 ity of iron- 1 mg 00:00: [facility] loratadine 2020-0 Yes Univers 10 mg 1-30 ity of tablet 00:00: [place] [facility] meclizine 2020-0 Yes Univers 25 mg 1-30 ity of tablet 00:00: [place] [facility] HEMOCYTE-PL 2020-0 Yes Univer s US 106 mg 1-30 ity of iron- 1 mg 00:00: [place] [facility] loratadine 2020-0 Yes Univers 10 mg 1-30 ity of tablet 00:00: [place] [facility] meclizine 2020-0 Yes [facility] 25 mg 1-30 ity of tablet 00:00: [place] [facility] HEMOCYTE-PL 2020-0 Yes Univer s US 106 mg 1-30 ity of iron- 1 mg 00:00: [place] [facility] loratadine 2020-0 Yes [facility] 10 mg 1-30 ity of tablet 00:00: [place] [facility] meclizine 2020-0 Yes [facility] 25 mg 1-30 ity of tablet 00:00: [place] [facility] HEMOCYTE-PL 2020-0 Yes Univer s US 106 mg 1-30 ity of iron- 1 mg 00:00: [place] [facility] loratadine 2020-0 Yes Univers 10 mg 1-30 ity of tablet 00:00: [place] [facility] meclizine 2020-0 Yes [facility] 25 mg 1-30 ity of tablet 00:00: [place] [facility] HEMOCYTE-PL 2020-0 Yes Univer s US 106 mg 1-30 ity of iron- 1 mg 00:00: [place] [facility] loratadine 2020-0 Yes [facility] 10 mg 1-30 ity of tablet 00:00: [place] [facility] meclizine 2020-0 Yes [facility] 25 mg 1-30 ity of tablet 00:00: [place] [facility] HEMOCYTE-PL 2020-0 Yes Univer s US 106 mg 1-30 ity of iron- 1 mg 00:00: [place] [facility] loratadine 2020-0 Yes [facility] 10 mg 1-30 ity of tablet 00:00: [place] [facility] meclizine 2020-0 Yes [facility] 25 mg 1-30 ity of tablet 00:00: [place] [facility] HEMOCYTE-PL 2020-0 Yes Univer s US 106 mg 1-30 ity of iron- 1 mg 00:00: [place] [facility] loratadine 2020-0 Yes [facility] 10 mg 1-30 ity of tablet 00:00: [place] [facility] meclizine 2020-0 Yes [facility] 25 mg 1-30 ity of tablet 00:00: [place] [facility] HEMOCYTE-PL 2020-0 Yes Univer s US 106 mg 1-30 ity of iron- 1 mg 00:00: [place] [facility] loratadine 2020-0 Yes Univers 10 mg 1-30 ity of tablet 00:00: [place] [facility] meclizine 2020-0 Yes [facility] 25 mg 1-30 ity of tablet 00:00: [place] [facility] HEMOCYTE-PL 2020-0 Yes Univer s US 106 mg 1-30 ity of iron- 1 mg 00:00: [place] [facility] loratadine 2020-0 Yes Univers 10 mg 1-30 ity of tablet 00:00: [place] [facility] meclizine 2020-0 Yes [facility] 25 mg 1-30 ity of tablet 00:00: [place] [facility] HEMOCYTE-PL 2020-0 Yes Univer s US 106 mg 1-30 ity of iron- 1 mg 00:00: [place] [facility] loratadine 2020-0 Yes Univers 10 mg 1-30 ity of tablet 00:00: [place] [facility] meclizine 2020-0 Yes [facility] 25 mg 1-30 ity of tablet 00:00: [place] [facility] HEMOCYTE-PL 2020-0 Yes Univer s US 106 mg 1-30 ity of iron- 1 mg 00:00: [place] [facility] loratadine 2020-0 Yes [facility] 10 mg 1-30 ity of tablet 00:00: [place] 00 [facility] meclizine 2020-0 Yes [facility] 25 mg 1-30 ity of tablet 00:00: [place] [facility] HEMOCYTE-PL 2020-0 Yes Univer s US 106 mg 1-30 ity of iron- 1 mg 00:00: [facility] loratadine 2020-0 Yes Univers 10 mg 1-30 ity of tablet 00:00: [place] [address] [facility] Branch meclizine 2020-0 Yes [facility] 25 mg 1-30 ity of tablet 00:00: [place] [address] [facility] Branch HEMOCYTE-PL 2020-0 Yes Univer s US 106 mg 1-30 ity of iron- 1 mg 00:00: [facility] loratadine 2020-0 Yes Univers 10 mg 1-30 ity of tablet 00:00: [place] [address] [facility] Branch meclizine 2019-0 Yes [facility] 25 mg 1-30 ity of tablet 00:00: [place] [address] [facility] Branch benzonatate 2020-0 2020- No Unive rs 100 mg 1-30 11-10 ity of capsule 00:00: 00:00 [place] 00 :00 [facility] benzonatate 2020-0 2020- No Unive rs 100 mg 1-30 11-10 ity of capsule 00:00: 00:00 [place] 00 :00 [facility] Risedronate Risedronate 2020-0 2020- No Na Olivas 1 tablet Common Sodium Sodium 1-30 07-28 at least [facility] 00:00: 00:00 30 minutes - [facility] 00 :[address] [facility] or drink, Medical other than Center water, of the day ondansetron 2020-0 Yes Univer s 4 mg tablet 1-14 ity of 00:00: [place] [facility] ondansetron 2020-0 Yes Univer s 4 mg tablet 1-14 ity of 00:00: [place] 00 [facility] ondansetron 2020-0 Yes Univer s 4 mg tablet 1-14 ity of 00:00: [place] [address] [facility] Branch ondansetron 2020-0 Yes Univer s 4 mg tablet 1-14 ity of 00:00: [place] [address] [facility] Branch ondansetron 2020-0 Yes Univer s 4 mg tablet 1-14 ity of 00:00: [place] [address] [facility] Branch ondansetron 2020-0 Yes Univer s 4 mg tablet 1-14 ity of 00:00: [place] 00 [facility] ondansetron 2020-0 Yes Univer s 4 mg tablet 1-14 ity of 00:00: 00 Medical Branch ondansetron 2020-0 Yes Univer s 4 mg tablet 1-14 ity of 00:00: [place] 00 [facility] Branch ondansetron 2019-0 2020- No Unive rs 4 mg tablet 1-14 -10 ity of 00:00: 00:00 [place] 00 :00 Medical Branch ondansetron 2019-0 2020- No Unive rs 4 mg tablet -14 -10 ity of 00:00: 00:00 [place] 00 :00 Medical Branch Hemocyte Hemocyte 2018- Yes Na Olivas 1 capsule Common Plus Plus 0-18 Spirit 00:00: - [facility] 00 [facility] levothyroxi 2019- No 100ug Take 100 Univers ne 9-19 09-19 mcg by ity of (SYNTHROID) 19:52: [place] 100 [place]cg 11 :00 every Medical tablet morning. Branch levothyroxi 2019- No 100ug Take 100 Univers ne 9-19 09-19 mcg by ity of (SYNTHROID) 19:52: 00:00 [place] 100 [place]cg 11 :00 every Medical tablet morning. [place] esomeprazol Yes 40mg Take 40 mg Univers e (NEXIUM 9-19 by mouth ity of PACKET) 40 18:18: daily with [place] mg packet [address] [facility] esomeprazol Yes 40mg Take 40 mg Univers e (NEXIUM 9-19 by mouth ity of PACKET) 40 18:18: daily with [place] mg packet [address] [facility] esomeprazol Yes 40mg Take 40 mg Univers e (NEXIUM 9-19 by mouth ity of PACKET) 40 18:18: daily with [place] mg packet [address] [facility] esomeprazol Yes 40mg Take 40 mg Univers e (NEXIUM 9-19 by mouth ity of PACKET) 40 18:18: daily with [place] mg packet [address] [facility] esomeprazol Yes 40mg Take 40 mg Univers e (NEXIUM 9-19 by mouth ity of PACKET) 40 18:18: daily with [place] mg packet [address] [facility] esomeprazol Yes 40mg Take 40 mg Univers e (NEXIUM 9-19 by mouth ity of PACKET) 40 18:18: daily with [place] mg packet [address] [facility] esomeprazol Yes 40mg Take 40 mg Univers e (NEXIUM 9-19 by mouth ity of PACKET) 40 18:18: daily with [place] mg packet [address] [facility] esomeprazol Yes 40mg Take 40 mg Univers e (NEXIUM 9-19 by mouth ity of PACKET) 40 18:18: daily with [place] mg packet [address] [facility] esomeprazol Yes 40mg Take 40 mg Univers e (NEXIUM 9-19 by mouth ity of PACKET) 40 18:18: daily with [place] mg packet [address] [facility] esomeprazol Yes 40mg Take 40 mg Univers e (NEXIUM 9-19 by mouth ity of PACKET) 40 18:18: daily with [place] mg packet [address] [facility] esomeprazol Yes 40mg Take 40 mg Univers e (NEXIUM 9-19 by mouth ity of PACKET) 40 18:18: daily with [place] mg packet [address] [facility] miSOPROStol Yes Take 1 tab Univers 200 mcg 9-05 the ity of tablet 00:00: evening [place] 00 before Medical procedure Branch and 1 tab the morning of your procedure miSOPROStol Yes Take 1 tab Univers 200 mcg 9-05 the ity of tablet 00:00: evening [place] 00 before Medical procedure Branch and 1 tab the morning of your procedure miSOPROStol 2019- No Take 1 tab Univers 200 mcg 9-05 19 the ity of tablet 00:00: 00:00 evening [place] 00 :00 before Medical procedure Branch and 1 tab the morning of your procedure miSOPROStol 2019- No Take 1 tab Univers 200 mcg 9-05 01-29 the ity of tablet 00:00: 00:00 evening [place] 00 :00 before Medical procedure Branch and 1 tab the morning of your procedure miSOPROStol 2019-0 Yes 200ug Take 1 Uni vers 200 mcg 8-07 tablet by ity of tablet 00:00: mouth 4 [place] 00 (four) Medical times Branch daily. miSOPROStol 2019-0 Yes 200ug Take 1 Uni vers 200 mcg 8-07 tablet by ity of tablet 00:00: mouth 4 [place] 00 (four) Medical times Branch daily. miSOPROStol 2019- 2019- No 200ug Take 1 [place] 200 mcg 8-07 09-05 tablet by ity of tablet 00:00: 00:00 mouth 4 00 :00 (four) Medical times Branch daily. esomeprazol Yes 40mg Take 40 mg Univers e (NEXIUM 7-23 by mouth ity of PACKET) 40 14:35: daily with [place] mg packet [address] [facility] esomeprazol 2019 Yes 40mg Take 40 mg Univers e (NEXIUM 7-23 by mouth ity of PACKET) 40 14:35: daily with [place] mg packet [address] [facility] esomeprazol 2019-0 Yes 40mg Take 40 mg Univers e (NEXIUM 7-23 by mouth ity of PACKET) 40 14:35: daily with [place] mg packet [address] [facility] esomeprazol 2019-0 Yes 40mg Take 40 mg Univers e (NEXIUM 7-23 by mouth ity of PACKET) 40 14:35: daily with [place] mg packet [address] [facility] esomeprazol 2019-0 Yes 40mg Take 40 mg Univers e (NEXIUM 7-23 by mouth ity of PACKET) 40 14:35: daily with [place] mg packet [address] [facility] levothyroxi 2019-0 Yes 100ug Take 100 U nivers ne 6-13 mcg by ity of (SYNTHROID) 15:20: mouth [place] 100 mcg 07 every Medical tablet morning. Branch nadolol 40 0 Yes 40mg Take 40 mg U nivers mg tablet 6-13 by mouth ity of 15:20: daily. [address] Branch METFORMIN 2019-0 Yes 250mg Take 250 Uni vers HCL 6-13 mg by ity of (METFORMIN 15:20: mouth 2 [place] ORAL) (two) Medical times Branch daily. levothyroxi 2018-0 Yes 100ug Take 100 U nivers ne 6-13 mcg by ity of (SYNTHROID) 15:20: mouth [place] 100 mcg 07 every Medical tablet morning. Branch nadolol 40 2019-0 Yes 40mg Take 40 mg U nivers mg tablet 6-13 by mouth ity of 15:20: daily. [address] METFORMIN 2019-0 Yes 250mg Take 250 Uni vers HCL 6-13 mg by ity of (METFORMIN 15:20: mouth 2 [place] ORAL) 07 (two) Medical times Branch daily. nadolol 40 2019-0 Yes 40mg Take 40 mg U nivers mg tablet 6-13 by mouth ity of 15:20: daily. [address] METFORMIN 2019-0 Yes 250mg Take 250 Uni vers HCL 6-13 mg by ity of (METFORMIN 15:20: mouth 2 [place] ORAL) (two) Medical times Branch daily. nadolol 40 2019-0 Yes 40mg Take 40 mg U nivers mg tablet 6-13 by mouth ity of 15:20: daily. [address] METFORMIN 2019-0 Yes 250mg Take 250 Uni vers HCL 6-13 mg by ity of (METFORMIN 15:20: mouth 2 [place] ORAL) (two) Medical times Branch daily. nadolol 40 2019-0 Yes 40mg Take 40 mg U nivers mg tablet 6-13 by mouth ity of 15:20: daily. [address] METFORMIN 2019-0 Yes 250mg Take 250 Uni vers HCL 6-13 mg by ity of (METFORMIN 15:20: mouth 2 [place] ORAL) (two) Medical times Branch daily. nadolol 40 2019-0 Yes 40mg Take 40 mg U nivers mg tablet 6-13 by mouth ity of 15:20: daily. [address] METFORMIN 2019-0 Yes 250mg Take 250 Uni vers HCL 6-13 mg by ity of (METFORMIN 15:20: mouth 2 [place] ORAL) 07 (two) Medical times Branch daily. nadolol 40 2019-0 Yes 40mg Take 40 mg U nivers mg tablet 6-13 by mouth ity of 15:20: daily. [address] METFORMIN 2019-0 Yes 250mg Take 250 Uni vers HCL 6-13 mg by ity of (METFORMIN 15:20: mouth 2 [place] ORAL) 07 (two) Medical times Branch daily. nadolol 40 2019-0 Yes 40mg Take 40 mg U nivers mg tablet 6-13 by mouth ity of 15:20: daily. [address] METFORMIN 2019-0 Yes 250mg Take 250 Uni vers HCL 6-13 mg by ity of (METFORMIN 15:20: mouth 2 [place] ORAL) (two) Medical times Branch daily. nadolol 40 2019-0 Yes 40mg Take 40 mg U nivers mg tablet 6-13 by mouth ity of 15:20: daily. [address] METFORMIN 2019-0 Yes 250mg Take 250 Uni vers HCL 6-13 mg by ity of (METFORMIN 15:20: mouth 2 [place] ORAL) (two) Medical times Branch daily. nadolol 40 2019-0 Yes 40mg Take 40 mg U nivers mg tablet 6-13 by mouth ity of 15:20: daily. [address] METFORMIN 2019-0 Yes 250mg Take 250 Uni vers HCL 6-13 mg by ity of (METFORMIN 15:20: mouth 2 [place] ORAL) (two) Medical times Branch daily. nadolol 40 2019-0 Yes 40mg Take 40 mg U nivers mg tablet 6-13 by mouth ity of 15:20: daily. [address] METFORMIN 2019-0 Yes 250mg Take 250 Uni vers HCL 6-13 mg by ity of (METFORMIN 15:20: mouth 2 [place] ORAL) (two) Medical times Branch daily. nadolol 40 2019-0 Yes 40mg Take 40 mg U nivers mg tablet 6-13 by mouth ity of 15:20: daily. [address] METFORMIN 2019-0 Yes 250mg Take 250 Uni vers HCL 6-13 mg by ity of (METFORMIN 15:20: mouth 2 [place] ORAL) (two) Medical times Branch daily. nadolol 40 2019-0 Yes 40mg Take 40 mg U nivers mg tablet 6-13 by mouth ity of 15:20: daily. [address] METFORMIN 2019-0 Yes 250mg Take 250 Uni vers HCL 6-13 mg by ity of (METFORMIN 15:20: mouth 2 [place] ORAL) (two) Medical times Branch daily. nadolol 40 2019-0 Yes 40mg Take 40 mg U nivers mg tablet 6-13 by mouth ity of 15:20: daily. [address] METFORMIN 2019-0 Yes 250mg Take 250 Uni vers HCL 6-13 mg by ity of (METFORMIN 15:20: mouth 2 [place] ORAL) 07 (two) Medical times Branch daily. nadolol 40 2019-0 Yes 40mg Take 40 mg U nivers mg tablet 6-13 by mouth ity of 15:20: daily. [address] METFORMIN 2019-0 Yes 250mg Take 250 Uni vers HCL 6-13 mg by ity of (METFORMIN 15:20: mouth 2 [place] ORAL) 07 (two) Medical times Branch daily. nadolol 40 2019-0 Yes 40mg Take 40 mg U nivers mg tablet 6-13 by mouth ity of 15:20: daily. [address] METFORMIN 2019-0 Yes 250mg Take 250 Uni vers HCL 6-13 mg by ity of (METFORMIN 15:20: mouth 2 [place] ORAL) 07 (two) Medical times Branch daily. nadolol 40 2019-0 Yes 40mg Take 40 mg U nivers mg tablet 6-13 by mouth ity of 15:20: daily. [address] METFORMIN 2019-0 Yes 250mg Take 250 Uni vers HCL 6-13 mg by ity of (METFORMIN 15:20: mouth 2 [place] ORAL) (two) Medical times Branch daily. nadolol 40 2019-0 Yes 40mg Take 40 mg U nivers mg tablet 6-13 by mouth ity of 15:20: daily. [address] METFORMIN 2019-0 Yes 250mg Take 250 Uni vers HCL 6-13 mg by ity of (METFORMIN 15:20: mouth 2 [place] ORAL) 07 (two) Medical times Branch daily. levothyroxi 2019-0 Yes 100ug Take 100 U nivers ne 6-13 mcg by ity of (SYNTHROID) 15:20: mouth [place] 100 mcg 07 every Medical tablet morning. Branch nadolol 40 2019-0 Yes 40mg Take 40 mg U nivers mg tablet 6-13 by mouth ity of 15:20: daily. [address] METFORMIN 2019-0 Yes 250mg Take 250 Uni vers HCL 6-13 mg by ity of (METFORMIN 15:20: mouth 2 [place] ORAL) 07 (two) Medical times Branch daily. nadolol 40 2019-0 Yes 40mg Take 40 mg U nivers mg tablet 6-13 by mouth ity of 15:20: daily. [address] METFORMIN 2019-0 Yes 250mg Take 250 Uni vers HCL 6-13 mg by ity of (METFORMIN 15:20: mouth 2 [place] ORAL) 07 (two) Medical times Branch daily. nadolol 40 2019-0 Yes 40mg Take 40 mg U nivers mg tablet 6-13 by mouth ity of 15:20: daily. [address] nadolol 40 2019-0 Yes 40mg Take 40 mg U nivers mg tablet 6-13 by mouth ity of 15:20: daily. [address] METFORMIN 2019-0 Yes 250mg Take 250 Uni vers HCL 6-13 mg by ity of (METFORMIN 15:20: mouth 2 [place] ORAL) 07 (two) Medical times Branch daily. METFORMIN 2019-0 Yes 250mg Take 250 Uni vers HCL 6-13 mg by ity of (METFORMIN 15:20: mouth 2 [place] ORAL) (two) Medical times Branch daily. nadolol 40 2019-0 Yes 40mg Take 40 mg U nivers mg tablet 6-13 by mouth ity of 15:20: daily. [address] METFORMIN 2019-0 Yes 250mg Take 250 Uni vers HCL 6-13 mg by ity of (METFORMIN 15:20: mouth 2 [place] ORAL) (two) Medical times Branch daily. nadolol 40 2019-0 Yes 40mg Take 40 mg U nivers mg tablet 6-13 by mouth ity of 15:20: daily. [address] METFORMIN 2019-0 Yes 250mg Take 250 Uni vers HCL 6-13 mg by ity of (METFORMIN 15:20: mouth 2 [place] ORAL) (two) Medical times Branch daily. nadolol 40 2019-0 Yes 40mg Take 40 mg U nivers mg tablet 6-13 by mouth ity of 15:20: daily. [address] METFORMIN 2019-0 Yes 250mg Take 250 Uni vers HCL 6-13 mg by ity of (METFORMIN 15:20: mouth 2 [place] ORAL) (two) Medical times Branch daily. nadolol 40 2019-0 Yes 40mg Take 40 mg U nivers mg tablet 6-13 by mouth ity of 15:20: daily. [address] METFORMIN 2019-0 Yes 250mg Take 250 Uni vers HCL 6-13 mg by ity of (METFORMIN 15:20: mouth 2 [place] ORAL) (two) Medical times Branch daily. nadolol 40 2019-0 Yes 40mg Take 40 mg U nivers mg tablet 6-13 by mouth ity of 15:20: daily. [address] METFORMIN 2019-0 Yes 250mg Take 250 Uni vers HCL 6-13 mg by ity of (METFORMIN 15:20: mouth 2 [place] ORAL) 07 (two) Medical times Branch daily. nadolol 40 2019-0 Yes 40mg Take 40 mg U nivers mg tablet 6-13 by mouth ity of 15:20: daily. [address] Branch METFORMIN 2019-0 Yes 250mg Take 250 Uni vers HCL 6-13 mg by ity of (METFORMIN 15:20: mouth 2 [place] ORAL) 07 (two) Medical times Branch daily. nadolol 40 2019-0 Yes 40mg Take 40 mg U nivers mg tablet 6-13 by mouth ity of 15:20: daily. [address] METFORMIN 2019-0 Yes 250mg Take 250 Uni vers HCL 6-13 mg by ity of (METFORMIN 15:20: mouth 2 [place] ORAL) 07 (two) Medical times Branch daily. levothyroxi 2018-0 Yes 100ug Take 100 U nivers ne 6-13 mcg by ity of (SYNTHROID) 15:20: mouth [place] 100 mcg 07 every Medical tablet morning. Branch nadolol 40 Yes 40mg Take 40 mg U nivers mg tablet 6-13 by mouth ity of 15:20: daily. [address] METFORMIN 2019-0 Yes 250mg Take 250 Uni vers HCL 6-13 mg by ity of (METFORMIN 15:20: mouth 2 [place] ORAL) 07 (two) Medical times Branch daily. levothyroxi 2019-0 Yes 100ug Take 100 U nivers ne 6-13 mcg by ity of (SYNTHROID) 15:20: mouth [place] 100 mcg 07 every Medical tablet morning. Branch nadolol 40 20190 Yes 40mg Take 40 mg U nivers mg tablet 6-13 by mouth ity of 15:20: daily. [address] METFORMIN 2019-0 Yes 250mg Take 250 Uni vers HCL 6-13 mg by ity of (METFORMIN 15:20: mouth 2 [place] ORAL) 07 (two) Medical times Branch daily. esomeprazol 2019-0 Yes 40mg Take 40 mg Univers e 40 mg 6-13 by mouth ity of capsule 15:18: daily with [place] 52 breakfast. Medical Branch Calcium 2019-0 Yes Take by [employer] Carb-Cholec 6-13 mouth. ity of alciferol 15:18: [place] (CALCIUM 52 Medical 600 + D,3,) Branch 600 mg(1,500mg) -200 unit Tab esomeprazol 2019-0 Yes 40mg Take 40 mg Univers e 40 mg 6-13 by mouth ity of capsule 15:18: daily with [facility] breakfast. Medical Branch Calcium 0 Yes Take by [employer] [facility] Carb-Cholec 6-13 mouth. ity of alciferol 15:18: [place] (CALCIUM 52 Medical 600 + D,3,) Branch 600 mg(1,500mg) -200 unit Tab esomeprazol 2019-0 Yes 40mg Take 40 mg Univers e 40 mg 6-13 by mouth ity of capsule 15:18: daily with [place] breakfast. Medical Branch Calcium Yes Take by [employer] Carb-Cholec 6-13 mouth. ity of alciferol 15:18: [place] (CALCIUM 52 Medical 600 + D,3,) Branch 600 mg(1,500mg) -200 unit Tab esomeprazol 2018-0 Yes 40mg Take 40 mg Univers e 40 mg 6-13 by mouth ity of capsule 15:18: daily with [place] breakfast. Medical Branch Calcium 0 Yes Take by [employer] Carb-Cholec 6-13 mouth. ity of alciferol 15:18: [place] (CALCIUM 52 Medical 600 + D,3,) Branch 600 mg(1,500mg) -200 unit Tab esomeprazol 2018-0 Yes 40mg Take 40 mg Univers e 40 mg 6-13 by mouth ity of capsule 15:18: daily with [place] breakfast. Medical Branch Calcium 0 Yes Take by [employer] Carb-Cholec 6-13 mouth. ity of alciferol 15:18: [place] (CALCIUM 52 Medical 600 + D,3,) Branch 600 mg(1,500mg) -200 unit Tab esomeprazol 2018-0 Yes 40mg Take 40 mg Univers e 40 mg 6-13 by mouth ity of capsule 15:18: daily with [place] breakfast. Medical Branch Calcium 2018-0 Yes Take by [employer] [facility] Carb-Cholec 6-13 mouth. ity of alciferol 15:18: [place] (CALCIUM 52 Medical 600 + D,3,) Branch 600 mg(1,500mg) -200 unit Tab esomeprazol 2019-0 Yes 40mg Take 40 mg Univers e 40 mg 6-13 by mouth ity of capsule 15:18: daily with [place] breakfast. Medical Branch Calcium 2018-0 Yes Take by [employer] [facility] Carb-Cholec 6-13 mouth. ity of alciferol 15:18: [place] (CALCIUM 52 Medical 600 + D,3,) Branch 600 mg(1,500mg) -200 unit Tab esomeprazol 2019-0 Yes 40mg Take 40 mg Univers e 40 mg 6-13 by mouth ity of capsule 15:18: daily with [place] breakfast. Medical Branch Calcium 2018-0 Yes Take by [employer] [facility] Carb-Cholec 6-13 mouth. ity of alciferol 15:18: [place] (CALCIUM 52 Medical 600 + D,3,) Branch 600 mg(1,500mg) -200 unit Tab esomeprazol 2019-0 Yes 40mg Take 40 mg Univers e 40 mg 6-13 by mouth ity of capsule 15:18: daily with [place] breakfast. Medical Branch Calcium 2018-0 Yes Take by [employer] [facility] Carb-Cholec 6-13 mouth. ity of alciferol 15:18: [place] (CALCIUM 52 Medical 600 + D,3,) Branch 600 mg(1,500mg) -200 unit Tab esomeprazol 2019-0 Yes 40mg Take 40 mg Univers e 40 mg 6-13 by mouth ity of capsule 15:18: daily with [place] breakfast. Medical Branch Calcium 2018-0 Yes Take by [employer] [facility] Carb-Cholec 6-13 mouth. ity of alciferol 15:18: [place] (CALCIUM 52 Medical 600 + D,3,) Branch 600 mg(1,500mg) -200 unit Tab esomeprazol 2019-0 Yes 40mg Take 40 mg Univers e 40 mg 6-13 by mouth ity of capsule 15:18: daily with [place] breakfast. Medical Branch Calcium 2018-0 Yes Take by [employer] [facility] Carb-Cholec 6-13 mouth. ity of alciferol 15:18: [place] (CALCIUM 52 Medical 600 + D,3,) Branch 600 mg(1,500mg) -200 unit Tab esomeprazol 2019-0 Yes 40mg Take 40 mg Univers e 40 mg 6-13 by mouth ity of capsule 15:18: daily with [place] breakfast. Medical Branch Calcium 2019-0 Yes Take by [employer] Carb-Cholec 6-13 mouth. ity of alciferol 15:18: [place] (CALCIUM 52 Medical 600 + D,3,) Branch 600 mg(1,500mg) -200 unit Tab esomeprazol 2019-0 Yes 40mg Take 40 mg Univers e 40 mg 6-13 by mouth ity of capsule 15:18: daily with [place] breakfast. Medical Branch Calcium 2019-0 Yes Take by [email or web address] Carb-Cholec 6-13 mouth. ity of alciferol 15:18: [place] (CALCIUM 52 Medical 600 + D,3,) Branch 600 mg(1,500mg) -200 unit Tab esomeprazol 2019-0 Yes 40mg Take 40 mg Univers e 40 mg 6-13 by mouth ity of capsule 15:18: daily with [place] breakfast. Medical Branch Calcium 2018-0 Yes Take by [email or web address] Carb-Cholec 6-13 mouth. ity of alciferol 15:18: [place] (CALCIUM 52 Medical 600 + D,3,) Branch 600 mg(1,500mg) -200 unit Tab Calcium 2019-0 Yes Take by [email or web address] Carb-Cholec 6-13 mouth. ity of alciferol 15:18: [place] (CALCIUM 52 Medical 600 + D,3,) Branch 600 mg(1,500mg) -200 unit Tab Calcium 2019-0 Yes Take by [email or web address] Carb-Cholec 6-13 mouth. ity of alciferol 15:18: [place] (CALCIUM 52 Medical 600 + D,3,) Branch 600 mg(1,500mg) -200 unit Tab Calcium 2019-0 Yes Take by [email or web address] Carb-Cholec 6-13 mouth. ity of alciferol 15:18: [place] (CALCIUM 52 Medical 600 + D,3,) Branch 600 mg(1,500mg) -200 unit Tab Calcium 2019-0 Yes Take by [email or web address] Carb-Cholec 6-13 mouth. ity of alciferol 15:18: [place] (CALCIUM 52 Medical 600 + D,3,) Branch 600 mg(1,500mg) -200 unit Tab Calcium 2019-0 Yes Take by [facility] Carb-Cholec 6-13 mouth. ity of alciferol 15:18: [place] (CALCIUM 52 Medical 600 + D,3,) Branch 600 mg(1,500mg) -200 unit Tab Calcium 2019-0 Yes Take by [facility] [employer] Carb-Cholec 6-13 mouth. ity of alciferol 15:18: [place] (CALCIUM 52 Medical 600 + D,3,) Branch 600 mg(1,500mg) -200 unit Tab Calcium 2019-0 Yes Take by [employer] Carb-Cholec 6-13 mouth. ity of alciferol 15:18: [place] (CALCIUM 52 Medical 600 + D,3,) Branch 600 mg(1,500mg) -200 unit Tab Calcium 2019-0 Yes Take by [email or web address] Carb-Cholec 6-13 mouth. ity of alciferol 15:18: [place] (CALCIUM 52 Medical 600 + D,3,) Branch 600 mg(1,500mg) -200 unit Tab Calcium 2019-0 Yes Take by [email or web address] Carb-Cholec 6-13 mouth. ity of alciferol 15:18: [place] (CALCIUM 52 Medical 600 + D,3,) Branch 600 mg(1,500mg) -200 unit Tab esomeprazol 2019-0 Yes 40mg Take 40 mg Univers e 40 mg 6-13 by mouth ity of capsule 15:18: daily with [place] breakfast. Medical Branch Calcium 2019-0 Yes Take by [email or web address] Carb-Cholec 6-13 mouth. ity of alciferol 15:18: [place] (CALCIUM 52 Medical 600 + D,3,) Branch 600 mg(1,500mg) -200 unit Tab Calcium 2019-0 Yes Take by [email or web address] Carb-Cholec 6-13 mouth. ity of alciferol 15:18: [place] (CALCIUM 52 Medical 600 + D,3,) Branch 600 mg(1,500mg) -200 unit Tab Calcium 2019-0 Yes Take by [email or web address] Carb-Cholec 6-13 mouth. ity of alciferol 15:18: [place] (CALCIUM 52 Medical 600 + D,3,) Branch 600 mg(1,500mg) -200 unit Tab Calcium 2019-0 Yes Take by [email or web address] Carb-Cholec 6-13 mouth. ity of alciferol 15:18: [place] (CALCIUM 52 Medical 600 + D,3,) Branch 600 mg(1,500mg) -200 unit Tab Calcium 2019-0 Yes Take by [employer] Carb-Cholec 6-13 mouth. ity of alciferol 15:18: [place] (CALCIUM 52 Medical 600 + D,3,) Branch 600 mg(1,500mg) -200 unit Tab Calcium 2019-0 Yes Take by [employer] Carb-Cholec 6-13 mouth. ity of alciferol 15:18: [place] (CALCIUM 52 Medical 600 + D,3,) Branch 600 mg(1,500mg) -200 unit Tab Calcium 2018-0 Yes Take by [facility] Carb-Cholec 6-13 mouth. ity of alciferol 15:18: [place] (CALCIUM 52 Medical 600 + D,3,) Branch 600 mg(1,500mg) -200 unit Tab esomeprazol 2018-0 Yes 40mg Take 40 mg [facility] e 40 mg 6-13 by mouth [place] of capsule 15:18: [place] 52 breakfast. [facility] Branch Calcium 0 Yes Take by [employer] Carb-Cholec 6-13 mouth. ity of alciferol 15:18: [place] (CALCIUM 52 Medical 600 + D,3,) Branch 600 mg(1,500mg) -200 unit Tab nadolol 40 2019-0 Yes 40mg Take 40 mg U nivers mg tablet 6-13 by mouth ity of 10:20: daily. [address] Branch METFORMIN 2019-0 Yes 250mg Take 250 Uni vers HCL 6-13 mg by it[place] of (METFORMIN 10:20: [place] 2 [place]AL[place] 07 (two) Medical times Branch daily. nadolol 40 2019-0 Yes 40mg Take 40 mg U nivers mg tablet 6-13 by mouth ity of 10:20: daily. [address] METFORMIN 2019-0 Yes 250mg Take 250 Uni vers HCL 6-13 mg by ity of (METFORMIN 10:20: [place] 2 [place]AL[place] 07 (two) Medical times Branch daily. Calcium 2019-0 Yes Take by [employer] [facility] Carb-Cholec 6-13 mouth. ity of alciferol 10:18: [place] (CALCIUM 52 Medical 600 + D,3,) Branch 600 mg(1,500mg) -200 unit Tab traMADOL 50 2018-0 Yes TAKE 1 Univ ers mg tablet 6-05 TABLET BY ity o f 00:00: MOUTH [place] 00 EVERY 6 Medical HOURS Branch NEEDED FOR PAIN traMADOL 50 2019-0 Yes TAKE 1 Univ ers mg tablet 6-05 TABLET BY ity o f 00:00: MOUTH [place] 00 EVERY 6 Medical HOURS Branch NEEDED FOR PAIN traMADOL 50 2019-0 Yes TAKE 1 Univ ers mg tablet 6-05 TABLET BY ity o f 00:00: MOUTH [place] 00 EVERY 6 Medical HOURS Branch NEEDED FOR PAIN traMADOL 50 2019-0 Yes TAKE 1 Univ ers mg tablet 6-05 TABLET BY ity o f 00:00: MOUTH [place] 00 EVERY 6 Medical HOURS Branch NEEDED FOR PAIN traMADOL 50 2019-0 Yes TAKE 1 Univ ers mg tablet 6-05 TABLET BY ity o f 00:00: MOUTH [place] 00 EVERY 6 Medical HOURS Branch NEEDED FOR PAIN traMADOL 50 2019-0 Yes TAKE 1 Univ ers mg tablet 6-05 TABLET BY ity o f 00:00: MOUTH [place] 00 EVERY 6 Medical HOURS Branch NEEDED FOR PAIN traMADOL 50 2019-0 Yes TAKE 1 Univ ers mg tablet 6-05 TABLET BY ity o f 00:00: MOUTH [place] 00 EVERY 6 Medical HOURS Branch NEEDED FOR PAIN traMADOL 50 2019-0 Yes TAKE 1 Univ ers mg tablet 6-05 TABLET BY ity o f 00:00: MOUTH [place] 00 EVERY 6 Medical HOURS Branch NEEDED FOR PAIN traMADOL 50 2019-0 Yes TAKE 1 Univ ers mg tablet 6-05 TABLET BY ity o f 00:00: MOUTH [place] 00 EVERY 6 Medical HOURS Branch NEEDED FOR PAIN traMADOL 50 2019-0 Yes TAKE 1 Univ ers mg tablet 6-05 TABLET BY ity o f 00:00: MOUTH [place] 00 EVERY 6 Medical HOURS Branch NEEDED FOR PAIN traMADOL 50 2019-0 Yes TAKE 1 Univ ers mg tablet 6-05 TABLET BY ity o f 00:00: MOUTH [place] 00 EVERY 6 Medical HOURS Branch NEEDED FOR PAIN traMADOL 50 2019-0 Yes TAKE 1 Univ ers mg tablet 6-05 TABLET BY ity o f 00:00: MOUTH [place] 00 EVERY 6 Medical HOURS Branch NEEDED FOR PAIN traMADOL 50 2019-0 Yes TAKE 1 Univ ers mg tablet 6-05 TABLET BY ity o f 00:00: MOUTH [place] 00 EVERY 6 Medical HOURS Branch NEEDED FOR PAIN traMADOL 50 2019-0 Yes TAKE 1 Univ ers mg tablet 6-05 TABLET BY ity o f 00:00: MOUTH [place] 00 EVERY 6 Medical HOURS Branch NEEDED FOR PAIN traMADOL 50 2019-0 Yes TAKE 1 Univ ers mg tablet 6-05 TABLET BY ity o f 00:00: MOUTH [place] EVERY 6 Medical HOURS Branch NEEDED FOR PAIN traMADOL 50 Yes TAKE 1 Univ ers mg tablet 6-05 TABLET BY ity o f 00:00: MOUTH [place] EVERY 6 Medical HOURS Branch NEEDED FOR PAIN traMADOL 50 2018-0 2020- No TAKE 1 Uni vers mg tablet 6-05 11-10 TABLET BY ity of 00:00: 00:00 MOUTH [place] 00 :00 EVERY 6 Medical HOURS Branch NEEDED FOR PAIN traMADOL 50 0 2020- No TAKE 1 Uni vers mg tablet 6-05 11-10 TABLET BY ity of 00:00: 00:00 MOUTH [place] 00 :00 EVERY 6 Medical HOURS Branch NEEDED FOR PAIN Tramadol Tramadol Yes Na Olivas 1 tablet Common HCl HCl 6-04 as needed [facility] 00:00: - [facility] Keflex Keflex 2018-0 Yes Na Olivas 1 capsule C ommon 2-18 Spirit 00:00: - [facility] levothyroxi 2018-0 Yes 112ug Take 112 U nivers ne 112 mcg 7-23 mcg by ity of tablet 00:00: mouth. [place] [facility] [place] levothyroxi 20180 Yes 112ug Take 112 U nivers ne 112 mcg 7-23 mcg by ity of tablet 00:00: mouth. [place] [facility] levothyroxi 0 Yes 112ug Take 112 U nivers ne 112 mcg 7-23 mcg by ity of tablet 00:00: mouth. [place] [facility] levothyroxi 2018-0 Yes 112ug Take 112 U nivers ne 112 mcg 7-23 mcg by ity of tablet 00:00: mouth. [place] [facility] levothyroxi 2018-0 Yes 112ug Take 112 U nivers ne 112 mcg 7-23 mcg by ity of tablet 00:00: mouth. [place] [facility] [place] levothyroxi 2017-0 Yes 112ug Take 112 U nivers ne 112 mcg 7-23 mcg by ity of tablet 00:00: mouth. [place] [facility] levothyroxi 2017-0 Yes 112ug Take 112 U nivers ne 112 mcg 7-23 mcg by ity of tablet 00:00: mouth. [place] [facility] Branch levothyroxi 0 Yes 112ug Take 112 U nivers ne 112 mcg 7-23 mcg by ity of tablet 00:00: mouth. [place] [facility] levothyroxi 2017-0 Yes 112ug Take 112 U nivers ne 112 mcg 7-23 mcg by ity of tablet 00:00: mouth. [place] [facility] levothyroxi 0 Yes 112ug Take 112 U nivers ne 112 mcg 7-23 mcg by ity of tablet 00:00: mouth. [place] [facility] levothyroxi 0 Yes 112ug Take 112 U nivers ne 112 mcg 7-23 mcg by ity of tablet 00:00: mouth. [place] [facility] levothyroxi 0 Yes 112ug Take 112 U nivers ne 112 mcg 7-23 mcg by ity of tablet 00:00: mouth. [place] [facility] levothyroxi 0 Yes 112ug Take 112 U nivers ne 112 mcg 7-23 mcg by ity of tablet 00:00: mouth. [place] [facility] levothyroxi 0 Yes 112ug Take 112 U nivers ne 112 mcg 7-23 mcg by ity of tablet 00:00: mouth. [place] [facility] levothyroxi 0 Yes 112ug Take 112 U nivers ne 112 mcg 7-23 mcg by ity of tablet 00:00: mouth. [place] [facility] levothyroxi 0 Yes 112ug Take 112 U nivers ne 112 mcg 7-23 mcg by ity of tablet 00:00: mouth. [place] [facility] levothyroxi 2017-0 Yes 112ug Take 112 U nivers ne 112 mcg 7-23 mcg by ity of tablet 00:00: mouth. [place] [facility] levothyroxi 0 Yes 112ug Take 112 U nivers ne 112 mcg 7-23 mcg by ity of tablet 00:00: mouth. [place] [facility] levothyroxi 0 Yes 112ug Take 112 U nivers ne 112 mcg 7-23 mcg by ity of tablet 00:00: mouth. [address] levothyroxi 0 Yes 112ug Take 112 U nivers ne 112 mcg 7-23 mcg by ity of tablet 00:00: mouth. [address] levothyroxi 0 Yes 112ug Take 112 U nivers ne 112 mcg 7-23 mcg by ity of tablet 00:00: mouth. [facility] Branch levothyroxi 0 Yes 112ug Take 112 U nivers ne 112 mcg 7-23 mcg by ity of tablet 00:00: mouth. [place] [facility] levothyroxi 0 Yes 112ug Take 112 U nivers ne 112 mcg 7-23 mcg by ity of tablet 00:00: mouth. Medical Branch levothyroxi 0 Yes 112ug Take 112 U nivers ne 112 mcg 7-23 mcg by ity of tablet 00:00: mouth. [facility] Branch levothyroxi 0 Yes 112ug Take 112 U nivers ne 112 mcg 7-23 mcg by ity of tablet 00:00: mouth. [place] [facility] levothyroxi 0 Yes 112ug Take 112 U nivers ne 112 mcg 7-23 mcg by ity of tablet 00:00: mouth. [place] [facility] levothyroxi 0 Yes 112ug Take 112 U nivers ne 112 mcg 7-23 mcg by ity of tablet 00:00: mouth. [place] [facility] levothyroxi 0 Yes 112ug Take 112 U nivers ne 112 mcg 7-23 mcg by ity of tablet 00:00: mouth. [place] [facility] levothyroxi 0 Yes 112ug Take 112 U nivers ne 112 mcg 7-23 mcg by ity of tablet 00:00: mouth. [place] [facility] levothyroxi 0 Yes 112ug Take 112 U nivers ne 112 mcg 7-23 mcg by ity of tablet 00:00: mouth. [place] [facility] levothyroxi 0 Yes 112ug Take 112 U nivers ne 112 mcg 7-23 mcg by ity of tablet 00:00: mouth. [place] [facility] levothyroxi 0 Yes 112ug Take 112 U nivers ne 112 mcg 7-23 mcg by ity of tablet 00:00: mouth. [place] [facility] levothyroxi 0 Yes 112ug Take 112 U nivers ne 112 mcg 7-23 mcg by ity of tablet 00:00: mouth. [place] [facility] Diflucan Diflucan 0 Yes Na Olivas 1 tablet Common 7-05 [facility] 00:00: - [facility] risedronate 2016-0 Yes 150mg Take 150 U nivers 150 mg 6-29 mg by ity of tablet 00:00: mouth. [place] [facility] risedronate 2017-0 Yes 150mg Take 150 U nivers 150 mg 6-29 mg by ity of tablet 00:00: mouth. [place] [facility] risedronate 2017-0 Yes 150mg Take 150 U nivers 150 mg 6-29 mg by ity of tablet 00:00: mouth. [place] [facility] risedronate 2017-0 Yes 150mg Take 150 U nivers 150 mg 6-29 mg by ity of tablet 00:00: mouth. [place] [facility] risedronate 2017-0 Yes 150mg Take 150 U nivers 150 mg 6-29 mg by ity of tablet 00:00: mouth. [place] [facility] risedronate 2017-0 Yes 150mg Take 150 U nivers 150 mg 6-29 mg by ity of tablet 00:00: mouth. [place] [facility] risedronate 2017-0 Yes 150mg Take 150 U nivers 150 mg 6-29 mg by ity of tablet 00:00: mouth. [place] [facility] risedronate 2017-0 Yes 150mg Take 150 U nivers 150 mg 6-29 mg by ity of tablet 00:00: mouth. [place] [facility] risedronate 2017-0 Yes 150mg Take 150 U nivers 150 mg 6-29 mg by ity of tablet 00:00: mouth. [place] [facility] risedronate 2017-0 Yes 150mg Take 150 U nivers 150 mg 6-29 mg by ity of tablet 00:00: mouth. [place] [facility] risedronate 2017-0 Yes 150mg Take 150 U nivers 150 mg 6-29 mg by ity of tablet 00:00: mouth. [place] [facility] risedronate 2017-0 Yes 150mg Take 150 U nivers 150 mg 6-29 mg by ity of tablet 00:00: mouth. [place] [facility] risedronate 2017-0 Yes 150mg Take 150 U nivers 150 mg 6-29 mg by ity of tablet 00:00: mouth. [place] [facility] risedronate 2017-0 Yes 150mg Take 150 U nivers 150 mg 6-29 mg by ity of tablet 00:00: mouth. [place] [facility] risedronate 2017-0 Yes 150mg Take 150 U nivers 150 mg 6-29 mg by ity of tablet 00:00: mouth. [place] [facility] risedronate 2017-0 Yes 150mg Take 150 U nivers 150 mg 6-29 mg by ity of tablet 00:00: mouth. [place] [facility] risedronate 2017-0 Yes 150mg Take 150 U nivers 150 mg 6-29 mg by ity of tablet 00:00: mouth. [place] [facility] risedronate 2017-0 Yes 150mg Take 150 U nivers 150 mg 6-29 mg by ity of tablet 00:00: mouth. [place] [facility] risedronate 2017-0 Yes 150mg Take 150 U nivers 150 mg 6-29 mg by ity of tablet 00:00: mouth. [place] [facility] risedronate 2017-0 Yes 150mg Take 150 U nivers 150 mg 6-29 mg by ity of tablet 00:00: mouth. [place] [facility] risedronate 2017-0 Yes 150mg Take 150 U nivers 150 mg 6-29 mg by ity of tablet 00:00: mouth. [place] [facility] risedronate 2017-0 Yes 150mg Take 150 U nivers 150 mg 6-29 mg by ity of tablet 00:00: mouth. [place] [facility] risedronate 2017-0 Yes 150mg Take 150 U nivers 150 mg 6-29 mg by ity of tablet 00:00: mouth. [place] [facility] risedronate 2017-0 Yes 150mg Take 150 U nivers 150 mg 6-29 mg by ity of tablet 00:00: mouth. [place] [facility] risedronate 2017-0 Yes 150mg Take 150 U nivers 150 mg 6-29 mg by ity of tablet 00:00: mouth. [place] [facility] risedronate 2017-0 Yes 150mg Take 150 U nivers 150 mg 6-29 mg by ity of tablet 00:00: mouth. [place] [facility] risedronate 2017-0 Yes 150mg Take 150 U nivers 150 mg 6-29 mg by ity of tablet 00:00: mouth. [place] [facility] risedronate 2017-0 Yes 150mg Take 150 U nivers 150 mg 6-29 mg by ity of tablet 00:00: mouth. [place] [facility] risedronate 2017-0 Yes 150mg Take 150 U nivers 150 mg 6-29 mg by ity of tablet 00:00: mouth. Medical Branch risedronate 2017-0 Yes 150mg Take 150 U nivers 150 mg 6-29 mg by ity of tablet 00:00: mouth. Medical Branch risedronate Yes 150mg Take 150 U nivers 150 mg 6-29 mg by ity of tablet 00:00: mouth. [facility] Branch risedronate Yes 150mg Take 150 U nivers 150 mg 6-29 mg by ity of tablet 00:00: mouth. [facility] Branch risedronate Yes 150mg Take 150 U nivers 150 mg 6-29 mg by ity of tablet 00:00: mouth. [place] [facility] Branch POTASSIUM Yes 1{tbl} Take 1 Tab Univers CHLORIDE 5-19 by mouth ity of (KLOR-CON 23:49: daily. [place] ORAL) Medical Branch furosemide Yes 20mg Take 20 mg U nivers (LASIX) 20 5-19 by mouth ity o f mg tablet 23:49: daily. [place] [facility] Branch carvedilol Yes 3.125mg Take 3.125 Univers (COREG) 5-19 mg by ity of 3.125 mg 23:49: mouth 2 [place] tablet 19 (two) Medical times [place] daily with meals. POTASSIUM Yes 1{tbl} Take 1 Tab Univers CHLORIDE 5-19 by mouth ity of (KLOR-CON 23:49: daily. [place] ORAL) Medical Branch furosemide Yes 20mg Take 20 mg U nivers (LASIX) 20 5-19 by mouth ity o f mg tablet 23:49: daily. [address] carvedilol Yes 3.125mg Take 3.125 Univers (COREG) 5-19 mg by ity of 3.125 mg 23:49: mouth 2 [place] tablet 19 (two) Medical times [place] daily with meals. POTASSIUM Yes 1{tbl} Take 1 Tab Univers CHLORIDE 5-19 by mouth ity of (KLOR-CON 23:49: daily. [place] ORAL) [address] [place] [address] Branch furosemide Yes 20mg Take 20 mg U nivers (LASIX) 20 5-19 by mouth ity o f mg tablet 23:49: daily. [address] carvedilol Yes 3.125mg Take 3.125 Univers (COREG) 5-19 mg by ity of 3.125 mg 23:49: mouth 2 [place] tablet 19 (two) Medical times Branch daily with meals. POTASSIUM 2017- Yes 1{tbl} Take 1 Tab Univers CHLORIDE 5-19 by mouth ity of (KLOR-CON 23:49: daily. [place] ORAL) 19 Medical Branch furosemide Yes 20mg Take 20 mg U nivers (LASIX) 20 5-19 by mouth ity o f mg tablet 23:49: daily. [place] [address] Medical Branch carvedilol Yes 3.125mg Take 3.125 Univers (COREG) 5-19 mg by ity of 3.125 mg 23:49: mouth 2 [place] tablet 19 (two) Medical times Branch daily with meals. POTASSIUM Yes 1{tbl} Take 1 Tab Univers CHLORIDE 5-19 by mouth ity of (KLOR-CON 23:49: daily. [place] ORAL) 19 Medical Branch furosemide Yes 20mg Take 20 mg U nivers (LASIX) 20 5-19 by mouth ity o f mg tablet 23:49: daily. [place] [address] Medical Branch carvedilol Yes 3.125mg Take 3.125 Univers (COREG) 5-19 mg by ity of 3.125 mg 23:49: mouth 2 [place] tablet 19 (two) Medical times [place] daily with meals. POTASSIUM Yes 1{tbl} Take 1 Tab Univers CHLORIDE 5-19 by mouth ity of (KLOR-CON 23:49: daily. [facility] [place] [facility]) Medical Branch furosemide Yes 20mg Take 20 mg U nivers (LASIX) 20 5-19 by mouth ity o f mg tablet 23:49: daily. [place] [address] Medical Branch carvedilol Yes 3.125mg Take 3.125 Univers (COREG) 5-19 mg by ity of 3.125 mg 23:49: mouth 2 [place] tablet 19 (two) Medical times Branch daily with meals. POTASSIUM 20170 Yes 1{tbl} Take 1 Tab Univers CHLORIDE 5-19 by mouth ity of (KLOR-CON 23:49: daily. [place] ORAL) 19 Medical Branch furosemide Yes 20mg Take 20 mg U nivers (LASIX) 20 5-19 by mouth ity o f mg tablet 23:49: daily. [place] 19 Medical Branch carvedilol Yes 3.125mg Take 3.125 Univers (COREG) 5-19 mg by ity of 3.125 mg 23:49: mouth 2 [place] tablet 19 (two) Medical times [place] daily with meals. POTASSIUM Yes 1{tbl} Take 1 Tab Univers CHLORIDE 5-19 by mouth ity of (KLOR-CON 23:49: daily. [facility] [place] [facility]) Medical [place] furosemide Yes 20mg Take 20 mg U nivers (LASIX) 20 5-19 by mouth ity o f mg tablet 23:49: daily. [address] Branch carvedilol Yes 3.125mg Take 3.125 Univers (COREG) 5-19 mg by ity of 3.125 mg 23:49: mouth 2 [place] tablet 19 (two) Medical times [place] daily with meals. POTASSIUM Yes 1{tbl} Take 1 Tab Univers CHLORIDE 5-19 by mouth ity of (KLOR-CON 23:49: daily. [place] ORAL) [address] [place] [address] furosemide Yes 20mg Take 20 mg U nivers (LASIX) 20 5-19 by mouth ity o f mg tablet 23:49: daily. [address] carvedilol Yes 3.125mg Take 3.125 Univers (COREG) 5-19 mg by ity of 3.125 mg 23:49: mouth 2 [place] tablet 19 (two) Medical times [place] daily with meals. POTASSIUM Yes 1{tbl} Take 1 Tab Univers CHLORIDE 5-19 by mouth ity of (KLOR-CON 23:49: daily. [facility] [place] [facility]) Medical [place] furosemide Yes 20mg Take 20 mg U nivers (LASIX) 20 5-19 by mouth ity o f mg tablet 23:49: daily. [address] Branch carvedilol Yes 3.125mg Take 3.125 Univers (COREG) 5-19 mg by ity of 3.125 mg 23:49: mouth 2 [place] tablet 19 (two) Medical times [place] daily with meals. POTASSIUM Yes 1{tbl} Take 1 Tab Univers CHLORIDE 5-19 by mouth ity of (KLOR-CON 23:49: daily. [facility] [place] [facility]) Medical [place] furosemide 2016- Yes 20mg Take 20 mg U nivers (LASIX) 20 5-19 by mouth ity o f mg tablet 23:49: daily. [address] carvedilol Yes 3.125mg Take 3.125 Univers (COREG) 5-19 mg by ity of 3.125 mg 23:49: mouth 2 [place] tablet 19 (two) Medical times [place] daily with meals. POTASSIUM Yes 1{tbl} Take 1 Tab Univers CHLORIDE 5-19 by mouth ity of (KLOR-CON 23:49: daily. [place] ORAL) 19 Medical Branch furosemide 0 Yes 20mg Take 20 mg U nivers (LASIX) 20 5-19 by mouth ity o f mg tablet 23:49: daily. [address] carvedilol Yes 3.125mg Take 3.125 Univers (COREG) 5-19 mg by ity of 3.125 mg 23:49: mouth 2 [place] tablet 19 (two) Medical times [place] daily with meals. POTASSIUM Yes 1{tbl} Take 1 Tab Univers CHLORIDE 5-19 by mouth ity of (KLOR-CON 23:49: daily. [place] ORAL) 19 [facility] furosemide Yes 20mg Take 20 mg U nivers (LASIX) 20 5-19 by mouth ity o f mg tablet 23:49: daily. [address] carvedilol Yes 3.125mg Take 3.125 Univers (COREG) 5-19 mg by ity of 3.125 mg 23:49: mouth 2 [place] tablet 19 (two) Medical times [place] daily with meals. POTASSIUM Yes 1{tbl} Take 1 Tab Univers CHLORIDE 5-19 by mouth ity of (KLOR-CON 23:49: daily. [place] ORAL) Medical [place] furosemide 0 Yes 20mg Take 20 mg U nivers (LASIX) 20 5-19 by mouth ity o f mg tablet 23:49: daily. [address] carvedilol Yes 3.125mg Take 3.125 Univers (COREG) 5-19 mg by ity of 3.125 mg 23:49: mouth 2 [place] tablet 19 (two) Medical times [place] daily with meals. POTASSIUM Yes 1{tbl} Take 1 Tab Univers CHLORIDE 5-19 by mouth ity of (KLOR-CON 23:49: daily. [place] ORAL) 19 Medical Branch furosemide Yes 20mg Take 20 mg U nivers (LASIX) 20 5-19 by mouth ity o f mg tablet 23:49: daily. [address] carvedilol Yes 3.125mg Take 3.125 Univers (COREG) 5-19 mg by ity of 3.125 mg 23:49: mouth 2 [place] tablet 19 (two) Medical times [place] daily with meals. POTASSIUM 2017 Yes 1{tbl} Take 1 Tab Univers CHLORIDE 5-19 by mouth ity of (KLOR-CON 23:49: daily. [address] furosemide Yes 20mg Take 20 mg U nivers (LASIX) 20 5-19 by mouth ity o f mg tablet 23:49: daily. [address] carvedilol Yes 3.125mg Take 3.125 Univers (COREG) 5-19 mg by ity of 3.125 mg 23:49: mouth 2 [place] tablet 19 (two) [facility] times [place] daily with meals. HYDROcodone Yes [id number] 05/14 - Univers -acetaminop 5-19 /2 Q4h ity o f hen 5-325 00:00: PRN pain [place] mg tablet 00 or cough Medica l requiring Branch Narcotic HYDROcodone Yes [id number] 2 - Univers -acetaminop 5-19 /2 Q4h ity o f hen 5-325 00:00: PRN pain [place] mg tablet 00 or cough Medica l requiring Branch Narcotic HYDROcodone Yes [id number] 2 - Univers -acetaminop 5-19 /2 Q4h ity o f hen 5-325 00:00: PRN pain [place] mg tablet 00 or cough Medica l requiring Branch Narcotic HYDROcodone Yes [id number] 2 - Univers -acetaminop 5-19 /2 Q4h ity o f hen 5-325 00:00: PRN pain [place] mg tablet 00 or cough Medica l requiring Branch Narcotic HYDROcodone Yes [id number] 2 - Univers -acetaminop 5-19 /2 Q4h ity o f hen 5-325 00:00: PRN pain [place] mg tablet 00 or cough Medica l requiring Branch Narcotic HYDROcodone 2017- Yes [id number] 2 - 1 Univers -acetaminop 5-19 1/2 Q4h ity o f hen 5-325 00:00: PRN pain [place] mg tablet 00 or cough Medica l requiring Branch Narcotic HYDROcodone 2017- Yes [id number] 2 - 1 Univers -acetaminop 5-19 1/2 Q4h ity o f hen 5-325 00:00: PRN pain [place] mg tablet 00 or cough Medica l requiring Branch Narcotic HYDROcodone 2017- Yes [id number] 2 - 1 Univers -acetaminop 5-19 /2 Q4h ity o f hen 5-325 00:00: PRN pain [place] mg tablet 00 or cough Medica l requiring Branch Narcotic HYDROcodone 2017- Yes [id number] 2 - 1 Univers -acetaminop 5-19 /2 Q4h ity o f hen 5-325 00:00: PRN pain [place] mg tablet 00 or cough Medica l requiring Branch Narcotic HYDROcodone 2017- Yes [id number] 2 - 1 Univers -acetaminop 5-19 /2 Q4h ity o f hen 5-325 00:00: PRN pain [place] mg tablet 00 or cough Medica l requiring Branch Narcotic HYDROcodone 2017- Yes [id number] 2 - 1 Univers -acetaminop 5-19 1/2 Q4h ity o f hen 5-325 00:00: PRN pain [place] mg tablet 00 or cough Medica l requiring Branch Narcotic HYDROcodone 2017- Yes [id number] 2 - 1 Univers -acetaminop 5-19 1/2 Q4h ity o f hen 5-325 00:00: PRN pain [place] mg tablet 00 or cough Medica l requiring Branch Narcotic HYDROcodone 2017- Yes [id number] 2 - 1 Univers -acetaminop 5-19 1/2 Q4h ity o f hen 5-325 00:00: PRN pain [place] mg tablet 00 or cough Medica l requiring Branch Narcotic HYDROcodone 2017- Yes [id number] 2 - 1 Univers -acetaminop 5-19 1/2 Q4h ity o f hen 5-325 00:00: PRN pain [place] mg tablet 00 or cough Medica l requiring Branch Narcotic HYDROcodone 2017- Yes [id number] 1/2 - 1 Univers -acetaminop 5-19 1/2 Q4h ity o f hen 5-325 00:00: PRN pain [place] mg tablet 00 or cough Medica l requiring Branch Narcotic HYDROcodone 0 Yes [id number] 1/2 - 1 Univers -acetaminop 5-19 1/2 Q4h ity o f hen 5-325 00:00: PRN pain [place] mg tablet 00 or cough Medica l requiring Branch Narcotic HYDROcodone 2017- 2020- No [id number] 1/2 - 1 Univers -acetaminop 5-19 11-10 1/2 Q4h ity of hen 5-325 00:00: 00:00 PRN pain [place] mg tablet 00 :00 or cough Medica l requiring Branch Narcotic HYDROcodone 2016- 2020- No [id number] 1/2 - 1 Univers -acetaminop 5-19 11-10 1/2 Q4h ity of hen 5-325 00:00: 00:00 PRN pain [place] mg tablet 00 :00 or cough Medica l requiring Branch Narcotic anastrozole [id number] Yes Univer s 1 mg tablet 3-15 ity of 00:00: [place] [facility] anastrozole 2017-0 Yes Univer s 1 mg tablet 3-15 ity of 00:00: [place] [facility] anastrozole 2017-0 Yes Univer s 1 mg tablet 3-15 ity of 00:00: [place] [facility] anastrozole 2017-0 Yes Univer s 1 mg tablet 3-15 ity of 00:00: [place] [facility] anastrozole 2017-0 Yes Univer s 1 mg tablet 3-15 ity of 00:00: [place] [facility] anastrozole 2017-0 Yes Univer s 1 mg tablet 3-15 ity of 00:00: [place] [facility] anastrozole 2017-0 Yes Univer s 1 mg tablet 3-15 ity of 00:00: [place] [facility] anastrozole 2017-0 Yes Univer s 1 mg tablet 3-15 ity of 00:00: [place] [facility] anastrozole 2017-0 Yes Univer s 1 mg tablet 3-15 ity of 00:00: [place] 00 Medical Branch anastrozole 2017-0 Yes Univer s 1 mg tablet 3-15 ity of 00:00: [place] 00 Medical Branch anastrozole 2017-0 Yes Univer s 1 mg tablet 3-15 ity of 00:00: [place] 00 [facility] Branch anastrozole 2017-0 Yes Univer s 1 mg tablet 3-15 ity of 00:00: [place] 00 [facility] anastrozole 2017-0 Yes Univer s 1 mg tablet 3-15 ity of 00:00: [place] 00 [facility] anastrozole 2017-0 Yes Univer s 1 mg tablet 3-15 ity of 00:00: [place] 00 [facility] anastrozole 2017-0 Yes Univer s 1 mg tablet 3-15 ity of 00:00: [place] 00 [facility] anastrozole 2017-0 Yes Univer s 1 mg tablet 3-15 ity of 00:00: [place] 00 [facility] anastrozole 2017-0 2020- No Unive rs 1 mg tablet 3-15 11-10 ity of 00:00: 00:00 [place] 00 :00 Medical Branch anastrozole 2017-0 2020- No Unive rs 1 mg tablet 3-15 11-10 ity of 00:00: 00:00 [place] 00 :00 Medical Branch blood sugar 2017-0 Yes Univer s diagnostic 2-09 ity of (CONTOUR 00:00: [place] NEXT TEST 00 Medical STRIPS) Branch strip blood sugar 2017-0 Yes Univer s diagnostic 2-09 ity of (CONTOUR 00:00: [place] NEXT TEST 00 Medical STRIPS) Branch strip blood sugar 2017-0 Yes Univer s diagnostic 2-09 ity of (CONTOUR 00:00: [place] NEXT TEST 00 Medical STRIPS) Branch strip blood sugar 2017-0 Yes Univer s diagnostic 2-09 ity of (CONTOUR 00:00: [place] NEXT TEST 00 Medical STRIPS) Branch strip blood sugar 2017-0 Yes Univer s diagnostic 2-09 ity of (CONTOUR 00:00: [place] NEXT TEST 00 Medical STRIPS) Branch strip blood sugar 2017-0 Yes Univer s diagnostic 2-09 ity of (CONTOUR 00:00: [place] NEXT TEST 00 Medical STRIPS) Branch strip blood sugar 2017-0 Yes Univer s diagnostic 2-09 ity of (CONTOUR 00:00: [place] NEXT TEST 00 Medical STRIPS) Branch strip blood sugar 2016-0 Yes Univer s diagnostic 2-09 ity of (CONTOUR 00:00: [place] NEXT TEST 00 Medical STRIPS) Branch strip blood sugar 2016- Yes Univer s diagnostic 2-09 ity of (CONTOUR 00:00: [place] NEXT TEST 00 Medical STRIPS) Branch strip blood sugar 2016-0 Yes Univer s diagnostic 2-09 ity of (CONTOUR 00:00: [place] NEXT TEST 00 Medical STRIPS) Branch strip blood sugar 2016-0 Yes Univer s diagnostic 2-09 ity of (CONTOUR 00:00: [place] NEXT TEST 00 Medical STRIPS) Branch strip blood sugar 2016-0 Yes Univer s diagnostic 2-09 ity of (CONTOUR 00:00: [place] NEXT TEST 00 Medical STRIPS) Branch strip blood sugar 2016- Yes Univer s diagnostic 2-09 ity of (CONTOUR 00:00: [place] NEXT TEST 00 Medical STRIPS) Branch strip blood sugar 2016- Yes Univer s diagnostic 2-09 ity of (CONTOUR 00:00: [place] NEXT TEST 00 Medical STRIPS) Branch strip blood sugar 2016- Yes Univer s diagnostic 2-09 ity of (CONTOUR 00:00: [place] NEXT TEST 00 Medical STRIPS) Branch strip blood sugar 2016- Yes Univer s diagnostic 2-09 ity of (CONTOUR 00:00: [place] NEXT TEST 00 Medical STRIPS) Branch strip blood sugar 2016-0 Yes Univer s diagnostic 2-09 ity of (CONTOUR 00:00: [place] NEXT TEST 00 Medical STRIPS) Branch strip blood sugar 2016-0 Yes Univer s diagnostic 2-09 ity of (CONTOUR 00:00: [place] NEXT TEST 00 Medical STRIPS) Branch strip blood sugar 2016-0 Yes Univer s diagnostic 2-09 ity of (CONTOUR 00:00: [place] NEXT TEST 00 Medical STRIPS) Branch strip blood sugar 2016-0 Yes Univer s diagnostic 2-09 ity of (CONTOUR 00:00: [place] NEXT TEST 00 Medical STRIPS) Branch strip blood sugar 2016-0 Yes Univer s diagnostic 2-09 ity of (CONTOUR 00:00: [place] NEXT TEST 00 Medical STRIPS) Branch strip blood sugar 2016-0 Yes Univer s diagnostic 2-09 ity of (CONTOUR 00:00: [place] NEXT TEST 00 Medical STRIPS) Branch strip blood sugar 2016-0 Yes Univer s diagnostic 2-09 ity of (CONTOUR 00:00: [place] NEXT TEST 00 Medical STRIPS) Branch strip blood sugar 2016-0 Yes Univer s diagnostic 2-09 ity of (CONTOUR 00:00: [place] NEXT TEST 00 Medical STRIPS) Branch strip blood sugar 2017- Yes Univer s diagnostic 06-21 ity of (CONTOUR 00:00: [place] NEXT TEST 00 Medical STRIPS) Branch strip Meclizine Meclizine Yes Na Olivas 1 tablet Common HCl HCl as needed [facility] Metformin Metformin Yes Na Olivas 1/2 Co mmon HCl HCl tablet Spirit with meals - [facility] Levothyroxi Levothyroxi Yes Na Olivas TAKE 1 Common ne Sodium ne Sodium TABLET BY Spirit MOUTH - [facility] DAILY [facility] Nadolol Nadolol Yes Na Olivas 1 tablet Co mmon [facility] Ibuprofen Ibuprofen Yes Na Olivas 1 tablet Common po prn Spirit pain - [facility] Levothyroxi Levothyroxi Yes Na Olivas 1 tablet Common ne Sodium ne Sodium on an Spir it empty - [facility] stomach in [facility] Pennsaid Pennsaid Yes Na Olivas 2 Comm on applicatio Spirit ns to - [facility] affected [facility] Levothyroxi Levothyroxi Yes Na Olivas TAKE ONE Common ne Sodium ne Sodium TABLET BY Spirit MOUTH ONCE - [facility] DAILY [facility] Fosamax Fosamax Yes Na Olivas not Common defined [facility] Calcium + D Calcium + D Yes Na Olivas not Common defined [facility] Risedronate Risedronate Yes Na Olivas not Common Sodium Sodium defined [facility] Immunizations Ordered Filled Immunization Date Status Comments [facility] e Immunization Name Name SARS-COV-2 COVID-19 2020-07-30 Completed Unive rsity of PFIZER VACCINE 00:00:00 [facility] SARS-COV-2 COVID-19 2020-07-30 Completed Unive rsity of PFIZER VACCINE 00:00:00 [facility] SARS-COV-2 COVID-19 2020-07-30 Completed Unive rsity of PFIZER VACCINE 00:00:00 [facility] SARS-COV-2 COVID-19 2020-07-30 Completed Unive rsity of PFIZER VACCINE 00:00:00 [facility] SARS-COV-2 COVID-19 2020-07-30 Completed Unive rsity of PFIZER VACCINE 00:00:00 [facility] SARS-COV-2 COVID-19 2020-07-30 Completed Unive rsity of PFIZER VACCINE 00:00:00 [facility] SARS-COV-2 COVID-19 2020-07-30 Completed Unive rsity of PFIZER VACCINE 00:00:00 [facility] SARS-COV-2 COVID-19 2020-07-30 Completed Unive rsity of PFIZER VACCINE 00:00:00 [facility] SARS-COV-2 COVID-19 2020-07-30 Completed Unive rsity of PFIZER VACCINE 00:00:00 [facility] SARS-COV-2 COVID-19 2020-07-09 Completed Unive rsity of PFIZER VACCINE 00:00:00 [facility] SARS-COV-2 COVID-19 2020-07-09 Completed Unive rsity of PFIZER VACCINE 00:00:00 [facility] SARS-COV-2 COVID-19 2020-07-09 Completed Unive rsity of PFIZER VACCINE 00:00:00 [facility] SARS-COV-2 COVID-19 2020-07-09 Completed Unive rsity of PFIZER VACCINE 00:00:00 [facility] SARS-COV-2 COVID-19 2020-07-09 Completed Unive rsity of PFIZER VACCINE 00:00:00 [facility] SARS-COV-2 COVID-19 2020-07-09 Completed Unive rsity of PFIZER VACCINE 00:00:00 [facility] SARS-COV-2 COVID-19 2020-07-09 Completed Unive rsity of PFIZER VACCINE 00:00:00 [facility] SARS-COV-2 COVID-19 2020-07-09 Completed Unive rsity of PFIZER VACCINE 00:00:00 [facility] SARS-COV-2 COVID-19 2020-07-09 Completed Unive rsity of PFIZER VACCINE 00:00:00 [facility] Influenza Virus 2020-03-22 Completed Universit y of Vaccine Quad .5 mL 00:00:00 [place] [facility] IM 6+ MO Branch Influenza Virus 2020-03-22 Completed Universit y of [facility] .5 mL 00:00:00 [place] [facility] IM 6+ MO Branch Influenza Virus 2020-03-22 Completed Universit y of [facility] .5 mL 00:00:00 [place] [facility] IM 6+ MO Branch Influenza Virus 2020-03-22 Completed Universit y of [facility] .5 mL 00:00:00 [place] [facility] IM 6+ MO Branch Influenza Virus 2020-03-22 Completed Universit y of [facility] .5 mL 00:00:00 [place] [facility] IM 6+ MO Branch Influenza Virus 2020-03-22 Completed Universit y of [facility] .5 mL 00:00:00 [place] [facility] IM 6+ MO Branch Influenza Virus 2020-03-22 Completed Universit y of [facility] .5 mL 00:00:00 [place] [facility] IM 6+ MO Branch Influenza Virus 2020-03-22 Completed Universit y of [facility] .5 mL 00:00:00 [place] [facility] IM 6+ MO Branch Influenza Virus 2020-03-22 Completed Universit y of [facility] .5 mL 00:00:00 [place] [facility] IM 6+ MO Branch Influenza Virus 2020-03-22 Completed Universit y of [facility] .5 mL 00:00:00 [place] [facility] IM 6+ MO Branch Influenza Virus 2020-03-22 Completed Universit y of [facility] .5 mL 00:00:00 [place] [facility] IM 6+ MO Branch Influenza Virus 2020-03-22 Completed Universit y of [facility] .5 mL 00:00:00 [place] [facility] IM 6+ MO Branch Influenza Virus 2020-03-22 Completed Universit y of [facility] .5 mL 00:00:00 [place] [facility] IM 6+ MO Branch Influenza Virus 2020-03-22 Completed Universit y of [facility] .5 mL 00:00:00 [place] [facility] IM 6+ MO Branch Influenza Virus 2020-03-22 Completed Universit y of [facility] .5 mL 00:00:00 [place] [facility] IM 6+ MO Branch Influenza Virus 2020-03-22 Completed Universit y of [facility] .5 mL 00:00:00 [place] [facility] IM 6+ MO Branch Influenza Virus 2020-03-22 Completed Universit y of [facility] .5 mL 00:00:00 [place] [facility] IM 6+ [facility] Branch Tdap 2011-12-19 Completed University of 00:00:00 [facility] Tdap 2011-12-19 Completed University of 00:00:00 [facility] Tdap 2011-12-19 Completed University of 00:00:00 [facility] Tdap 2011-12-19 Completed University of 00:00:00 [facility] Tdap 2011-12-19 Completed University of 00:00:00 [facility] Tdap 2011-12-19 Completed University of 00:00:00 [place] [facility] Tdap 2011-12-19 Completed University of 00:00:00 [place] [facility] Tdap 2011-12-19 Completed University of 00:00:00 [place] [facility] Tdap 2011-12-19 Completed University of 00:00:00 [place] [facility] TDAP 2011-12-19 Completed University of 00:00:00 [place] [facility] TDAP 2011-12-19 Completed University of 00:00:00 [place] [facility] TDAP 2011-12-19 Completed University of 00:00:00 [place] [facility] TDAP 2011-12-19 Completed University of 00:00:00 [place] [facility] TDAP 2011-12-19 Completed University of 00:00:00 [place] [facility] TDAP 2011-12-19 Completed University of 00:00:00 [place] [facility] TDAP 2011-12-19 Completed University of 00:00:00 [place] [facility] TDAP 2011-12-19 Completed University of 00:00:00 [place] [facility] TDAP 2011-12-19 Completed University of 00:00:00 [place] [facility] TDAP 2011-12-19 Completed University of 00:00:00 [place] [facility] TDAP 2011-12-19 Completed University of 00:00:00 [place] [facility] TDAP 2011-12-19 Completed University of 00:00:00 [place] [facility] TDAP 2011-12-19 Completed University of 00:00:00 [place] [facility] TDAP 2011-12-19 Completed University of 00:00:00 [place] [facility] TDAP 2011-12-19 Completed University of 00:00:00 [place] [facility] TDAP 2011-12-19 Completed University of 00:00:00 [place] [facility] TDAP 2011-12-19 Completed University of 00:00:00 [place] [facility] Tdap 2011-12-19 Completed University of 00:00:00 [place] [facility] TDAP 2011-12-19 Completed University of 00:00:00 [place] [facility] TDAP 2011-12-19 Completed University of 00:00:00 [place] [facility] TDAP 2011-12-19 Completed University of 00:00:00 [place] [facility] TDAP 2011-12-19 Completed University of 00:00:00 [place] [facility] TDAP 2011-12-19 Completed University of 00:00:00 [place] [facility] Tdap 2011-12-19 Completed University of 00:00:00 [facility] Vital Signs Vital Name Observation Time Observation Value Comments Source Systolic blood 2021-03-28 17:06:00 124 mm[Hg] Univer sity of pressure [place] [facility] Diastolic blood 2021-03-28 17:06:00 76 mm[Hg] Unive rsity of pressure [facility] Heart rate 2021-03-28 17:06:00 73 /min Universi ty of [facility] Body temperature 2021-03-28 17:06:00 37.17 Kimmie Univ ersity of [facility] Respiratory rate 2021-03-28 17:06:00 18 /min Univ ersity of [facility] Body height 2021-03-28 17:06:00 165.1 cm Universi ty of [facility] Body weight 2021-03-28 17:06:00 114.941 kg Universi ty of [place] [facility] BMI 2021-03-28 17:06:00 42.17 kg/m2 Universi ty of [facility] Oxygen saturation in 2021-03-28 17:06:00 97 /min University of Arterial blood by [facility] Pulse oximetry Branch Systolic blood 2020-12-22 18:03:00 117 mm[Hg] Univer sity of pressure [facility] Diastolic blood 2020-12-22 18:03:00 57 mm[Hg] Unive rsity of pressure [facility] Heart rate 2020-12-22 18:03:00 59 /min Universi ty of [facility] Body temperature 2020-12-22 18:03:00 36.83 Kimmie Univ ersity of [facility] Respiratory rate 2020-12-22 18:03:00 18 /min Univ ersity of [place] [facility] Body height 2020-12-22 18:03:00 165.1 cm Universi ty of [place] [facility] Body weight 2020-12-22 18:03:00 112.764 kg Universi ty of [place] [facility] BMI 2020-12-22 18:03:00 41.37 kg/m2 Universi ty of [place] [facility] Systolic blood 2020-08-10 16:09:00 123 mm[Hg] Univer sity of pressure [facility] Diastolic blood 2020-08-10 16:09:00 75 mm[Hg] Unive rsity of pressure [place] [facility] Heart rate 2020-08-10 16:09:00 62 /min Universi ty of [place] [facility] Body temperature 2020-08-10 16:09:00 36.39 Kimmie Univ ersity of [place] [facility] Respiratory rate 2020-08-10 16:09:00 20 /min Univ ersity of [place] [facility] Body height 2020-08-10 16:09:00 165.1 cm Universi ty of [place] [facility] Body weight 2020-08-10 16:09:00 113.399 kg Universi ty of [place] [facility] BMI 2020-08-10 16:09:00 41.60 kg/m2 Universi ty of [place] [facility] Oxygen saturation in 2020-08-10 16:09:00 98 /min University of Arterial blood by [facility] Pulse oximetry Branch Systolic blood 2020-04-14 20:39:00 118 mm[Hg] Univer sity of pressure [place] [facility] Diastolic blood 2020-04-14 20:39:00 60 mm[Hg] Unive rsity of pressure [place] [facility] Heart rate 2020-04-14 20:39:00 51 /min Universi ty of [place] [facility] Body temperature 2020-04-14 20:39:00 36.56 Kimmie Univ ersity of [place] [facility] Respiratory rate 2020-04-14 20:39:00 18 /min Univ ersity of [place] [facility] Body height 2020-04-14 20:39:00 165.1 cm Universi ty of [place] [facility] Body weight 2020-04-14 20:39:00 112.401 kg Universi ty of [place] [facility] BMI 2020-04-14 20:39:00 41.24 kg/m2 Universi ty of [place] [facility] Systolic blood 2020-04-14 20:39:00 118 mm[Hg] Univer sity of pressure [place] [facility] Diastolic blood 2020-04-14 20:39:00 60 mm[Hg] Unive rsity of pressure [place] [facility] Heart rate 2020-04-14 20:39:00 51 /min Universi ty of [place] [facility] Body temperature 2020-04-14 20:39:00 36.56 Kimmie Univ ersity of [place] [facility] Respiratory rate 2020-04-14 20:39:00 18 /min Univ ersity of [place] [facility] Body height 2020-04-14 20:39:00 165.1 cm Universi ty of [place] [facility] Body weight 2020-04-14 20:39:00 112.401 kg Universi ty of [place] [facility] BMI 2020-04-14 20:39:00 41.24 kg/m2 Universi ty of [place] [facility] Systolic blood 2020-03-22 20:01:00 107 mm[Hg] Univer sity of pressure [place] [facility] Diastolic blood 2020-03-22 20:01:00 63 mm[Hg] Unive rsity of pressure [place] [facility] Heart rate 2020-03-22 20:01:00 54 /min Universi ty of [place] [facility] Body temperature 2020-03-22 20:01:00 36.89 Kimmie Univ ersity of [place] [facility] Respiratory rate 2020-03-22 20:01:00 18 /min Univ ersity of [place] [facility] Body height 2020-03-22 20:01:00 165.1 cm Universi ty of [place] [facility] Body weight 2020-03-22 20:01:00 113.399 kg Universi ty of [place] [facility] BMI 2020-03-22 20:01:00 41.60 kg/m2 Universi ty of [place] [facility] Systolic blood 2019-07-16 15:18:00 131 mm[Hg] Univer sity of pressure [place] [facility] Diastolic blood 2019-07-16 15:18:00 79 mm[Hg] Unive rsity of pressure [place] [facility] Heart rate 2019-07-16 15:18:00 65 /min Universi ty of [place] [facility] Respiratory rate 2019-07-16 15:18:00 20 /min Univ ersity of [place] [facility] Body height 2019-07-16 15:18:00 167.6 cm Universi ty of [place] [facility] Body weight 2019-07-16 15:18:00 113.399 kg Universi ty of [place] [facility] BMI 2019-07-16 15:18:00 40.35 kg/m2 Universi ty of [place] [facility] Systolic blood 2019-06-28 21:48:00 130 mm[Hg] Univer sity of pressure [place] [facility] Diastolic blood 2019-06-28 21:48:00 86 mm[Hg] Unive rsity of pressure [place] [facility] Heart rate 2019-06-28 21:48:00 77 /min Universi ty of [place] [facility] Body temperature 2019-06-28 21:48:00 37.56 Kimmie Univ ersity of [place] [facility] Respiratory rate 2019-06-28 21:48:00 16 /min [facility] ersity of [facility] Body height 2019-06-28 21:48:00 167.6 cm Universi ty of [place] [facility] [place] Body weight 2019-06-28 21:48:00 113.762 kg Universi ty of [place] [facility] [place] BMI 2019-06-28 21:48:00 40.48 kg/m2 Universi ty of [facility] Oxygen saturation in 2019-06-28 21:48:00 96 /min [facility] Arterial blood by [facility] Pulse oximetry Branch Systolic blood 2019-01-29 18:17:00 112 mm[Hg] Univer sity of pressure [facility] Diastolic blood 2019-01-29 18:17:00 63 mm[Hg] Unive rsity of pressure [facility] Heart rate 2019-01-29 18:17:00 66 /min Universi ty of [facility] Body temperature 2019-01-29 18:17:00 37 Kimmie [facility] Respiratory rate 2019-01-29 18:17:00 18 /min [facility] Body height 2019-01-29 18:17:00 165.1 cm Universi ty of [place] [facility] [place] Body weight 2019-01-29 18:17:00 116.574 kg Universi ty of [facility] BMI 2019-01-29 18:17:00 42.77 kg/m2 [facility] Procedures Procedure Date / Time Performing Clinician Source Performed ASSIGNMENT OF BENEFITS 2021-03-28 16:41:17 Doctor Unassigned, Un [facility] [place] [facility] POCT URINALYSIS 2021-03-28 00:00:00 Zully Judd [place] [facility] DISCLOSURE AND CONSENT 2020-12-22 05:01:00 Doctor Unassigned, Un [facility] [place] MEDICAL & SURGICAL [place] [facility] h PROCEDURES - FEMALM US PELVIS COMPLETE WITH 2020-12-08 16:44:47 Geraldine Lopez [facility] TRANSVAGINAL [facility] POCT URINALYSIS AUTO 2020-08-10 16:03:00 Manuela Fang [facility] POCT URINALYSIS AUTO 2020-04-14 20:41:00 Alonzo Galindo [facility] FLU VACC ([id number]), 6+ 2020-03-22 20:26:26 Geraldine Lopez [facility] MONTHS, IM, QUAD Medical Branch ASSIGNMENT OF BENEFITS 2020-03-22 19:10:13 Doctor Unassigned, Un [facility] [place] [facility] POCT URINALYSIS W/O 2020-03-22 00:00:00 Geraldine Lopez [facility] SPECIFIC GRAVITY Medical Branch XR ELBOW <3 VW LEFT 2019-07-16 15:25:18 Imelda [facility] POCT FLU A AND B 2019-06-28 21:59:00 Joseph Harrison [facility] (MOLECULAR) [facility] POCT GRP A STREP 2019-06-28 21:54:00 Joseph Harrison [facility] (MOLECULAR) [facility] [place] ASSIGNMENT OF BENEFITS 2019-01-29 18:03:13 Doctor Unassigned, Un [facility] [place] [facility] [place] NO SHOW OR MISSED 2019-01-29 18:02:51 Doctor Unassigned, [facility] APPOINTMENT POLICY [place] [facility] ACKNOWLEDGEMENT POCT TEST 2019-01-29 00:00:00 Geraldine Lopez [facility] US PELVIS COMPLETE WITH 2018-12-05 22:02:42 Geraldine Lopez [facility] TRANSVAGINAL [facility] CONSENT/REFUSAL FOR 2018-12-05 21:33:11 Doctor Unasslucila, [facility] DIAGNOSIS AND TREATMENT [place] [facility] [place] Encounters Start End Encounter Admission Attending Care Care Encounter Source Date/Time Date/Time Type Type Clinicians Facility Department ID 2021-08-09 Outpatient Olivas, Na [facility] [id number] 2 Common 10:25:00 [id number] [facility] 2021-06-07 Outpatient Olivas, Na STLMLC [facility] [id number] 2 Common 14:24:50 [id number] [facility] 2021-06-07 Outpatient Olivas, Na [facility] [id number] 2 Common 14:24:02 64914 [facility] 2021-06-07 Outpatient Olivas, Na [facility] [id number] 2 Common 14:23:31 [id number] [facility] 2021-06-07 Outpatient Olivas, Na STLMLC STLMLC [id number] 2 Common 11:54:47 10552 [facility] 2021-06-07 Outpatient Olivas, Na STLMLC STLMLC [id number] 2 Common 11:54:11 34723 [facility] 2021-06-07 Outpatient Olivas, Na STLMLC STLMLC [id number] 2 Common 11:46:48 10086 [facility] 2021-06-07 Outpatient Olivas, Na STLMLC STLMLC [id number] 2 Common 11:46:23 [id number] [facility] 2021-06-07 Outpatient Olivas, Na STLMLC STLMLC [id number] 2 Common 11:45:30 [id number] [facility] 2021-06-07 Outpatient Olivas, Na STLMLC STLMLC [id number] 2 Common 11:26:16 24421 [facility] 2021-06-07 Outpatient Olivas, Na STLMLC STLMLC [id number] 2 Common 11:22:49 67619 [facility] 2021-06-07 Outpatient Olivas, Na STLMLC STLMLC [id number] 2 Common 11:19:34 41600 [facility] 2021-06-07 Outpatient Olivas, Na STLMLC STLMLC [id number] 2 Common 11:19:24 56924 [facility] 2021-06-07 Outpatient Olivas, Na STLMLC STLMLC [id number] 2 Common 11:04:05 42311 [facility] 2020-03-14 Inpatient Neno, HCAPM ENDO [id number] [facility] 08:45:00 [facility] 2020-03-11 Inpatient EL Neno, HCAPM ENDO [id number] [facility] 11:00:00 [facility] 2021-08-25 2021-08-25 Outpatient CURTIS MEAD [facility] [id number] Univers 11:00:00 11:00:00 [id number] ity [facility] 2021-04-25 2021-04-25 ambulatory STLMLC STLMLC [id number] Common 00:00:00 00:00:00 [facility] 2021-04-18 2021-04-18 Outpatient R [facility] [id number] Univers 16:00:00 16:00:00 [id number] ity [facility] 2021-04-18 2021-04-18 Outpatient R LASHANDA [facility] [id number] Univers 16:00:00 16:00:00 OPAL ity [facility] 2021-03-30 2021-03-[address] [facility] [id number] Univers 15:00:00 15:00:00 [id number] ity [facility] 2021-03-30 2021-03-[address] [facility] [id number] Univers 15:00:00 15:00:00 ity [facility] 2021-03-29 2021-03-[address] [facility] [id number] Univers 08:00:00 08:00:00 [id number] ity [facility] 2021-03-29 2021-03-[address] [facility] [id number] Univers 08:00:00 08:00:00 ity [facility] 2021-03-28 2021-03-28 [facility] [id number] Univers 10:42:54 11:44:37 Care [facility] [id number] it y of [place] [id number] Horace as CASSIDY?BLEA [phone] [address] MEDICAL OFFICE BUILDING 2021-03-28 2021-03-28 Outpatient R DUTCH [facility] [id number] Univers 10:40:00 11:44:37 ZULLY ity [facility] 2021-03-28 2021-03-28 Outpatient R [facility] [id number] Univers 09:40:00 09:40:00 [id number] ity [facility] 2021-03-28 2021-03-28 Orders Doctor MARITZA [id number] Univers 00:00:00 00:00:00 Only Unassigned, KEN [id number] ity of [place] [facility] [id number] Horace as [phone] [address] 2021-03-24 2021-03-24 ambulatory STLMLC STLMLC [id number] Common 00:00:00 00:00:00 [facility] 2020-12-22 2020-12-22 Office [facility] [id number] Univers 12:39:32 13:40:35 Visit Anni Navarrete [id number] i [id number] [phone] [address] 2020-12-22 2020-12-22 Outpatient R JESSICA GERALDINE [facility] [id number] Univers 13:00:00 13:00:00 [id number] ity of [facility] 2020-12-22 2020-12-[address] [facility] [id number] Univers 13:00:00 13:00:00 ity [facility] 2020-12-22 2020-12-22 Orders Doctor MARITZA [id number] Univers 00:00:00 00:00:00 Only Unassigned, KEN [id number] ity of [place] [facility] [id number] Horace as [phone] [address] 2020-12-15 2020-12-15 Outpatient STLMLC STLC [id number] Common 00:00:00 00:00:00 [facility] 2020-12-14 2020-12-14 Case Jessica Geraldine [facility] [id number] Univers 00:00:00 00:00:00 Management Anni Bhagat [id number] [id number] [phone] [address] 2020-12-14 2020-12-14 Outpatient STLMLC STLMLC [id number] Common 00:00:00 00:00:00 [facility] 2020-12-08 2020-12-08 [facility] Geraldine Lopez [facility] [id number] Univers 10:38:10 23:59:00 Encounter Anni Navarrete [id number] ity [facility] [id number] [facility] [phone] [facility] [address] 2020-12-08 2020-12-[address] [facility] [id number] Univers 00:00:00 00:00:00 [id number] [facility] 2020-12-08 2020-12-[address] [facility] [id number] Univers 00:00:00 00:00:00 [facility] 2020-12-02 2020-12-[address] [facility] [id number] Univers 10:15:00 10:15:00 [id number] [facility] 2020-12-02 2020-12-[address] [facility] [id number] Univers 10:15:00 10:15:00 [facility] 2020-11-28 2020-11-28 Outpatient Omar BRITT [facility] [id number] Univers 13:00:00 13:00:00 JACKIE [id number] [facility] 2020-11-28 2020-11-28 [facility] [id number] Univers 13:00:00 13:00:00 JACKIE [facility] 2020-11-18 2020-11-18 Outpatient STLMLC STLMLC [id number] Common 00:00:00 00:00:00 [facility] 2020-09-27 2020-09-27 Outpatient STLMLC STLMLC [id number] Common 00:00:00 00:00:00 [facility] 2020-09-23 2020-09-23 Outpatient STLMLC STLMLC [id number] Common 00:00:00 00:00:00 [facility] 2020-09-14 2020-09-14 Outpatient R LORENZO [facility] [id number] Univers 10:00:00 10:00:00 MANUELA [id number] [facility] 2020-08-10 2020-08-10 [facility] [id number] Univers 10:51:57 11:29:37 Visit Manuela Navarrete [id number] [facility] [id number] Dorian Maldonado [phone] Vt dical [address] 2020-08-10 2020-08-10 Outpatient R LORENZO [facility] [id number] Univers 11:00:00 11:00:00 MANUELA [id number] [facility] 2020-08-10 2020-08-10 [facility] [id number] Univers 11:00:00 11:00:00 MANUELA [facility] 2020-08-01 2020-08-01 Outpatient STLMLC STLMLC [id number] Common 00:00:00 00:00:00 [facility] 2020-08-01 2020-08-01 Outpatient STLMLC STLMLC [id number] Common 00:00:00 00:00:00 [facility] 2020-07-30 2020-07-30 Outpatient [facility] [id number] Univers 11:10:00 11:10:00 [facility] 2020-07-09 2020-07-09 Outpatient R RAYNE [facility] [id number] Univers 10:55:00 10:55:00 ALICIA [facility] 2020-06-20 2020-06-20 Outpatient STLMLC STLMLC [id number] Common 00:00:00 00:00:00 [facility] 2020-06-13 2020-06-13 Outpatient STLMLC STLMLC [id number] Common 00:00:00 00:00:00 [facility] 2020-05-31 2020-05-31 Outpatient R LORENZO [facility] [id number] Univers 10:00:00 10:00:00 MANUELA [id number] [facility] 2020-05-23 2020-05-23 Outpatient STLMLC STLMLC [id number] Common 00:00:00 00:00:00 [facility] 2020-05-11 2020-05-11 Outpatient STLMLC STLMLC [id number] Common 00:00:00 00:00:00 [facility] 2020-05-10 2020-05-10 Outpatient STLMLC STLMLC [id number] Common 00:00:00 00:00:00 [facility] 2020-05-09 2020-05-09 Outpatient R [facility] [id number] Univers 09:40:00 09:40:00 [id number] [facility] 2020-05-09 2020-05-09 Out[facility] [id number] Univers 09:40:00 09:40:00 [facility] 2020-05-09 2020-05-09 Laboratory Lab, Adc Fam Pob I [facility] 1.2. [id number] [id number] Univers 09:14:14 09:34:14 [facility] [id number] ity Geraldine Lazcano 4.2.7.2.686 [place] Professio [phone] Vt dical nal [address] 2020-04-27 2020-04-27 Outpatient STLMLC STLMLC [id number] Common 00:00:00 00:00:00 [facility] 2020-04-18 2020-04-18 Telephone [facility] 1.2.840.114 [id number] Univers 00:00:00 00:00:00 Alonzo Navarrete 350.1.13.10 i [facility] [id number] [facility] Professio [phone] Me dical nal 204 [facility] 2020-04-14 2020-04-14 Office [facility] 1.2.840.114 [id number] 14:06:43 15:15:08 Visit Alonzo Navarrete [id number] [place] [id number] Professio [phone] [address] 2020-04-14 2020-04-14 Office Mateo [facility] [id number] Univers 14:06:43 15:15:08 Visit Alonzo Navarrete [id number] i [id number] [phone] [address] 2020-04-14 2020-04-14 Outpatient [facility] [id number] Univers 14:15:00 14:15:00 [facility] ity [facility] 2020-04-14 2020-04-14 Outpatient [facility] [id number] Univers 14:15:00 14:15:00 [facility] 2020-03-28 2020-03-28 Case [facility] [id number] Univers 00:00:00 00:00:00 Management Anni Navarrete [id number] [id number] [phone] [address] 2020-03-22 2020-03-22 Office [facility] [id number] Univers 13:11:22 14:42:57 Visit Anni Navarrete [id number] i [id number] [phone] [address] 2020-03-22 2020-03-22 Outpatient R JESSICA GERALDINE [facility] [id number] Univers 13:30:00 13:30:00 ity [facility] 2020-03-22 2020-03-22 Outpatient R JESSICA GERALDINE [facility] [id number] Univers 13:30:00 13:30:00 ity [facility] 2020-03-22 2020-03-22 Orders Doctor SALAS [id number] Univers 00:00:00 00:00:00 Only Unassigned, KEN 350.1.13.[address] [facility] [id number] Horace as [phone] [address] 2020-03-18 2020-03-18 Case Gramm, [facility] 1.2.840.114 [id number] Univers 00:00:00 00:00:00 Management Manuela Salmeron Cumming [id number] [id number] [phone] Vt dical [address] 2020-03-09 2020-03-09 Outpatient STLMLC STLMLC [id number] Common 00:00:00 00:00:00 [facility] 2020-02-24 2020-02-24 Outpatient STLMLC STLMLC [id number] Common 00:00:00 00:00:00 [facility] 2020-02-23 2020-02-23 Case Gramm, [facility] [id number] Univers 00:00:00 00:00:00 Management Manuelamartha Navarrete [id number] [id number] [phone] Vt dical nal [address] [place] [address] 2020-02-23 2020-02-23 Case Gramm, [facility] 1.2.840.114 [id number] Univers 00:00:00 00:00:00 Management Manuela Salmeron Cum[place] [id number] [id number] [phone] Vt dical [address] 2020-02-22 2020-02-22 Outpatient STLMLC STLMLC [id number] Common 00:00:00 00:00:00 [facility] 2020-02-22 2020-02-22 Outpatient STLMLC STLMLC [id number] Common 00:00:00 00:00:00 [facility] 2020-02-02 2020-02-02 Outpatient GERALDINE FREDERICK [facility] [id number] Univers 13:30:00 13:30:00 ity of [facility] 2020-02-01 2020-02-01 Outpatient STLMLC STLMLC [id number] Common 00:00:00 00:00:00 [facility] 2020-01-27 2020-01-27 Outpatient R KESHA LOPEZEN [facility] [id number] Univers 15:00:00 15:00:00 ity [facility] 2020-01-13 2020-01-13 Outpatient [facility] [id number] Common 06:42:00 06:42:[address] [facility] 2020-01-12 2020-01-12 Outpatient [facility] [id number] Common 11:00:00 11:00:[address] [facility] 2020-01-11 2020-01-11 Outpatient [facility] [id number] Common 16:19:00 16:19:[address] [facility] 2019-12-28 2019-12-28 Outpatient [facility] [id number] Common 11:00:00 11:00:[address] [facility] 2019-12-28 2019-12-28 Outpatient [facility] [id number] Common 09:48:00 09:48:[address] [facility] 2019-12-08 2019-12-08 Outpatient [facility] [id number] Univers 15:30:00 15:30:00 YISEL [facility] 2019-12-04 2019-12-[address] [facility] 1.2.840.114 [id number] Univers 00:00:00 00:00:00 Access [employer] [id number] it y of Cancer [id number] [facility] [phone] [address] 2019-10-27 2019-10-27 Out[facility] [id number] Common 15:00:00 15:00:[address] [facility] 2019-09-10 2019-09-10 Outpatient [facility] [id number] Common 10:40:00 10:40:[address] [employer] [facility] 2019-07-23 2019-07-23 Outpatient R [facility] [id number] Univers 14:20:00 14:20:00 [id number] ity [facility] 2019-07-16 2019-07-16 Outpatient [facility] [id number] Univers 09:25:17 23:59:00 IMELDA ity [facility] 2019-07-16 2019-07-16 [facility] 1.2.840.114 [id number] Univers 09:25:00 23:59:00 Encounter Imelda Gomez [facility] [id number] ity of Surgical [id number] Horace as Specialti [phone] Me dical es 809 [facility] 2019-07-16 2019-07-16 Office [facility] [id number] Univers 09:16:06 09:34:46 Visit Imelda Gomez [facility] [id number] it y of Surgical [id number] Horace as Specialti [phone] Me dical es 198 [facility] 2019-07-16 2019-07-16 Outpatient [facility] [id number] Univers 09:30:00 09:30:00 IMELDA [facility] 2019-06-28 2019-06-28 [place]gent [place], Geraldine [facility] [id number] Univers 15:36:37 16:13:25 Care Unknown, Attending Health 350.1.13.10 ity of Surgical [id number] Horace as Specialti [phone] Me dical es 370 [facility] 2019-06-11 2019-06-11 Outpatient [facility] [id number] Common 08:20:00 08:20:[address] [facility] 2019-06-08 2019-06-08 Outpatient [facility] [id number] Common 11:40:00 11:40:00 t Bone Bone [facility] Spiri t [facility] Joint [facility] 2019-06-08 2019-06-08 Out[facility] [id number] Common 08:52:00 08:52:00 t [place] [employer] [address] [facility] 2019-05-22 2019-05-22 Outpatient [facility] [id number] Common 10:59:00 10:59:00 t Bone Bone and Spiri t and Joint [facility] 2019-04-30 2019-04-30 Outpatient [facility] [id number] Common 13:31:00 13:31:00 t Bone Bone and Spiri t and Joint [facility] - [facility] 2019-04-21 2019-04-21 Outpatient [facility] [id number] Common 15:29:00 15:29:00 t Bone Bone and Spiri t and Joint [facility] - [facility] 2019-03-19 2019-03-19 Outpatient [facility] [id number] Common 08:57:00 08:57:00 t Bone Bone and Spiri t and Joint [facility] 2019-02-27 2019-02-27 Outpatient [facility] [id number] Common 10:38:00 10:38:[address] [facility] 2019-02-25 2019-02-25 Outpatient [facility] [id number] Common 11:40:00 11:40:00 t [place] [employer] [address] [facility] 2019-02-10 2019-02-10 Outpatient [facility] [id number] Common 08:52:00 08:52:00 t Bone Bone and Spiri t and Joint [facility] 2019-01-29 2019-01-29 Office Geraldine Lopez [facility] [id number] Univers 13:04:07 14:20:56 Visit Anni Navarrete [id number] [id number] [phone] Vt dical nal 134 [facility] 2019-01-29 2019-01-29 Outpatient Angela Millert [id number] Common 09:00:00 09:00:00 t Bone Bone and Spiri t and Joint [facility] 2019-01-29 2019-01-29 Orders Doctor MARITZA 1.2.840.[id number] [place] [address] 00:00:00 00:00:00 Only Unassigned, KEN 350.1.13.10 ity of [place] [facility] [id number] Horace as [phone] [address] 2019-01-21 2019-01-21 Outpatient Angela Millert [id number] Common 10:40:00 10:40:[address] [facility] 2019-01-20 2019-01-20 Outpatient Angela Saavedra [id number] Common 10:36:00 10:36:00 t [place] [employer] [address] [facility] 2019-01-15 2019-01-15 Telephone Geraldine Lopez [facility] 1.2.840.114 [id number] Univers 00:00:00 00:00:00 Cam Cumming 350.1.13.10 i [id number] [phone] Vt dical nal [address] [place] [address] 2018-12-17 2018-12-17 Telephone Geraldine Lopez [facility] 1.2.840.114 [id number] Univers 00:00:00 00:00:00 Cam Cumming 350.1.13.10 i [id number] [phone] Vt dical nal [address] [place] [address] 2018-12-17 2018-12-17 Case Geraldine Lopez [facility] [id number] Univers 00:00:00 00:00:00 Management Cam Cumming [id number] [id number] [phone] Vt dical nal [address] 2018-12-05 2018-12-05 [facility] Geraldine Lopez [facility] 1.2.840.114 [id number] [facility] 15:56:50 23:59:00 Encounter Anni Navarrete 350.1.13.10 Patric [id number] [facility] [phone] [facility] [address] 2018-11-28 2018-11-28 Out[facility] [id number] Common 15:12:00 15:12:[address] [facility] 2018-11-20 2018-11-20 Outpatient [facility] [id number] Common 11:00:00 11:00:00 t Bone Bone and Spiri t and Joint [facility] 2018-11-11 2018-11-11 Outpatient [facility] [id number] Common 14:45:00 14:45:[address] [facility] 2018-11-11 2018-11-11 Outpatient [facility] [id number] Common 09:30:00 09:30:00 t Bone Bone and Spiri t and Joint [facility] - [facility] 2018-11-10 2018-11-10 Outpatient [facility] [id number] Common 16:06:00 16:06:[address] [facility] 2018-11-05 2018-11-05 Outpatient [facility] [id number] Common 16:18:00 16:18:[address] [facility] 2018-11-04 2018-11-04 Outpatient [facility] [id number] Common 14:30:00 14:30:00 t Bone Bone and Spiri t and Joint [facility] 2018-10-22 2018-10-22 Outpatient [facility] [id number] Common 14:50:00 14:50:[address] [facility] 2018-10-17 2018-10-17 Out[facility] [id number] Common 10:00:00 10:00:00 t Bone Bone and Spiri t and Joint Joint - [facility] 2018-09-23 2018-09-23 Out[facility] [id number] Common 16:54:00 16:54:00 t Bone Bone and Spiri t and Joint Joint - [facility] 2018-08-29 2018-08-29 Outpatient [facility] [id number] Common 16:00:00 16:00:[address] [facility] 2018-08-15 2018-08-15 Outpatient [facility] [id number] Common 16:55:00 16:55:[address] [facility] 2018-08-08 2018-08-08 Outpatient [facility] [id number] Common 16:38:00 16:38:[address] [facility] 2018-07-24 2018-07-24 Outpatient [facility] [id number] Common 15:33:00 15:33:[address] [facility] 2018-06-30 2018-06-30 Outpatient [facility] [id number] Common 10:15:00 10:15:[address] [facility] 2018-06-25 2018-06-25 Outpatient [facility] [id number] Common 13:03:00 13:03:[address] [facility] 2017-11-14 2017-11-14 Outpatient [facility] [id number] Common 09:00:00 09:00:00 t Urgent Urgent Care S p[facility] 2017-09-10 2017-09-10 Outpatient [facility] [id number] Common 16:52:00 16:52:[address] [facility] 2017-08-15 2017-08-15 Outpatient [facility] [id number] Common 07:11:00 07:11:[address] [employer] [facility] 2017-07-31 2017-07-31 Outpatient [facility] [id number] Common 15:00:00 15:00:[address] i-Nalysis Spir [address] [facility] Results Test Description Test Time Test Comments Results Result Comments Source POCT URINALYSIS W SPECIFIC GRAVITY 2021-03-28 17:30:00 Test Item Value Reference Range Interpretation Comme nts POCT U SP GRAV (test code = 1.015 mg/dl 1.005-1.025 3255) POCT PH U (test code = 3254) 6 mg/dl 5-8 POCT U LEUK EST (test code = neg Negative - Negative 3263) POCT U NIT (test code = 3262) neg Negative - Negative POCT U PROT (test code = 3259) neg Negative - Negative POCT U GLU (test code = 3256) neg Negative - Negative POCT U KETONE (test code = neg Negative - Negative 3258) POCT U UROBILI (test code = 8 mg/dl 0.2-1 A 3260) POCT U BILI (test code = 3261) neg Negative - Negative POCT U BLD (test code = 3257) neg Negative - Negative POCT U COLOR (test code = 3266) dark POCT U APPEAR (test code = clear 3267) JESSE (test code = JESSE) accurate development and interpretation of all internal controls Lab Interpretation (test code = Abnormal 58868-6) [facility], [id number] 16:04:00 Test Item Value Reference Range Interpretation Comments POCT U SP GRAV (test code = 1.020 mg/dl 1.005-1.025 3255) POCT PH U (test code = 3254) 6.5 mg/dl 5-8 POCT U LEUK EST (test code = negative Negative - Negative 3263) POCT U NIT (test code = 3262) negative Negative - Negative POCT U PROT (test code = negative Negative - Negative 3259) POCT U GLU (test code = 3256) negative Negative - Negative POCT U KETONE (test code = negative Negative - Negative 3258) POCT U UROBILI (test code = 0.2 mg/dl 0.2-1 3260) POCT U BILI (test code = negative Negative - Negative 3261) POCT U BLD (test code = 3257) negative Negative - Negative POCT U COLOR (test code = yellow 3266) POCT U APPEAR (test code = clear 3267) [facility] URINALYSIS, [id number] 16:04:00 Test Item Value Reference Range Interpretation Comments POCT U SP GRAV (test code = 1.020 mg/dl 1.005-1.025 3255) POCT PH U (test code = 3254) 6.5 mg/dl 5-8 POCT U LEUK EST (test code = negative Negative - Negative 3263) POCT U NIT (test code = 3262) negative Negative - Negative POCT U PROT (test code = negative Negative - Negative 3259) POCT U GLU (test code = 3256) negative Negative - Negative POCT U KETONE (test code = negative Negative - Negative 3258) POCT U UROBILI (test code = 0.2 mg/dl 0.2-1 3260) POCT U BILI (test code = negative Negative - Negative 3261) POCT U BLD (test code = 3257) negative Negative - Negative POCT U COLOR (test code = yellow 3266) POCT U APPEAR (test code = clear 3267) [facility] URINALYSIS, [id number] 20:43:00 Test Item Value Reference Range Interpretation Comments POCT U SP GRAV (test code = 1.020 mg/dl 1.005-1.025 3255) POCT PH U (test code = 3254) 7.0 mg/dl 5-8 POCT U LEUK EST (test code = trace Negative - Negative 3263) POCT U NIT (test code = 3262) positive Negative - Negative POCT U PROT (test code = negative Negative - Negative 3259) POCT U GLU (test code = 3256) negative Negative - Negative POCT U KETONE (test code = negative Negative - Negative 3258) POCT U UROBILI (test code = 1.0 mg/dl 0.2-1 3260) POCT U BILI (test code = negative Negative - Negative 3261) POCT U BLD (test code = 3257) negative Negative - Negative POCT U COLOR (test code = yellow 3266) POCT U APPEAR (test code = clear 3267) [facility] URINALYSIS, [id number] 20:43:00 Test Item Value Reference Range Interpretation Comments POCT U SP GRAV (test code = 1.020 mg/dl 1.005-1.025 5) POCT PH U (test code = 3254) 7.0 mg/dl 5-8 POCT U LEUK EST (test code = trace Negative - Negative 3263) POCT U NIT (test code = 3262) positive Negative - Negative POCT U PROT (test code = negative Negative - Negative 3259) POCT U GLU (test code = 3256) negative Negative - Negative POCT U KETONE (test code = negative Negative - Negative 3258) POCT U UROBILI (test code = 1.0 mg/dl 0.2-1 0) POCT U BILI (test code = negative Negative - Negative 3261) POCT U BLD (test code = 3257) negative Negative - Negative POCT U COLOR (test code = yellow 3266) POCT U APPEAR (test code = clear 3267) [facility] URINALYSIS W/O SPECIFIC [id number] 20:26:00 Test Item Value Reference Range Interpretation Comments POCT PH U (test code = 3254) 5 mg/dl 5-8 POCT U LEUK EST (test code = Negative Negative - Negative 3) POCT U NIT (test code = 3262) Negative Negative - Negative POCT U PROT (test code = 3259) Negative Negative - Negative POCT U GLU (test code = 3256) Negative Negative - Negative POCT U KETONE (test code = 3258) Negative Negative - Negative POCT U BLD (test code = 3257) Negative Negative - Negative [facility] URINALYSIS W/O SPECIFIC [id number] 20:26:00 Test Item Value Reference Range Interpretation Comments POCT PH U (test code = 3254) 5 mg/dl 5-8 POCT U LEUK EST (test code = Negative Negative - Negative 3263) POCT U NIT (test code = 3262) Negative Negative - Negative POCT U PROT (test code = 3259) Negative Negative - Negative POCT U GLU (test code = 3256) Negative Negative - Negative POCT U KETONE (test code = 3258) Negative Negative - Negative POCT U BLD (test code = 3257) Negative Negative - Negative [facility] [id number] 11:54:00 Test Item Value Reference Range Interpretation Comments SODIUM (test code = NA) 143 mmol/L 134-147 N POTASSIUM (test code = 4.4 mmol/L 3.4-5.0 N K) CHLORIDE (test code = 109 mmol/L 100-108 H CL) CARBON DIOXIDE (test 25 mmol/L 21-32 N code = CO2) ANION GAP (test code = 9.0 GAP calc 4.0-15.0 N GAP) GLUCOSE (test code = 130 MG/DL 70-110 H GLU) BLOOD UREA NITROGEN 13 MG/DL 7-18 N (test code = BUN) GLOMERULAR FILTRATION >=60 max estimate >60 RATE (test code = GFR) estGFR CREATININE (test code = 0.7 MG/DL 0.6-1.0 N CREAT) CALCIUM (test code = CA) 8.3 MG/DL 8.5-10.1 L COVID 19 INHOUSE [id number] 11:53:00 Test Item Value Reference Range Interpretation Comments COVID 19 INHOUSE AG NEGATIVE Negative Per [facility] facturer, (test code = negative result s should [id number]) be treated aspr esumptive and, if inconsi stent with clinical signs andsymptoms or necessary for patient man agement, should betested with an alternative mol ecular assay. Negative resultsdo not preclude SA RS-CoV-2 infection and s hould not be usedas the s ole basis for patient man agement decisions. Neg ative results should be considered in t he context of apatient's r ecent exposures, hist ory, presence of cli nicalsigns and symptoms co nsistent with COVID-19. CBC W/AUTO [id number] 11:40:00 Test Item Value Reference Range Interpretation Comments WHITE BLOOD CELL (test code = 5.2 K/mm3 3.5-11.0 N WBC) RED BLOOD CELL (test code = 4.63 M/mm3 4.70-6.10 L RBC) HEMOGLOBIN (test code = HGB) 12.6 G/DL 10.4-14.9 N HEMATOCRIT (test code = HCT) 39.2 % 31.5-44.1 N MEAN CELL VOLUME (test code = 84.7 Fl 84.5-98.6 N MCV) MEAN CELL HGB (test code = MCH) 27.2 pg 27.0-34.2 N MEAN CELL HGB CONCETRATION 32.1 G/DL 31.5-34.0 N (test code = MCHC) RED CELL DISTRIBUTION WIDTH 15.3 SD 11.5-14.5 H (test code = RDW) PLATELET COUNT (test code = 107 K/mm3 150-450 L PLT) MEAN PLATELET VOLUME (test code 10.00 fL 7.0-10.5 N = MPV) NEUTROPHIL % (test code = NT%) 72.9 % 40-76 N IMMATURE GRANULOCYTE % (test 0.4 % 0.0-5.0 N code = IG%) LYMPHOCYTE % (test code = LY%) 19.5 % 20.5-51.1 L MONOCYTE % (test code = MO%) 5.7 % 1.7-9.3 N EOSINOPHIL % (test code = EO%) 1.1 % 0.0-6.0 N BASOPHIL % (test code = BA%) 0.4 % 0.0-2.0 N NUCLEATED RBC % (test code = 0.0 /100WBC% 0.0-1.0 N NRBC%) NEUTROPHIL # (test code = NT#) 3.8 K/mm3 1.8-7.6 N IMMATURE GRANULOCYTE # (test 0.02 x10 3/uL 0.00-0.03 N code = IG#) LYMPHOCYTE # (test code = LY#) 1.0 K/mm3 0.6-3.2 N MONOCYTE # (test code = MO#) 0.3 K/mm3 0.3-1.1 N EOSINOPHIL # (test code = EO#) 0.1 K/mm3 0.0-0.4 N BASOPHIL # (test code = BA#) 0.0 K/mm3 0.0-0.1 N NUCLEATED RBC # (test code = 0.0 K/mm3 0.0-0.1 N NRBC#) MANUAL DIFF REQUIRED (test code NO DIFF/SCN CRITERIA = MDIFF) XR ELBOW <3 VW [id number] 16:43:43[facility]2019-06-28 22:09:00 Test Item Value Reference Range Interpretation Comments POCT INFLUENZA A (test neg Negative - code = 3840) Negative POCT INFLUENZA B (test neg Negative - code = 3841) Negative JESSE (test code = JESSE) accurate development and interpretation of all internal controls Lab Interpretation Normal (test code = 35899-7) [facility] GRP A STREP (MOLECULAR)2019-06-28 22:00:00 Test Item Value Reference Range Interpretation Comments POCT GP A STREP (test pos Negative - code = 55108-9) Negative JESSE (test code = JESSE) accurate development and interpretation of all internal controls Lab Interpretation Normal (test code = 18376-5) [facility] [id number] 18:25:00 Test Item Value Reference Range Interpretation Comments POCT PREG (test code = 1605) Negative On board controls acceptable with C Yes Line (test code = 3574) POCT PREG LOT # (test code = 3575) POCT PREG TEST DATE (test code = 3576) [facility] [id number] 18:25:00 Test Item Value Reference Range Interpretation Comments POCT PREG (test code = 1605) Negative On board controls acceptable with C Yes Line (test code = 3574) POCT PREG LOT # (test code = 3575) POCT PREG TEST DATE (test code = 3576) [facility] [id number] 23:11:35 Intramural leiomyoma . Prior oophorectomy. Otherwise, a normal sonographic examination of the pelvis. IMariano MD., have reviewed this study and agree with the abovereport.EXAM: PELVIC ULTRASOUND, TRANSABDOMINAL AND TRANSVAGINAL HISTORY: Postmenopausal spotting, hx of breast cancer on anastrazo le COMPARISON: Pelvic ultrasound 12/13/2017 FINDINGS: UTERUS: The uterus measures 9.4 x 4.7 x 5.2 cm. The endometrium ishomogeneous and measures 5 mm in thickness. Within the myometrium of theuterine fundus lies a 3.3 x 3.4 x 3.2 cm round, heterogenous structure thatdemonstrates internal acoustic shadowing consistent with intramuralleiomyoma. Measured 3 cm on prior examination. Nabothian cysts are seen inthe cervix. OVARIES: The right ovary measures 2.6 x 1.4 x 2 cm (3.9 mL). The left ovaryhas beensurgically removed. No adnexal masses. No?free fluid. [facility], Radiant Results Inft User - 12/05/2018 6:11 PM CDTEXAM: PELVIC ULTRASOUND, TRANSABDOMINAL AND TRANSVAGINALHISTORY: Postmenopausal spotting, hx of breast cancer on anastrazole COMPARISON: Pelvic ultrasound 12/13/2017FINDINGS: UTERUS: The uterusmeasures 9.4 x 4.7 x 5.2 cm. The endometrium ishomogeneous and measures 5 mm in thickness. Within the myometrium of theuterine fundus lies a 3.3 x 3.4 x 3.2 cm round, heterogenous structure thatdemonstrates internal acoustic shadowing consistent with intramuralleiomyoma. Measured 3 cm on prior examination. Nabothian cysts are seen inthe cervix. OVARIES: The right ovary measures 2.6 x 1.4 x 2 cm (3.9 mL). The left ovaryhas been surgically removed. No adnexal masses.No free fluid.IMPRESSIONIntramuralleiomyoma .Prior oophorectomy.Otherwise, a normal sonographic examination of the pelvis.I, Js Monzon MD., have reviewed this study and agree with the abovereport.[facility]
[2021-10-17 20:46] LABS: Lymphocytes % 22.8 % (15.3-44.8); MPV 8.4 fL (7.6-11.3); RBC Red Blood Cell Count 4.31 M/uL (3.86-4.86)
[2021-10-17] MEDS ORDERED: NA CHLORIDE 0.9% 500 ML ONE (20:49)
[2021-10-17 20:52] LABS: Protime INR 1.05
[2021-10-17 21:09] LABS: Albumin 3.2 g/dL (3.4-5.0); Bilirubin Direct 0.3 mg/dL (0-0.2); Bilirubin Total 0.8 mg/dL (0.2-1.0); Magnesium 2.2 mg/dL (1.8-2.4); Potassium 4.1 mmol/L (3.5-5.1); Protein, Total 6.4 g/dL (6.4-8.2); Troponin High Sensitivity 4.8 pg/mL (<58.9)
--- NOTE | 2021-10-17 22:10 | EDPHYS ---
Physician Documentation [facility] Angela Name: Adry De Guzman Age: 61 yrs Sex: Female : 1960 Arrival Date: 10/17/2021 Time: 19:14 Bed 15 Private MD: ED Physician Jose Rafael Panda HPI: 10/17 20:06 This 61 yrs old Female presents to ER via Ambulatory with complaints of mh7 Shortness Of Breath. 20:06 The patient has shortness of breath at rest, with light activity. Onset: The mh7 symptoms/episode began/occurred 2 week(s) ago. Duration: The symptoms are intermittent, with no pattern. The patient's shortness of breath is aggravated by exertion, light activity, is alleviated by nothing. Associated signs and symptoms: Pertinent positives: dizziness, Pertinent negatives: chest pain, non-productive cough, productive cough, diaphoresis, fever, hemoptysis, loss of consciousness, nausea, numbness in extremities, visual changes, vomiting. Severity of symptoms: At their worst the symptoms were moderate yesterday, in the emergency department the symptoms have improved moderately. The patient has been recently seen by a physician: the patient's primary care provider, earlier today. Historical: - Allergies: 19:17 Lisinopril; jb4 - Home Meds: 19:17 levothyroxine 112 mcg tab 1 tab once daily [Active]; metformin 250 Oral Tb24 2 times jb4 per day [Active]; nadolol 40 mg Oral tab 1 tab once daily [Active]; - PMHx: 19:17 BREAST CA; Diabetes - NIDDM; Hypertension; Hypothyroidism; liver fibrosis; Osteoporosis;jb4 - PSHx: 10/18 00:06 Lymph node removed from L side; lp1 - Immunization history:: Adult Immunizations up to date. - Social history:: Smoking status: Patient/guardian denies using tobacco, the patient reports quitting approximately 15 years ago. ROS: 10/17 20:06 Constitutional: Negative for fever, chills, and weight loss, Eyes: Negative for injury, mh7 pain, redness, and discharge, ENT: Negative for injury, pain, and discharge, Neck: Negative for injury, pain, and swelling, Cardiovascular: Negative for chest pain, palpitations, and edema, Abdomen/GI: Negative for abdominal pain, nausea, vomiting, diarrhea, and constipation, Back: Negative for injury and pain, : Negative for injury, bleeding, discharge, and swelling, MS/Extremity: Negative for injury and deformity, Skin: Negative for injury, rash, and discoloration, Neuro: Negative for headache, weakness, numbness, tingling, and seizure, Psych: Negative for depression, anxiety, suicide ideation, homicidal ideation, and hallucinations, Allergy/Immunology: Negative for hives, rash, and allergies, Endocrine: Negative for neck swelling, polydipsia, polyuria, polyphagia, and marked weight changes, Hematologic/Lymphatic: Negative for swollen nodes, abnormal bleeding, and unusual bruising. Exam: 20:06 Constitutional: This is a well developed, well nourished patient who is awake, alert, mh7 and in no acute distress. Head/Face: Normocephalic, atraumatic. Eyes: Pupils equal round and reactive to light, extra-ocular motions intact. Lids and lashes normal. Conjunctiva and sclera are non-icteric and not injected. Cornea within normal limits. Periorbital areas with no swelling, redness, or edema. Neck: Trachea midline, no thyromegaly or masses palpated, and no cervical lymphadenopathy. Supple, full range of motion without nuchal rigidity, or vertebral point tenderness. No Meningismus. Chest/axilla: Normal chest wall appearance and motion. Nontender with no deformity. No lesions are appreciated. Cardiovascular: Regular rate and rhythm with a normal S1 and S2. No gallops, murmurs, or rubs. Normal PMI, no JVD. No pulse deficits. Respiratory: Lungs have equal breath sounds bilaterally, clear to auscultation and percussion. No rales, rhonchi or wheezes noted. No increased work of breathing, no retractions or nasal flaring. Abdomen/GI: Soft, non-tender, with normal bowel sounds. No distension or tympany. No guarding or rebound. No evidence of tenderness throughout. Back: No spinal tenderness. No costovertebral tenderness. Full range of motion. Skin: Warm, dry with normal turgor. Normal color with no rashes, no lesions, and no evidence of cellulitis. MS/ Extremity: Pulses equal, no cyanosis. Neurovascular intact. Full, normal range of motion. Neuro: Awake and alert, GCS 15, oriented to person, place, time, and situation. Cranial nerves II-XII grossly intact. Motor strength 5/5 in all extremities. Sensory grossly intact. Cerebellar exam normal. Normal gait. Psych: Awake, alert, with orientation to person, place and time. Behavior, mood, and affect are within normal limits. Vital Signs: 19:18 BP 101 / 43; Pulse 44; Resp 18; Temp 97.1(TE); Pulse Ox 96% on R/A; Weight 112.49 kg jb4 (R); Height 5 ft. 5 in. (165.10 cm); Pain 0/10; 22:00 BP 128 / 57; Pulse 55; Resp 20; Pulse Ox 100% on R/A; lp1 23:00 BP 110 / 40; Pulse 54; Resp 20; Pulse Ox 100% on R/A; lp1 10/18 00:05 BP 121 / 63; Pulse 55; Resp 20; Pulse Ox 98% on R/A; Pain 0/10; lp1 10/17 19:18 Body Mass Index 41.27 (112.49 kg, 165.10 cm) jb4 MDM: 10/17 22:03 Differential diagnosis: Anemia Anxiety Reaction asthma, Bronchitis CHF exacerbation, [facility] Chronic Obstructive Pulmonary Disease Myocardial Infarction pneumonia, Pneumothorax Psychogenic pulmonary edema, Pulmonary Embolism reactive airway disease, Unstable Angina. Data reviewed: vital signs, nurses notes, lab test result(s), cardiac enzymes, CBC, electrolytes, EKG, radiologic studies, Chest x ray done today ordered by PCP prior to presenting to the ED. Data interpreted: Pulse oximetry: on room air is 96 %. Interpretation: normal. Counseling: I had a detailed discussion with the patient and/or guardian regarding: the historical points, exam findings, and any diagnostic results supporting the discharge/admit diagnosis, lab results, radiology results, the need for further work-up and treatment in the hospital. Response to treatment: the patient's symptoms have mildly improved after treatment. 22:06 Patient medically screened. [facility] 10/17 20:00 Order name: Basic Metabolic Panel; Complete Time: 21:14 [facility] 10/17 20:00 Order name: CBC with Diff; Complete Time: 21:14 [facility] 10/17 20:00 Order name: D-Dimer; Complete Time: 21:14 [facility] 10/17 20:00 Order name: LFT's; Complete Time: 21:14 [facility] 10/17 20:00 Order name: Magnesium; Complete Time: 21:14 [facility] 10/17 20:00 Order name: NT PRO-BNP; Complete Time: 21:14 [facility] 10/17 19:47 Order name: EKG; Complete Time: 19:48 1 10/17 19:47 Order name: EKG - Nurse/Tech; Complete Time: 19:47 1 10/17 20:00 Order name: PT-INR; Complete Time: 21:14 [facility] 10/17 20:00 Order name: Troponin HS; Complete Time: 21:14 [facility] 10/17 20:00 Order name: Cardiac monitoring; Complete Time: 20:16 [facility] 10/17 20:05 Order name: COVID-19 SARS RT PCR (Document "Date of Onset" if Symptomatic); Complete [facility] Time: 21:36 10/17 22:51 Order name: Urine Dipstick-Ancillary; Complete Time: 23:36 [facility] 10/17 20:00 Order name: IV Saline Lock; Complete Time: 20:35 [facility] 10/17 20:00 Order name: Labs collected and sent; Complete Time: 20:35 [facility] 10/17 20:00 Order name: O2 Per Protocol; Complete Time: 20:16 [facility] 10/17 20:00 Order name: O2 Sat Monitoring; Complete Time: 20:16 [facility] 10/17 20:00 Order name: Urine Dipstick-Ancillary (obtain specimen); Complete Time: 22:54 7 Administered Medications: 21:10 Drug: NS 0.9% 500 ml Route: IV; Rate: bolus; Site: right antecubital; lp1 22:00 Follow up: IV Status: Completed infusion; IV Intake: 500ml lp1 Disposition Summary: 10/17/21 22:06 Hospitalization Ordered Hospitalization Status: Inpatient Admission [facility] Provider: Marcos Bowman [facility] Location: Telemetry/MedSurg (Inpatient) [facility] Condition: Stable [facility] Problem: new [facility] Symptoms: have improved [facility] Bed/Room Type: Standard [facility] Room Assignment: 409(10/18/21 00:04) mw Diagnosis - Dyspnea [facility] - Bradycardia, unspecified - symptomatic [facility] Forms: - Medication Reconciliation Form [facility] - SBAR form [facility] Signatures: Dispatcher [employer] EDMS Zari Rasheed RN RN mw Katy Crowder RN RN lp1 Won Snyder, SENIOR CONTROLLER-C SENIOR CONTROLLER-Cla1 Cabrera Jordan RN RN jb4 Jose Rafael Panda MD MD mh7 Corrections: (The following items were deleted from the chart) 10/18 00:04 10/17 22:06 phill compa
--- NOTE | 2021-10-17 22:10 | ER ---
Nurse's Notes [facility] Angela Name: Adry De Guzman Age: 61 yrs Sex: Female : 1960 Arrival Date: 10/17/2021 Time: 19:14 Bed 15 Private MD: Diagnosis: Dyspnea;Bradycardia, unspecified-symptomatic Presentation: 10/17 19:16 Chief complaint: Patient states: I am feeling short of breath. It started 2 weeks ago jb4 and it is worse now. Coronavirus screen: At this time, the client does not indicate any symptoms associated with coronavirus-19. Ebola Screen: No symptoms or risks identified at this time. Initial Sepsis Screen: Does the patient meet any 2 criteria?. Onset of symptoms was October 17, 2021. 19:16 Method Of Arrival: Ambulatory jb4 19:18 Initial Sepsis Screen: Does the patient meet any 2 criteria? No. Patient's initial jb4 sepsis screen is negative. Does the patient have a suspected source of infection? No. Patient's initial sepsis screen is negative. Risk Assessment: Do you want to hurt yourself or someone else? Patient reports no desire to harm self or others. 19:18 Acuity: JULEE 2 jb4 Historical: - Allergies: 19:17 Lisinopril; jb4 - Home Meds: 19:17 levothyroxine 112 mcg tab 1 tab once daily [Active]; metformin 250 Oral Tb24 2 times jb4 per day [Active]; nadolol 40 mg Oral tab 1 tab once daily [Active]; - PMHx: 19:17 BREAST CA; Diabetes - NIDDM; Hypertension; Hypothyroidism; liver fibrosis; Osteoporosis;jb4 - PSHx: 10/18 00:06 Lymph node removed from L side; lp1 - Immunization history:: Adult Immunizations up to date. - Social history:: Smoking status: Patient/guardian denies using tobacco, the patient reports quitting approximately 15 years ago. Screenin/07 21:15 Abuse screen: Denies threats or abuse. Denies injuries from another. Nutritional lp1 screening: No deficits noted. Tuberculosis screening: No symptoms or risk factors identified. Fall Risk None identified. Assessment: 20:45 General: Appears in no apparent distress. Behavior is calm, cooperative. Pain: Denies lp1 pain. Neuro: Level of Consciousness is awake, alert, obeys commands, Oriented to person, place, time, situation, Gait is steady. Cardiovascular: Patient's skin is warm and dry. Rhythm is sinus bradycardia. Respiratory: Reports shortness of breath on exertion that has been ongoing Airway is patent Respiratory effort is even, Breath sounds are clear bilaterally. Onset: The symptoms/episode began/occurred at an unknown time. the patient has mild shortness of breath. GI: No signs and/or symptoms were reported involving the gastrointestinal system. : No signs and/or symptoms were reported regarding the genitourinary system. EENT: No signs and/or symptoms were reported regarding the EENT system. Derm: Skin is pink, warm \\T\\ dry. Musculoskeletal: No deficits noted. 22:30 Reassessment: Patient appears in no apparent distress at this time. Patient is alert, lp1 oriented x 3, equal unlabored respirations, skin warm/dry/pink. Patient aware of pending admission; up to bathroom independently. 23:30 Reassessment: Patient appears in no apparent distress at this time. Patient is alert, lp1 oriented x 3, equal unlabored respirations, skin warm/dry/pink. Patient aware of admission, pending room assignment. Vital Signs: 19:18 BP 101 / 43; Pulse 44; Resp 18; Temp 97.1(TE); Pulse Ox 96% on R/A; Weight 112.49 kg jb4 (R); Height 5 ft. 5 in. (165.10 cm); Pain 0/10; 22:00 BP 128 / 57; Pulse 55; Resp 20; Pulse Ox 100% on R/A; lp1 23:00 BP 110 / 40; Pulse 54; Resp 20; Pulse Ox 100% on R/A; lp1 10/18 00:05 BP 121 / 63; Pulse 55; Resp 20; Pulse Ox 98% on R/A; Pain 0/10; lp1 10/17 19:18 Body Mass Index 41.27 (112.49 kg, 165.10 cm) jb4 ED Course: 10/17 19:14 Patient arrived in ED. ja2 19:21 Triage completed. jb4 19:21 Arm band placed on. jb4 19:49 Jose Rafael Panda MD is Attending Physician. 7 20:15 Katy Crowder RN is Primary Nurse. lp1 20:32 COVID swab sent to lab. Inserted saline lock: 20 gauge in right antecubital area, using aseptic technique. Blood collected. 20:36 Basic Metabolic Panel Sent. wm 20:36 CBC with Diff Sent. wm 20:36 D-Dimer Sent. wm 20:36 Troponin HS Sent. wm 20:36 PT-INR Sent. wm 20:36 NT PRO-BNP Sent. wm 20:36 Magnesium Sent. wm 20:36 LFT's Sent. wm 20:36 COVID-19 SARS RT PCR (Document "Date of Onset" if Symptomatic) Sent. wm 21:15 Patient has correct armband on for positive identification. Placed in gown. Bed in low lp1 position. Call light in reach. Client placed on continuous cardiac and pulse oximetry monitoring. NIBP monitoring applied. 22:05 Marcos Bowman MD is Hospitalizing Provider. [facility] 22:56 No provider procedures requiring assistance completed. Patient admitted, IV remains in lp1 place. Administered Medications: 21:10 Drug: NS 0.9% 500 ml Route: IV; Rate: bolus; Site: right antecubital; lp1 22:00 Follow up: IV Status: Completed infusion; IV Intake: 500ml lp1 Medication: 22:56 VIS not applicable for this client. lp1 Intake: 22:00 IV: 500ml; Total: 500ml. lp1 Outcome: 22:06 Decision to Hospitalize by Provider. [facility] 23:21 Condition: stable lp1 23:21 Instructed on the need for admit. 06 00:14 Admitted to Tele room 409, with chart, Report called to JAN Fall lp1 00:18 Patient left the ED. lp1 Signatures: Katy Crowder RN RN lp1 Cabrera Jordan, JAN RN jb4 Jose Rafael Panda MD MD 7 Dawna Raman Karol Morgan Corrections: (The following items were deleted from the chart) 06 22:56 20:45 Respiratory: Reports shortness of breath on exertion that has been ongoing Airway lp1 is patent Respiratory effort is even, Breath sounds are clear bilaterally. lp1 10/18 00:08 06 20:45 Cardiovascular: Patient's skin is warm and dry. Rhythm is regular lp1 lp1
[2021-10-17 22:51] LABS: Urine Blood Negative (Negative); Urine Glucose Negative (Negative); Urine Protein Negative (Negative)
--- NOTE | 2021-10-17 22:51 | P.HP ---
Certification for Inpatient Patient admitted to: Observation With expected LOS: <2 Midnights Patient will require the following post-hospital care: None Practitioner: I am a practitioner with admitting privileges, knowledge of patient current condition, hospital course, and medical plan of care. Services: Services provided to patient in accordance with Admission requirements found in Title 42 Section 412.3 of the Code of Federal Regulations Patient History Date of Service: 10/17/21 History of Present Illness: 61-year-old female with history of diabetes mellitus type 2not insulin- dependent, hypertension, hypothyroidism, liver fibrosis with varices presents the emergency department for shortness of breath, near syncope. Patient and family report that her heart rate has been running low over the course last few days as low as 36 had a few episodes of near syncope during the day she was evaluated in the emergency department her initial heart rate was in the 40s and has been bouncing anywhere between 35 and 70 during her stay in the emergency department last few hours sinus rhythm to sinus bradycardia with frequent PACs. Medication review reveals patient takes nadolol as recommended by her GI doctor she had not had previous episodes of bradycardia or hypotension. Blood pressure was soft in the ER although it has improved at this time ED provider wishes to admit under observation for symptomatic bradycardia, near syncope. Her labs overall were unremarkable she reports that she had a cardiac work-up including echocardiogram in July of this year which was normal per her family. Allergies lisinopril Allergy (Verified 06/21/21 09:01) Cough Home Medications: Levothyroxine Sodium [Synthroid] 112 mg PO DAILY 08/11/11 nadoloL [Corgard] 40 mg PO DAILY 01/25/15 Metformin HCl [Glucophage] 250 mg PO BIDWM 06/14/16 Calcium Carbonate/Vitamin D3 [Caltrate 600 + D Tablet] 1 each PO DAILY 10/31/20 Risedronate Sodium [Actonel] 150 mg PO SEECOM 10/31/20 Sertraline [Zoloft] 100 mg PO DAILY 10/31/20 Omeprazole 20 mg PO PRN PRN 06/19/21 - Past Medical/Surgical History Diabetic: No -: Diabetes mellitus type 2not insulin-dependent -: Liver fibrosis with varices -: Hypothyroidism -: Cholecystectomy -: Appendectomy -: Left lumpectomy -: Psychosocial/ Personal History: Patient lives at home with family - Family History Father -: Heart disease - Social History Smoking Status: Never smoker Alcohol use: No CD- Drugs: No Caffeine use: Yes Place of Residence: Home Review of Systems 10-point ROS is otherwise unremarkable Respiratory: Shortness of Breath Cardiovascular: Light Headedness, As per HPI Physical Examination - Physical Exam General: Alert, In no apparent distress, Oriented x3 HEENT: Atraumatic, PERRLA, Mucous membr. moist/pink, EOMI, Sclerae nonicteric Neck: Supple, 2+ carotid pulse no bruit, No LAD, Without JVD or thyroid abnormality Respiratory: Clear to auscultation bilaterally, Normal air movement Cardiovascular: Normal S1 S2, Irregular heart rate/rhythm (Sinus bradycardia) Capillary refill: <2 Seconds Gastrointestinal: Normal bowel sounds, No tenderness Musculoskeletal: No tenderness Integumentary: No rashes Neurological: Normal speech, Normal strength at 5/5 x4 extr, Normal tone, Normal affect - Studies Laboratory Data (last 24 hrs) 10/17/21 20:20: PT 11.6, INR 1.05 10/17/21 20:20: WBC 4.3, Hgb 10.8 L, Hct 33.0 L, Plt Count 102 L 10/17/21 20:20: Sodium 140, Potassium 4.1, BUN 16, Creatinine 0.81, Glucose 107 H, Magnesium 2.2, Total Bilirubin 0.8, AST 23, ALT 29, Alkaline Phosphatase 83 Assessment and Plan - Plan Assessment: Symptomatic bradycardia History of liver fibrosis with varices Diabetes mellitus type [id number] Hypothyroidism Plan: Symptomatic bradycardia: Monitor on telemetry, cardiology consult in place. Hold patient's nadolol at this time. Patiently to follow-up with her chicken tender and GI team to determine her need for beta-john therapy and further adjustment. History of liver fibrosis with varices: Continue other home medications aside from beta-john, patient without any active bleeding at this time. Diabetes mellitus type [id number]: Mild sliding scale insulin Hypothyroidism: Obtain thyroid panel in the morning DVT PPX: Lovenox Code status: Full Discharge Plan: Home Plan to discharge in: 24 Hours - Advance Directives Does patient have a Living Will: No Does patient have a Durable POA for Healthcare: No - Code Status/Comfort Care Code Status Assessed: Yes (Full code) Critical Care: No Time Spent Managing Pts Care (In Minutes): 55
[2021-10-18] MEDS ORDERED: ONDANSETRON 4 MG/2 ML VIAL IV PRN (00:32)
[2021-10-18 02:45] VITALS: BMI 41.2
[2021-10-18 03:51] LABS: Absolute Lymphocytes (CBC) 0.8 K/uL (0.7-4.9); Hematocrit 31.6 % (36.0-45.0); MPV 8.2 fL (7.6-11.3); RBC Red Blood Cell Count 4.07 M/uL (3.86-4.86)
[2021-10-18 04:19] LABS: Albumin 2.8 g/dL (3.4-5.0); Bilirubin Total 0.7 mg/dL (0.2-1.0); Potassium 4.1 mmol/L (3.5-5.1); Protein, Total 5.8 g/dL (6.4-8.2); Thyroid Stimulating Hormone 3.5 uIU/mL (0.360-3.740)
[2021-10-18] MEDS: INSULIN -REGULAR HUMAN 50 UNIT/0.5 ML ML SQ SCH ×4 (07:30→21:00)
--- NOTE | 2021-10-18 07:53 | EKG ---
Test Date: 2021-10-17 Test Time: 19:24:57 Word Processing Supervisor: MEASUREMENT RESULTS: Intervals: Rate: 63 VA: 152 QRSD: 94 QT: 442 QTc: 452 [place]: P: 46 VA: 152 QRS: -2 T: -23 INTERPRETIVE STATEMENTS: Sinus rhythm with frequent premature ventricular complexes Low voltage QRS Cannot rule out Anterior infarct, age undetermined ST & T wave abnormality, consider lateral ischemia Abnormal ECG Compared to ECG 08/12/2011 07:04:52 Ventricular premature complex(es) now present Low QRS voltage now present ST (T wave) deviation now present Possible ischemia now present Myocardial infarct finding still present Electronically Signed On 10-18-21 07:52:29 CDT by Nadir Lambert
[2021-10-18] MEDS: ENOXAPARIN 40 MG/0.4 ML SQ SCH (09:00)
--- NOTE | 2021-10-18 16:27 | P.PN ---
Subjective Date of Service: 10/18/21 Subjective: No new changes, Improving Physical Examination - Vital Signs Temperature: 97.4 F Blood Pressure: 105/22 Pulse: 53 Respirations: 18 Pulse Ox (%): 99 - Physical Exam General: Alert, Oriented x3 HEENT: Atraumatic, Normocephalic Neck: Supple Respiratory: Normal air movement Cardiovascular: Normal S1 S2 Gastrointestinal: Soft and benign Musculoskeletal: No swelling Neurological: Normal speech - Studies Laboratory Data (last 24 hrs) 10/17/21 20:20: PT 11.6, INR 1.05 10/17/21 20:20: WBC 4.3, Hgb 10.8 L, Hct 33.0 L, Plt Count 102 L 10/17/21 20:20: Sodium 140, Potassium 4.1, BUN 16, Creatinine 0.81, Glucose 107 H, Magnesium 2.2, Total Bilirubin 0.8, AST 23, ALT 29, Alkaline Phosphatase 83 Assessment And Plan - Plan Liver cirrhosis History of esophageal varices Bradycardia Hypothyroidism Plan: Patient continues to have bradycardia despite holding nadolol doses. Bradycardia episodes and secondary to beta-john use. Digital Associate Media Director and cardiology to evaluate patient's medication for possible adjustment. Will continue to follow on telemetry. Continue to monitor labs.
[2021-10-19 02:07] VITALS: O2SAT 97
[2021-10-19] MEDS: INSULIN -REGULAR HUMAN 50 UNIT/0.5 ML ML SQ SCH (07:30)
--- NOTE | 2021-10-19 07:38 | ECHO ---
HEIGHT: 5 ft 5 in WEIGHT: 248 lb 0 oz DATE OF STUDY: 10/18/[address]: Nadir Lambert MD 2-DIMENSIONAL: YES M.MODE: YES DOPPLER: YES COLOR FLOW: YES TDS: PORTABLE: DEFINITY: BUBBLE STUDY: DIAGNOSIS: BRADYCARDIA CARDIAC HISTORY: CATHERIZATION: YES SURGERY: PROSTHETIC VALVE: PACEMAKER: MEASUREMENTS (cm) DIASTOLIC (NORMALS) SYSTOLIC (NORMALS) IVSd 1.0 (0.6-1.2) LA Diam 5.1 (1.9-4.0) LVEF 68% LVIDd 5.5 (3.5-5.7) LVIDs 3.4 (2.0-3.5) %FS 39% LVPWd 0.9 (0.6-1.2) Ao Diam 2.8 (2.0-3.7) 2 DIMENSIONAL ASSESSMENT: RIGHT ATRIUM: NORMAL LEFT ATRIUM: NORMAL RIGHT VENTRICLE: NORMAL LEFT VENTRICLE: NORMAL TRICUSPID VALVE: NORMAL MITRAL VALVE: NORMAL PULMONIC VALVE: NORMAL AORTIC VALVE: NORMAL PERICARDIAL EFFUSION: NONE AORTIC ROOT: NORMAL LEFT VENTRICULAR WALL MOTION: NORMAL DOPPLER/COLOR FLOW: MILD TRICUSPID REGURGITATION. RIGHT VENTRICULAR SYSTOLIC PRESSURE 36 mmHg. COMMENTS: NORMAL LEFT VENTRICULAR SIZE AND FUNCTION. MILD TRICUSPID REGURGITATION. NORMAL RIGHT VENTRICULAR SYSTOLIC PRESSURE. NO WALL MOTION ABNORMALITY. TECHNOLOGIST: SERGIO TRACEY
[2021-10-19] MEDS: ENOXAPARIN 40 MG/0.4 ML SQ SCH (08:08)
--- NOTE | 2021-10-19 11:07 | P.DS ---
Admission Date: 10/17/21 Discharge Date: 10/19/21 Disposition: ROUTINE DISCHARGE Discharge Condition: GOOD Brief History of Present Illness: 61-year-old female with history of diabetes mellitus type 2not insulin- dependent, hypertension, hypothyroidism, liver fibrosis with varices presents the emergency department for shortness of breath, near syncope. Patient and family report that her heart rate has been running low over the course last few days as low as 36 had a few episodes of near syncope during the day she was evaluated in the emergency department her initial heart rate was in the 40s and has been bouncing anywhere between 35 and 70 during her stay in the emergency department last few hours sinus rhythm to sinus bradycardia with frequent PACs. Medication review reveals patient takes nadolol as recommended by her GI doctor she had not had previous episodes of bradycardia or hypotension. Blood pressure was soft in the ER although it has improved at this time ED provider wishes to admit under observation for symptomatic bradycardia, near syncope. Her labs overall were unremarkable she reports that she had a cardiac work-up including echocardiogram in July of this year which was normal per her family. Hospital Course: She was deemed to be having bradycardia secondary to medication side effect which is now developed. She was admitted for work-up and management of bradycardia however since admission she has remained stable. Bradycardia improved and her pulse was in the low 60s. Her nadolol dose was held throughout admission. She is deemed stable today for discharge to continue reduced dose of nadolol to 10 mg daily. She will follow-up with our [facility] facility nurse and cardiology for evaluation. Vital Signs/Physical Exam: Temp Pulse Resp BP Pulse Ox 97.3 F 59 18 117/67 100 10/19/21 08:00 10/19/21 08:00 10/19/21 08:00 10/19/21 08:00 10/19/21 08:00 General: Alert, Oriented x3 HEENT: Atraumatic, Normocephalic Neck: Supple Respiratory: Normal air movement Cardiovascular: Regular rate/rhythm, Normal S1 S2 Gastrointestinal: Soft and benign Musculoskeletal: No swelling Neurological: Normal speech, Normal strength at 5/5 x4 extr Laboratory Data at Discharge: WBC 2.8 K/uL (4.3-10.9) L D 10/18/21 03:00 Hgb 10.1 g/dL (12.0-15.0) L 10/18/21 03:00 Hct 31.6 % (36.0-45.0) L 10/18/21 03:00 Plt Count 81 K/uL (152-406) L D 10/18/21 03:00 PT 11.6 SECONDS (9.5-12.5) 10/17/21 20:20 INR 1.05 10/17/21 20:20 Sodium 141 mmol/L (136-145) 10/18/21 03:00 Potassium 4.1 mmol/L (3.5-5.1) 10/18/21 03:00 BUN 14 mg/dL (7-18) 10/18/21 03:00 Creatinine 0.62 mg/dL (0.55-1.3) 10/18/21 03:00 Glucose 100 mg/dL (74-106) 10/18/21 03:00 Magnesium 2.2 mg/dL (1.8-2.4) 10/17/21 20:20 Total Bilirubin 0.7 mg/dL (0.2-1.0) 10/18/21 03:00 AST 19 U/L (15-37) 10/18/21 03:00 ALT 26 U/L (12-78) 10/18/21 03:00 Alkaline Phosphatase 69 U/L (45-117) 10/18/21 03:00 Home Medications: Levothyroxine Sodium [Synthroid] 112 mg PO DAILY 08/11/11 nadoloL [Corgard] 20 mg PO DAILY 01/25/15 Metformin HCl [Glucophage] 250 mg PO BIDWM 06/14/16 Calcium Carbonate/Vitamin D3 [Caltrate 600 + D Tablet] 1 each PO DAILY 10/31/20 Risedronate Sodium [Actonel] 150 mg PO SEECOM 10/31/20 Sertraline [Zoloft] 100 mg PO DAILY 10/31/20 Omeprazole 20 mg PO PRN PRN 06/19/21 Famotidine [Pepcid AC] 20 mg PO BEDTIME 10/18/21 Iron Fum/Folic Acid/Mv,Min 15 [Hemocyte Plus Capsule] 1 tab PO DAILY 10/18/21 Losartan Potassium [Cozaar*] 50 mg PO DAILY 10/18/21 Diet: ADA Followup: Shailesh Lazcano MD [ASSOCIATE-ACTIVE - CAN ADMIT] - Murillo,Na Ly, DO [Primary Care Provider] -
[2021-10-19 12:35] VITALS: BP 112/61; TEMP 97.7
--- NOTE | 2021-10-19 12:49 | CON ---
Date of Consultation: 10/18/2021 Admitted on 10/17/[address] Bowman's service for bradycardia. I saw the patient on 10/18/2021. History Of Present Illness: Mrs. De Guzman is a 61-year-old woman liver fibrosis, esophageal varices, breast cancer, osteoporosis, hypothyroidism, diabetes, and hypertension. She came in to [facility] emergency room because of bradycardia. Heart rate was in the 30s. She has been taking Corgard for her esophageal varices. She also takes Actonel, Zoloft, Prilosec, iron, calcium, Synthroid, losarta n, and metformin. Was just recently started on losartan. She does not have any symptoms of bradycar lisa. Her heart rate today is in the 50s after Corgard has been held. She denied syncope. Denied sh ortness of breath, nausea, vomiting, diaphoresis, PND, orthopnea, pedal edema, or palpitation. Past Medical History: As stated above. Allergies: INCLUDE LISINOPRIL. Review of Systems: Negative. Social History: Negative. Family History: Negative. Medications: Listed earlier. Physical Examination: Vital Signs: Stable. Afebrile. HEENT: Negative. Neck: Supple with no bruit, lymphadenopathy, JVD, or thyromegaly. Chest: Clear. Cardiac: Revealed a regular . No murmurs or rubs. Abdomen: Benign. Extremities: Revealed no clubbing, cyanosis, or edema. Diagnostic Data: All within normal limit except for the EKG showing bradycardia. Her chest x-ray sh owed cardiomegaly, but her echocardiogram was normal. Impression And Plan: Bradycardia, most likely secondary to Corgard. I think this needs to be held. Her heart rate is in the 50s. Continue losartan for her blood pressure. She needs to reconsult wit h her rough rice grader regarding her esophageal varices and what to treat those with. She is to co ntinue her medication for osteoporosis, Synthroid, diabetes, and hypertension. I am comfortable with Mrs. De Guzman going home without the Corgard. If her bradycardia reoccurs, we will re-evaluate her wi an event monitor as an outpatient. okay with Dr. Bowman. NB/ERIC Voice ID: [id number] Report ID: [id number]
== END 2021-10-19 11:36 | disposition home or self-care (01) ==
LOC: ER 19:12 → ERHOLD 22:20 → 4TH 10-18 00:14
PROVIDERS: ADMIT Internal Medicine Nephrology; ATTEND Internal Medicine Nephrology
DX: R00.1 Bradycardia, unspecified (principal); T50.995A Adverse effect of other drugs, medicaments and biological substances, initial encounter; E11.9 Type 2 diabetes mellitus without complications; K74.00 Hepatic fibrosis, unspecified; K74.60 Unspecified cirrhosis of liver; I85.10 Secondary esophageal varices without bleeding; I10 Essential (primary) hypertension; E03.9 Hypothyroidism, unspecified; Z20.822 Contact with and (suspected) exposure to COVID-19; Z88.8 Allergy status to other drugs, medicaments and biological substances; Z90.49 Acquired absence of other specified parts of digestive tract; Z82.49 Family history of ischemic heart disease and other diseases of the circulatory system
CPT/HCPCS: 93005; 93306; 85025 ×2; 80048; 36415; 83735; 85610; 85379; 80076; 84443; 81003; 84484; 84439; 80053; 83880; 96360; 99285; U0003; J1650; J7040; G0378 ×3